=== PATIENT | female | born 1990 | race Caucasian/White ===

== ENCOUNTER 2016-05-02 13:24 | Emergency (ER) | payer OTHER ==
[2016-05-02] MEDS ORDERED: SODIUM CHLORIDE 0.9% 1,000 ML IV STA (14:58)
[2016-05-02] MEDS ORDERED: METOCLOPRAMIDE 5 MG/ML 2 ML VIAL IVP STA (14:58)
--- NOTE | 2016-05-02 14:59 | ED ---
Abdominal Pain HPI - General Chief Complaint: Abdominal Pain Stated Complaint: abd pain. preg 1week Time Seen by Provider: 05/02/16 14:51 Source: patient, RN notes reviewed Mode of arrival: ambulatory Limitations: no limitations - History of Present Illness Initial Comments: 26-year-old female presents emergency Department chief complaint of lower pelvic cramping and abdominal pain. Patient states she's also had some nausea with this. Patient states that she is insensate for the past few days. Patient denies any fever or chills with this. Patient denies any cough cold runny nose. Patient states that she did miss her last menstrual cycle so she is concerned that she may be . Patient states that she hasn't had any other symptoms at this time. 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 - Related Data Home Medications Medication Instructions Recorded Confirmed No Known Home Medications [No 05/02/16 05/02/16 Known Home Medications] Allergies Allergy/AdvReac Type Severity Reaction Status Date / Time adhesive Allergy Rash/Hives Verified 05/02/16 15:00 latex Allergy Rash/Hives Verified 05/02/16 15:00 codeine AdvReac Nausea & Verified 05/02/16 15:00 Vomiting metronidazole [From Flagyl] AdvReac Nausea & Verified 05/02/16 15:00 Vomiting Review of Systems ROS Statement: Those systems with pertinent positive or pertinent negative responses have been documented in the HPI. ROS Other: All systems not noted in ROS Statement are negative. Past Medical History Past Medical History: Hypertension Additional Past Medical History / Comment(s): Back pain History of Any Multi-Drug Resistant Organisms: None Reported Past Surgical History: Ear Surgery Additional Past Surgical History / Comment(s): laproscopy for ovarian cyst removal, D&C, RIGHT EAR X4 Past Anesthesia/Blood Transfusion Reactions: Motion Sickness, Postoperative Nausea & Vomiting (PONV) Past Psychological History: Depression Smoking Status: Former smoker Past Alcohol Use History: Rare Additional Past Alcohol Use History / Comment(s): QUIT SMOKING IN 2014 STARTED SMOKING AT AGE 18/ SMOKED 1/2 PPD OR LESS Past Drug Use History: None Reported - Past Family History FATHER Family Medical History: Cancer General Exam - General Exam Comments Initial Comments: General: The patient is awake and alert, in no distress, and does not appear acutely ill. Eye: Pupils are equal, round and reactive to light, extra-ocular movements are intact; there is normal conjunctiva bilaterally. No signs of icterus. Ears, nose, mouth and throat: There are moist mucous membranes and no oral lesions. Neck: The neck is supple, there is no tenderness. Cardiovascular: There is a regular rate and rhythm. No murmur, rub or gallop is appreciated. Respiratory: Lungs are clear to auscultation, respirations are non-labored, breath sounds are equal. No wheezes, stridor, rales, or rhonchi. Gastrointestinal: Soft, non-distended, or pelvic pain to palpation of the abdomen without masses or organomegaly noted. There is no rebound or guarding present. No CVA tenderness. Bowel sounds are unremarkable. Back: There is no tenderness to palpation in the midline. There is no obvious deformity. No rashes noted. Musculoskeletal: Normal ROM, no tenderness, There is no pedal edema. There is no calf tenderness or swelling. Sensation intact. Pulses equal bilaterally 2+. Neurological: CN II-XII intact, There are no obvious motor or sensory deficits. Coordination appears grossly intact. Speech is normal. Skin: Skin is warm and dry and no rashes or lesions are noted. Psychiatric: Cooperative, appropriate mood & affect, normal judgment. Limitations: no limitations External exam: Present: normal external exam Speculum exam: Present: normal speculum exam, vaginal discharge (white/ minimal brown) By manual exam: Present: normal by manual exam Course Vital Signs 05/02/16 05/02/16 14:12 17:56 Temperature 99 F 97.1 F L Pulse Rate 71 87 Respiratory 20 16 Rate Blood Pressure 120/75 106/55 O2 Sat by Pulse 100 100 Oximetry Medical Decision Making - Medical Decision Making 26-year-old female presents with pelvic cramping and vomiting. At this time patient's pelvic exam was performed as well as the ultrasound. We discussed that her level is very low. We did discuss that she is going to follow up for repeat hCG and she is follow-up with her [facility] [employer] [facility]. We discussed return parameters. We discussed the vaginal discharge is white with some brown this could be the start of blood. Her blood type is patent a positive looking back to the lab work. We did discuss follow-up we discussed all patient's questions. She stated that she understood. This time she'll be discharged home. - Lab Data Result diagrams: 05/02/16 15:10 05/02/16 15:10 Lab Results 05/02/16 05/02/16 05/02/16 Range/Units 14:45 15:10 15:10 WBC 6.9 (3.8-10.6) k/uL RBC 4.23 (3.80-5.40) m/uL Hgb 13.5 (11.4-16.0) gm/dL Hct 40.9 (34.0-46.0) % MCV 96.7 (80.0-100.0) fL MCH 32.0 (25.0-35.0) pg MCHC 33.1 (31.0-37.0) g/dL RDW 12.6 (11.5-15.5) % Plt Count 229 (150-450) k/uL Neutrophils % 62 % Lymphocytes % 30 % Monocytes % 4 % Eosinophils % 2 % Basophils % 0 % Neutrophils # 4.3 (1.3-7.7) k/uL Lymphocytes # 2.1 (1.0-4.8) k/uL Monocytes # 0.3 (0-1.0) k/uL Eosinophils # 0.1 (0-0.7) k/uL Basophils # 0.0 (0-0.2) k/uL Sodium 141 (137-145) mmol/L Potassium 5.9 H (3.5-5.1) mmol/L Chloride 110 H (98-107) mmol/L Carbon Dioxide 20 L (22-30) mmol/L Anion Gap 11 mmol/L BUN 9 (7-17) mg/dL Creatinine 0.70 (0.52-1.04) mg/dL Est GFR (MDRD) Af Amer >60 (>60 ml/min/1.73 sqM) Est GFR (MDRD) Non-Af >60 (>60 ml/min/1.73 sqM) Glucose 89 (74-99) mg/dL Calcium 8.8 (8.4-10.2) mg/dL Total Bilirubin 0.8 (0.2-1.3) mg/dL AST 36 (14-36) U/L ALT 21 (9-52) U/L Alkaline Phosphatase 62 (38-126) U/L Total Protein 7.4 (6.3-8.2) g/dL Albumin 4.4 (3.5-5.0) g/dL Amylase 40 (30-110) U/L HCG, Quant 44.3 mIU/mL Urine HCG, Qual Not Detected (Not Detectd) - Radiology Data Radiology results: report reviewed, image reviewed Disposition Clinical Impression: Pelvic pain, Threatened miscarriage in early Disposition: HOME SELF-CARE Condition: Stable Instructions: Threatened Miscarriage (ED) Additional Instructions: Please use medication as discussed. Please follow up with family doctor if symptoms have not improved over the next two days. Please return to the emergency room if your symptoms increase or worsen or for any other concerns. Referrals: Asael Cheema MD [Primary Care Provider] - 1-2 days Time of Disposition: 18:03
[2016-05-02 15:28] LABS: Basophils % (A) 0 %; CH 33.8; CHCM 35.1; Eosinophils # (A) 0.1 k/uL (0-0.7); Eosinophils % (A) 2 %; HCT 40.9 % (34.0-46.0); HDW 2.73; HGB 13.5 gm/dL (11.4-16.0); Luc # (Auto) 0.08; Luc % (Auto) 1; Lymphocytes # (A) 2.1 k/uL (1.0-4.8); Lymphocytes % (A) 30 %; MCHC 33.1 g/dL (31.0-37.0); MCV 96.7 fL (80.0-100.0); Mean Platelet Volume 7.5; Monocytes # (A) 0.3 k/uL (0-1.0); Monocytes % (A) 4 %; Neutrophils # (A) 4.3 k/uL (1.3-7.7); Neutrophils % (A) 62 %; RBC 4.23 m/uL (3.80-5.40); RDW 12.6 % (11.5-15.5); WBC 6.9 k/uL (3.8-10.6); WBC (Perox) 6.69
[2016-05-02 15:39] LABS: ALT 21 U/L (9-52); AST 36 U/L (14-36); Alkaline Phosphatase 62 U/L (38-126); Amylase 40 U/L (30-110); Anion Gap 11 mmol/L; Blood Urea Nitrogen 9 mg/dL (7-17); Calcium 8.8 mg/dL (8.4-10.2); Carbon Dioxide 20 mmol/L (22-30); Chloride 110 mmol/L (98-107); Glucose 89 mg/dL (74-99); Non-African American GFR(MDRD) >60 (>60 ml/min/1.73 sqM); Sodium 141 mmol/L (137-145); Total Bilirubin 0.8 mg/dL (0.2-1.3); Total Protein 7.4 g/dL (6.3-8.2)
[2016-05-02 15:40] LABS: Potassium 5.9 mmol/L (3.5-5.1)
[2016-05-02 15:54] LABS: HCG,Quantitative Serum 44.3 mIU/mL
[2016-05-02 17:56] VITALS: BP 106/55; PULSE 87; RESP 16; TEMP 97.1
--- NOTE | 2016-05-02 17:57 | US ---
EXAMINATION TYPE: US OB <= 14 wk fetus DATE OF EXAM: 05/02/2016 5:06 PM COMPARISON: Prior exam second of May 2015 CLINICAL HISTORY: Pelvic pain. EXAM PERFORMED: Transvaginal (TV) and Transabdominal (TA) endovaginal scanning performed for better evaluation of the uterus and endometrium. EXAM MEASUREMENTS: GESTATIONAL AGE / DATING Physician Established: not yet established Dates by LMP: (5 weeks/4 days) EDC: 12/29/16 Dates by First Scan: 1st scan today Dates by Current Scan unable to date by todays scan MATERNAL ANATOMY Uterus: 7.0 x 2.9 x 3.1cm Right Ovary: 3.6 x 2.2 x 1.9cm Left Ovary: 2.2 x 1.7 x 1.6cm Post CDS / Adnexa: wnl Presence of corpus luteal cyst: 2.4 x 1.7 x 1.7cm GESTATION / SURVEY Thickened endometrium Date of LMP: 03/24/2016 Beta HcG (if available): 44.3 TECHNOLOGIST IMPRESSION: Possible early , no IUP seen at this time. Endo thickened. Grayscale, color Doppler imaging performed of the right ovary, color flow noted to the right ovary IMPRESSION: No intrauterine is identified at this time, follow-up clinically, consider follow-up imagin g as indicated.
[2016-05-02 19:45] LABS: Appearance,Urine Clear (Clear); Bilirubin,Urine Negative (Negative); Glucose,Urine (UA) Negative (Negative); Ketones,Urine Negative (Negative); Leukocyte Esterase,Urine Negative (Negative); Nitrite,Urine Negative (Negative); PH, Urine 6.5 (5.0-8.0); Protein,Urine Negative (Negative); Specific Gravity,Urine 1.013 (1.001-1.035); UA Billing (MACRO vs. MICRO) CHEM; Urobilinogen,Urine <2.0 mg/dL (<2.0)
== END 2016-05-02 18:15 | disposition home or self-care (01) ==
LOC: EC 13:24
DX: O20.0 Threatened abortion (principal); O34.81 Maternal care for other abnormalities of pelvic organs, first trimester; O26.891 Other specified pregnancy related conditions, first trimester; N83.10 Corpus luteum cyst of ovary, unspecified side; O21.9 Vomiting of pregnancy, unspecified; Z3A.01 Less than 8 weeks gestation of pregnancy; N89.8 Other specified noninflammatory disorders of vagina; Z91.040 Latex allergy status; Z88.5 Allergy status to narcotic agent; Z91.048 Other nonmedicinal substance allergy status; Z88.1 Allergy status to other antibiotic agents; Z87.891 Personal history of nicotine dependence
CPT/HCPCS: 96374; 96361 ×3; 99284; 36415; 80053; 82150; 85025; 81003; 81025; 84702; 87086; 87077; 87186; 76801; 76817; J2765

== ENCOUNTER → 2016-05-04 | Outpatient (CLI) | payer OTHER | END | disposition home or self-care (01) | LOC: LABWHC1 16:19 | PROVIDERS: ATTEND Physician Assistant | DX: O20.0 Threatened abortion (principal); Z3A.00 Weeks of gestation of pregnancy not specified | CPT/HCPCS: 36415; 84702 ==

== ENCOUNTER 2016-05-10 11:55 | Emergency (ER) | payer OTHER ==
[2016-05-10 12:46] VITALS: RESP 16; TEMP 98.7
[2016-05-10 13:00] LABS: Appearance,Urine Clear (Clear); Bilirubin,Urine Negative (Negative); Glucose,Urine (UA) Negative (Negative); Ketones,Urine Negative (Negative); Leukocyte Esterase,Urine Negative (Negative); Nitrite,Urine Negative (Negative); Protein,Urine Negative (Negative); Specific Gravity,Urine 1.001 (1.001-1.035); UA Billing (MACRO vs. MICRO) CHEM; Urobilinogen,Urine <2.0 mg/dL (<2.0)
[2016-05-10] MEDS ORDERED: ONDANSETRON 4 MG/2 ML VIAL IVP STA (13:34)
[2016-05-10] MEDS ORDERED: SODIUM CHLORIDE 0.9% 1,000 ML IV STA ×2 (13:34)
--- NOTE | 2016-05-10 13:40 | ED ---
Nausea/Vomiting/Diarrhea HPI - General Chief complaint: Nausea/Vomiting/Diarrhea Stated complaint: 5 - 6 WEEKS , VOMITING Time Seen by Provider: 05/10/16 13:28 Source: patient Mode of arrival: ambulatory Limitations: no limitations - History of Present Illness Initial comments: This 26-year-old white female presents complaining of some nausea as well as vomiting which is been present for last 3-4 days. She has had occasional diarrhea as well. She has had some lower abdominal cramping during this period. She denies any evidence of vaginal bleeding or discharge. She denies any fever or chills. She states that she has been unable to tolerate food and fluids over this past 3-4 days. She denies any other complaints or modifying factors. She apparently is approximately 5-6 weeks . - Related Data Home Medications Medication Instructions Recorded Confirmed Cephalexin [Keflex] 500 mg PO Q6H 05/10/16 05/10/16 Pnv with Ca,No.72/Iron/FA 1 tab PO HS 05/10/16 05/10/16 [ Plus Tablet] Progesterone,Micronized 200 mg PO HS 05/10/16 05/10/16 [Progesterone] Previous Rx's Medication Instructions Recorded Metoclopramide [Reglan] 10 mg PO Q6H PRN #30 tab 05/10/16 Allergies Allergy/AdvReac Type Severity Reaction Status Date / Time adhesive Allergy Rash/Hives Verified 05/10/16 14:04 latex Allergy Rash/Hives Verified 05/10/16 14:04 codeine AdvReac Nausea & Verified 05/10/16 14:04 Vomiting metronidazole [From Flagyl] AdvReac Nausea & Verified 05/10/16 14:04 Vomiting Review of Systems ROS Statement: Those systems with pertinent positive or pertinent negative responses have been documented in the HPI. ROS Other: All systems not noted in ROS Statement are negative. Past Medical History Past Medical History: Hypertension Additional Past Medical History / Comment(s): Back pain History of Any Multi-Drug Resistant Organisms: None Reported Past Surgical History: Ear Surgery Additional Past Surgical History / Comment(s): laproscopy for ovarian cyst removal, D&C, RIGHT EAR X4 Past Anesthesia/Blood Transfusion Reactions: Motion Sickness, Postoperative Nausea & Vomiting (PONV) Past Psychological History: Depression Smoking Status: Former smoker Past Alcohol Use History: Rare Additional Past Alcohol Use History / Comment(s): QUIT SMOKING IN 2014 STARTED SMOKING AT AGE 18/ SMOKED 1/2 PPD OR LESS Past Drug Use History: None Reported - Past Family History FATHER Family Medical History: Cancer General Exam - General Exam Comments Initial Comments: GENERAL: The patient is well nourished and well hydrated. VITAL SIGNS: Heart rate, blood pressure, respiratory rate reviewed as recorded in nurse's notes. EYES: Pupils are round and reactive. Extraocular movements are intact. No conjunctival / lid redness or swelling. ENT: No external evidence of injury, swelling, or ecchymosis. Airway is patent. Throat is clear. NECK: Nontender. No swelling or evidence of injury. No subcutaneous emphysema. Trachea is midline. No thyroid mass. HEART: Regular rate and rhythm. Good peripheral pulses. LUNGS/CHEST: Breath sounds clear and equal bilaterally. No rales, rhonchi, or wheezes. No ecchymosis, subcutaneous emphysema, or tenderness. ABDOMEN: There is mild tenderness present to the bilateral lower abdomen. No palpable masses or organomegaly. No peritoneal signs. No abdominal wall swelling or ecchymosis. EXTREMITIES: No extremity tenderness. Normal muscle tone and function. No thoracolumbar tenderness. NEUROLOGIC: Sensation is grossly intact. Cranial nerve exam reveals face is symmetrical, tongue is midline, speech is clear. SKIN: No abrasions or ecchymosis is noted. No induration or masses noted. PSYCHIATRIC: Alert and oriented. Appropriate behavior and judgment. Limitations: no limitations Course Vital Signs 05/10/16 12:43 Temperature 98.7 F Pulse Rate 70 Respiratory 16 Rate Blood Pressure 138/78 O2 Sat by Pulse 100 Oximetry Medical Decision Making - Medical Decision Making The patient was seen and examined. An IV is started and she is thoroughly hydrated. She received some Reglan for her nausea with improvement. The laboratory showed a decreased CO2 at 21 she indicates possible mild dehydration. The beta hCG is elevated at 2419. The pelvic ultrasound shows evidence of a right ovarian cyst. A CT a possible gestational sac in the uterus but she appears very early on in her and they could not entirely exclude an ectopic . She is informed of these findings is instructed to return if there is any significant pain on one side or the other. She currently just has occasional mild cramping and symptoms that are not consistent with an ectopic . Her symptoms currently are consistent with hyperemesis gravidarum. Nevertheless, it does not his. As though she is severely dehydrated is felt as though she is stable for discharge. - Lab Data Result diagrams: 05/10/16 14:20 05/10/16 14:20 Lab Results 05/10/16 05/10/16 05/10/16 Range/Units 12:30 14:20 14:20 WBC 9.3 (3.8-10.6) k/uL RBC 4.17 (3.80-5.40) m/uL Hgb 13.8 (11.4-16.0) gm/dL Hct 39.6 (34.0-46.0) % MCV 94.9 (80.0-100.0) fL MCH 33.0 (25.0-35.0) pg MCHC 34.7 (31.0-37.0) g/dL RDW 12.6 (11.5-15.5) % Plt Count 288 (150-450) k/uL Neutrophils % 70 % Lymphocytes % 23 % Monocytes % 5 % Eosinophils % 1 % Basophils % 0 % Neutrophils # 6.5 (1.3-7.7) k/uL Lymphocytes # 2.2 (1.0-4.8) k/uL Monocytes # 0.5 (0-1.0) k/uL Eosinophils # 0.1 (0-0.7) k/uL Basophils # 0.0 (0-0.2) k/uL Sodium (137-145) mmol/L Potassium (3.5-5.1) mmol/L Chloride (98-107) mmol/L Carbon Dioxide (22-30) mmol/L Anion Gap mmol/L BUN (7-17) mg/dL Creatinine (0.52-1.04) mg/dL Est GFR (MDRD) Af Amer (>60 ml/min/1.73 sqM) Est GFR (MDRD) Non-Af (>60 ml/min/1.73 sqM) Glucose (74-99) mg/dL Calcium (8.4-10.2) mg/dL Amylase 32 (30-110) U/L Lipase 49 (23-300) U/L HCG, Quant 2419.4 mIU/mL Urine Color Colorless Urine Appearance Clear (Clear) Urine pH 7.0 (5.0-8.0) Ur Specific [place] 1.001 (1.001-1.035) Urine Protein Negative (Negative) Urine Glucose (UA) Negative (Negative) Urine Ketones Negative (Negative) Urine Blood Negative (Negative) Urine Nitrate Negative (Negative) Urine Bilirubin Negative (Negative) Urine Urobilinogen <2.0 (<2.0) mg/dL Ur Leukocyte Esterase Negative (Negative) 05/10/16 Range/Units 14:20 WBC (3.8-10.6) k/uL RBC (3.80-5.40) m/uL Hgb (11.4-16.0) gm/dL Hct (34.0-46.0) % MCV (80.0-100.0) fL MCH (25.0-35.0) pg MCHC (31.0-37.0) g/dL RDW (11.5-15.5) % Plt Count (150-450) k/uL Neutrophils % % Lymphocytes % % Monocytes % % Eosinophils % % Basophils % % Neutrophils # (1.3-7.7) k/uL Lymphocytes # (1.0-4.8) k/uL Monocytes # (0-1.0) k/uL Eosinophils # (0-0.7) k/uL Basophils # (0-0.2) k/uL Sodium 142 (137-145) mmol/L Potassium 3.8 (3.5-5.1) mmol/L Chloride 106 (98-107) mmol/L Carbon Dioxide 21 L (22-30) mmol/L Anion Gap 15 mmol/L BUN 6 L (7-17) mg/dL Creatinine 0.64 (0.52-1.04) mg/dL Est GFR (MDRD) Af Amer >60 (>60 ml/min/1.73 sqM) Est GFR (MDRD) Non-Af >60 (>60 ml/min/1.73 sqM) Glucose 90 (74-99) mg/dL Calcium 9.7 (8.4-10.2) mg/dL Amylase (30-110) U/L Lipase (23-300) U/L HCG, Quant mIU/mL Urine Color Urine Appearance (Clear) Urine pH (5.0-8.0) Ur Specific [place] (1.001-1.035) Urine Protein (Negative) Urine Glucose (UA) (Negative) Urine Ketones (Negative) Urine Blood (Negative) Urine Nitrate (Negative) Urine Bilirubin (Negative) Urine Urobilinogen (<2.0) mg/dL Ur Leukocyte Esterase (Negative) Disposition Clinical Impression: Dehydration, Hyperemesis gravidarum, Pelvic pain, Nausea and vomiting Disposition: HOME SELF-CARE Condition: Good Instructions: Hyperemesis Gravidarum (ED), Abdominal Pain in (ED) Prescriptions: Metoclopramide [Reglan] 10 mg PO Q6H PRN #30 tab PRN Reason: nausea or vomiting Referrals: Asael Cheema MD [Primary Care Provider] - 1-2 days Peggy Serna DO [Doctor of Osteopathic Medicine] - 05/15/16 Time of Disposition: 16:10
[2016-05-10] MEDS ORDERED: METOCLOPRAMIDE 5 MG/ML 2 ML VIAL IVP STA (14:26)
[2016-05-10 14:35] LABS: Basophils % (A) 0 %; CH 33.8; CHCM 35.8; Eosinophils # (A) 0.1 k/uL (0-0.7); Eosinophils % (A) 1 %; HCT 39.6 % (34.0-46.0); HDW 2.77; HGB 13.8 gm/dL (11.4-16.0); Luc # (Auto) 0.09; Luc % (Auto) 1; Lymphocytes # (A) 2.2 k/uL (1.0-4.8); Lymphocytes % (A) 23 %; MCHC 34.7 g/dL (31.0-37.0); MCV 94.9 fL (80.0-100.0); Mean Platelet Volume 7.5; Monocytes # (A) 0.5 k/uL (0-1.0); Monocytes % (A) 5 %; Neutrophils # (A) 6.5 k/uL (1.3-7.7); Neutrophils % (A) 70 %; RBC 4.17 m/uL (3.80-5.40); RDW 12.6 % (11.5-15.5); WBC 9.3 k/uL (3.8-10.6); WBC (Perox) 9.37
[2016-05-10 15:04] LABS: HCG,Quantitative Serum 2419.4 mIU/mL
--- NOTE | 2016-05-10 15:37 | US ---
EXAMINATION TYPE: US OB <=14 wks transvag DATE OF EXAM: 05/10/2016 3:02 PM COMPARISON: NONE CLINICAL HISTORY: vomiting cramping. EXAM PERFORMED: Transvaginal (TV) and Transabdominal (TA) EXAM MEASUREMENTS: GESTATIONAL AGE / DATING Physician Established: none Dates by LMP: (5 weeks/5 days) EDC: 01/05/2014 Dates by First Scan: none Dates by Current Scan TOO EARLY MATERNAL ANATOMY Uterus: 7.3 X4.2 X 3.9 cm Right Ovary: 3.1 xs 2.3 x 2.1 cm Left Ovary: 2.1 x 1.5 x 1.7 cm Post CDS / Adnexa: wnl Presence of free fluid: no TECHNOLOGIST IMPRESSION: small anechoic structure in uterus ( 0.3cm), corresponding to a 4 week 6 da y gestation No yolk sac or pole identified. Within right ovary is a 2.1 x 1.8 cm complex area, questionable for corpus luteum? Cannot exclude early IUP vs ectopic Correlation with beta-hCG and follow-up examinations are recommended. IMPRESSION: 1. There may be an early gestational sac or decidual reaction. Correlation with beta-hCG and follow-u p is recommended. pole is not identified at this early stage. 2. Cyst on the right ovary. Ectopic is not excluded. Follow-up is recommended.
[2016-05-10 15:45] LABS: Anion Gap 15 mmol/L; Blood Urea Nitrogen 6 mg/dL (7-17); Calcium 9.7 mg/dL (8.4-10.2); Carbon Dioxide 21 mmol/L (22-30); Chloride 106 mmol/L (98-107); Glucose 90 mg/dL (74-99); Non-African American GFR(MDRD) >60 (>60 ml/min/1.73 sqM); Potassium 3.8 mmol/L (3.5-5.1); Sodium 142 mmol/L (137-145)
[2016-05-10 16:34] VITALS: BP 123/71; PULSE 87
== END 2016-05-10 16:34 | disposition home or self-care (01) ==
LOC: EC 11:55
DX: O21.1 Hyperemesis gravidarum with metabolic disturbance (principal); N83.201 Unspecified ovarian cyst, right side; R10.2 Pelvic and perineal pain; Z3A.01 Less than 8 weeks gestation of pregnancy; Z87.891 Personal history of nicotine dependence; Z91.040 Latex allergy status; Z88.3 Allergy status to other anti-infective agents; Z88.5 Allergy status to narcotic agent
CPT/HCPCS: 99284; 36415; 80048; 82150; 83690; 85025; 81003; 84702; 76801; 76817; J2765

== ENCOUNTER 2016-05-26 16:49 | Emergency (ER) | payer OTHER ==
--- NOTE | 2016-05-26 19:33 | ED ---
Female Urogenital HPI - General Chief complaint: Vaginal Bleeding Stated complaint: Vaginal Bleeding - Unknown Length Time Seen by Provider: 05/26/16 19:02 Source: patient, RN notes reviewed Mode of arrival: ambulatory Limitations: no limitations - History of Present Illness Initial comments: 26 yo male presents to the ER with cc of vaginal bleeding in . Patient states her last menstrual cycle was March 31. Patient states she is a area and patient states that she has not had any fever or chills. Patient does admit to some lower abdominal cramping. Patient states she was concerned when she saw the bleeding today so she thought that she should be seen. Patient states that she is not currently having any other symptoms at this time. Patient denies any recent fever, chills, shortness of breath, chest pain, back pain, abdominal pain, nausea vomiting, numbness or tingling, dysuria or hematuria, constipation or diarrhea, headaches or visual changes, or any other current symptoms. Last Menstrual Period: 03/31/16 - Related Data Home Medications Medication Instructions Recorded Confirmed Pnv with Ca,No.72/Iron/FA 1 tab PO HS 05/10/16 05/26/16 [ Plus Tablet] Progesterone,Micronized 200 mg PO HS 05/10/16 05/26/16 [Progesterone] Miconazole 2% Vaginal Cream 1 applic VAGINAL HS 05/26/16 05/26/16 [Monistat 7] Previous Rx's Medication Instructions Recorded Metoclopramide [Reglan] 10 mg PO Q6H PRN #30 tab 05/10/16 Allergies Allergy/AdvReac Type Severity Reaction Status Date / Time adhesive Allergy Rash/Hives Verified 05/26/16 19:20 latex Allergy Rash/Hives Verified 05/26/16 19:20 codeine AdvReac Nausea & Verified 05/26/16 19:20 Vomiting metronidazole [From Flagyl] AdvReac Nausea & Verified 05/26/16 19:20 Vomiting Review of Systems ROS Statement: Those systems with pertinent positive or pertinent negative responses have been documented in the HPI. ROS Other: All systems not noted in ROS Statement are negative. Past Medical History Past Medical History: Hypertension Additional Past Medical History / Comment(s): Back pain History of Any Multi-Drug Resistant Organisms: None Reported Past Surgical History: Ear Surgery Additional Past Surgical History / Comment(s): laproscopy for ovarian cyst removal, D&C, RIGHT EAR X4 Past Anesthesia/Blood Transfusion Reactions: Motion Sickness, Postoperative Nausea & Vomiting (PONV) Past Psychological History: Depression Smoking Status: Former smoker Past Alcohol Use History: None Reported Additional Past Alcohol Use History / Comment(s): QUIT SMOKING IN 2014 STARTED SMOKING AT AGE 18/ SMOKED 1/2 PPD OR LESS Past Drug Use History: None Reported - Past Family History FATHER Family Medical History: Cancer General Exam - General Exam Comments Initial Comments: General: The patient is awake and alert, in no distress, and does not appear acutely ill. Eye: Pupils are equal, round. Ears, nose, mouth and throat: There are moist mucous membranes. Neck: The neck is supple, there is no tenderness. Cardiovascular: There is a regular rate and rhythm. No murmur, rub or gallop is appreciated. Respiratory: Lungs are clear to auscultation, respirations are non-labored, breath sounds are equal. No wheezes, stridor, rales, or rhonchi. Gastrointestinal: Soft, non-distended, non-tender abdomen without masses or organomegaly noted. There is no rebound or guarding present. No CVA tenderness. Bowel sounds are unremarkable. Back: There is no tenderness to palpation in the midline. There is no obvious deformity. No rashes noted. Musculoskeletal: Normal ROM, no tenderness, There is no pedal edema. There is no calf tenderness or swelling. Sensation intact. Pulses equal bilaterally 2+. Neurological: CN II-XII intact, There are no obvious motor or sensory deficits. Coordination appears grossly intact. Speech is normal. Skin: Skin is warm and dry and no rashes or lesions are noted. Psychiatric: Cooperative, appropriate mood & affect, normal judgment. Limitations: no limitations External exam: Present: normal external exam Speculum exam: Present: vaginal bleeding (Minimal) By manual exam: Present: normal by manual exam Course Vital Signs 05/26/16 05/26/16 17:28 19:38 Temperature 98.5 F 98.8 F Pulse Rate 90 65 Respiratory 18 16 Rate Blood Pressure 126/74 104/54 O2 Sat by Pulse 100 99 Oximetry - Reevaluation(s) Reevaluation #1: 05/26/16 20:48 WE will send urine for culture. Medical Decision Making - Medical Decision Making 26-year-old female presents to the emergency department with a chief complaint of vaginal bleeding in . This patient's ultrasound and laboratory is reviewed. At this time we discussed follow-up for repeat hCG and follow-up with her [employer] to Sunday. She was offered STD testing she states that the urine. Discussed return parameters QUESTIONS. She states she understood all questions have been answered. She will be discharged. - Lab Data Result diagrams: 05/26/16 19:30 05/26/16 19:30 Lab Results 05/26/16 05/26/16 05/26/16 Range/Units 19:30 19:30 19:30 WBC 9.7 (3.8-10.6) k/uL RBC 4.01 (3.80-5.40) m/uL Hgb 13.1 (11.4-16.0) gm/dL Hct 38.5 (34.0-46.0) % MCV 95.9 (80.0-100.0) fL MCH 32.7 (25.0-35.0) pg MCHC 34.0 (31.0-37.0) g/dL RDW 13.2 (11.5-15.5) % Plt Count 245 (150-450) k/uL Neutrophils % 64 % Lymphocytes % 28 % Monocytes % 5 % Eosinophils % 2 % Basophils % 0 % Neutrophils # 6.2 (1.3-7.7) k/uL Lymphocytes # 2.7 (1.0-4.8) k/uL Monocytes # 0.5 (0-1.0) k/uL Eosinophils # 0.2 (0-0.7) k/uL Basophils # 0.0 (0-0.2) k/uL Sodium 139 (137-145) mmol/L Potassium 3.7 (3.5-5.1) mmol/L Chloride 105 (98-107) mmol/L Carbon Dioxide 22 (22-30) mmol/L Anion Gap 12 mmol/L BUN 9 (7-17) mg/dL Creatinine 0.62 (0.52-1.04) mg/dL Est GFR (MDRD) Af Amer >60 (>60 ml/min/1.73 sqM) Est GFR (MDRD) Non-Af >60 (>60 ml/min/1.73 sqM) Glucose 76 (74-99) mg/dL Calcium 9.4 (8.4-10.2) mg/dL Total Bilirubin 0.8 (0.2-1.3) mg/dL AST 18 (14-36) U/L ALT 31 (9-52) U/L Alkaline Phosphatase 64 (38-126) U/L Total Protein 7.3 (6.3-8.2) g/dL Albumin 4.2 (3.5-5.0) g/dL HCG, Quant 18813.3 mIU/mL Urine Color Urine Appearance (Clear) Urine pH (5.0-8.0) Ur Specific [place] (1.001-1.035) Urine Protein (Negative) Urine Glucose (UA) (Negative) Urine Ketones (Negative) Urine Blood (Negative) Urine Nitrate (Negative) Urine Bilirubin (Negative) Urine Urobilinogen (<2.0) mg/dL Ur Leukocyte Esterase (Negative) Urine RBC (0-5) /hpf Urine WBC (0-5) /hpf Ur Squamous Epith Cells (0-4) /hpf Urine Bacteria (None) /hpf Urine Mucus (None) /hpf Urine HCG, Qual (Not Detectd) Blood Type A Positive Blood Type Recheck No 05/26/16 05/26/16 Range/Units 19:30 19:30 WBC (3.8-10.6) k/uL RBC (3.80-5.40) m/uL Hgb (11.4-16.0) gm/dL Hct (34.0-46.0) % MCV (80.0-100.0) fL MCH (25.0-35.0) pg MCHC (31.0-37.0) g/dL RDW (11.5-15.5) % Plt Count (150-450) k/uL Neutrophils % % Lymphocytes % % Monocytes % % Eosinophils % % Basophils % % Neutrophils # (1.3-7.7) k/uL Lymphocytes # (1.0-4.8) k/uL Monocytes # (0-1.0) k/uL Eosinophils # (0-0.7) k/uL Basophils # (0-0.2) k/uL Sodium (137-145) mmol/L Potassium (3.5-5.1) mmol/L Chloride (98-107) mmol/L Carbon Dioxide (22-30) mmol/L Anion Gap mmol/L BUN (7-17) mg/dL Creatinine (0.52-1.04) mg/dL Est GFR (MDRD) Af Amer (>60 ml/min/1.73 sqM) Est GFR (MDRD) Non-Af (>60 ml/min/1.73 sqM) Glucose (74-99) mg/dL Calcium (8.4-10.2) mg/dL Total Bilirubin (0.2-1.3) mg/dL AST (14-36) U/L ALT (9-52) U/L Alkaline Phosphatase (38-126) U/L Total Protein (6.3-8.2) g/dL Albumin (3.5-5.0) g/dL HCG, Quant mIU/mL Urine Color Yellow Urine Appearance Cloudy H (Clear) Urine pH 7.0 (5.0-8.0) Ur Specific [place] 1.014 (1.001-1.035) Urine Protein Negative (Negative) Urine Glucose (UA) Negative (Negative) Urine Ketones Negative (Negative) Urine Blood Moderate H (Negative) Urine Nitrate Negative (Negative) Urine Bilirubin Negative (Negative) Urine Urobilinogen 2.0 (<2.0) mg/dL Ur Leukocyte Esterase Negative (Negative) Urine RBC 1 (0-5) /hpf Urine WBC 2 (0-5) /hpf Ur Squamous Epith Cells 5 H (0-4) /hpf Urine Bacteria Occasional H (None) /hpf Urine Mucus Rare H (None) /hpf Urine HCG, Qual Detected (Not Detectd) Blood Type Blood Type Recheck Disposition Clinical Impression: Threatened miscarriage Disposition: HOME SELF-CARE Condition: Stable Instructions: Threatened Miscarriage (ED) Additional Instructions: Please use medication as discussed. Please follow up with family doctor if symptoms have not improved over the next two days. Please return to the emergency room if your symptoms increase or worsen or for any other concerns. Referrals: Asael Cheema MD [Primary Care Provider] - 1-2 days
[2016-05-26 19:48] LABS: Basophils % (A) 0 %; CH 33.8; CHCM 35.4; Eosinophils # (A) 0.2 k/uL (0-0.7); Eosinophils % (A) 2 %; HCT 38.5 % (34.0-46.0); HDW 2.74; HGB 13.1 gm/dL (11.4-16.0); Luc # (Auto) 0.11; Luc % (Auto) 1; Lymphocytes # (A) 2.7 k/uL (1.0-4.8); Lymphocytes % (A) 28 %; MCH 32.7 pg (25.0-35.0); MCV 95.9 fL (80.0-100.0); Mean Platelet Volume 7.5; Monocytes # (A) 0.5 k/uL (0-1.0); Monocytes % (A) 5 %; Neutrophils # (A) 6.2 k/uL (1.3-7.7); Neutrophils % (A) 64 %; RBC 4.01 m/uL (3.80-5.40); RDW 13.2 % (11.5-15.5); WBC 9.7 k/uL (3.8-10.6); WBC (Perox) 10.08
[2016-05-26 19:51] LABS: Appearance,Urine Cloudy (Clear); Bacteria,Urine Occasional /hpf; Bilirubin,Urine Negative (Negative); Glucose,Urine (UA) Negative (Negative); Ketones,Urine Negative (Negative); Leukocyte Esterase,Urine Negative (Negative); Mucus,Urine Rare /hpf; Nitrite,Urine Negative (Negative); Particle Count 15828; Protein,Urine Negative (Negative); RBC,Urine 1 /hpf (0-5); Specific Gravity,Urine 1.014 (1.001-1.035); Squamous Epithelial Cell,Urine 5 /hpf (0-4); UA Billing (MACRO vs. MICRO) MICRO; WBC,Urine 2 /hpf (0-5)
[2016-05-26 20:00] LABS: ALT 31 U/L (9-52); AST 18 U/L (14-36); Alkaline Phosphatase 64 U/L (38-126); Anion Gap 12 mmol/L; Blood Urea Nitrogen 9 mg/dL (7-17); Calcium 9.4 mg/dL (8.4-10.2); Carbon Dioxide 22 mmol/L (22-30); Chloride 105 mmol/L (98-107); Glucose 76 mg/dL (74-99); Non-African American GFR(MDRD) >60 (>60 ml/min/1.73 sqM); Potassium 3.7 mmol/L (3.5-5.1); Sodium 139 mmol/L (137-145); Total Bilirubin 0.8 mg/dL (0.2-1.3); Total Protein 7.3 g/dL (6.3-8.2)
[2016-05-26 20:47] LABS: HCG,Quantitative Serum 24448.3 mIU/mL
--- NOTE | 2016-05-26 20:56 | US ---
EXAMINATION TYPE: US OB <= 14 wk fetus DATE OF EXAM: 05/26/2016 8:15 PM COMPARISON: Previous in PACS CLINICAL HISTORY: Pain. Light vaginal bleeding today EXAM PERFORMED: Transabdominal (TA) EXAM MEASUREMENTS: GESTATIONAL AGE / DATING Physician Established: Not yet established Dates by LMP: (8 weeks/0 days) EDC: 01/05/2017 Dates by First Scan: No IUP Seen Dates by Current Scan for: (6 weeks/3 days) EDC: 01/16/2017 MATERNAL ANATOMY Uterus: 11.0 x 5.3 x 2.6 cm Right Ovary: 2.6 x 2.1 x 2.1 cm Left Ovary: 2.2 x 1.3 x 1.9 cm Post CDS / Adnexa: wnl Presence of free fluid: No Presence of corpus luteal cyst: Right Ovary= 1.7 x 1.7 x 1.8 cm Presence of subchorionic bleed: No GESTATION / SURVEY CRL: 0.6 cm (6 weeks/3 days) MSD: wnl Yolk Sac (normal less than 6mm): 4mm Heart Rate: 143 bpm Rhythm: Normal IUP: Viable IUP Date of LMP: 03/31/2016 TECHNOLOGIST IMPRESSION: Single, viable IUP/ Pt has known uterine unicornis, this is visualized with uterus "curving" to right side IMPRESSION: The ultrasound gestational age is 6 weeks 3 days. The DERIAN is 01/15/2017. I see no complicating process .
[2016-05-26 21:45] VITALS: BP 115/64; PULSE 64; RESP 18; TEMP 98.3
== END 2016-05-26 21:47 | disposition home or self-care (01) ==
LOC: EC 16:49
DX: O20.0 Threatened abortion (principal); Z3A.01 Less than 8 weeks gestation of pregnancy; Z87.891 Personal history of nicotine dependence; Z79.899 Other long term (current) drug therapy; Z88.5 Allergy status to narcotic agent; Z88.1 Allergy status to other antibiotic agents; Z91.040 Latex allergy status; Z91.048 Other nonmedicinal substance allergy status
CPT/HCPCS: 36415; 76801; 80053; 81001; 81025; 84702; 85025; 86900; 86901; 87086; 99284

== ENCOUNTER → 2016-05-29 | Outpatient (CLI) | payer OTHER | END | disposition home or self-care (01) | LOC: LABWHC1 07:28 | PROVIDERS: ATTEND Physician Assistant | DX: O20.0 Threatened abortion (principal) | CPT/HCPCS: 36415; 84702 ==

== ENCOUNTER → 2016-05-29 | Outpatient (CLI) | payer OTHER ==
--- NOTE | 2016-05-29 08:02 | US ---
EXAMINATION TYPE: US OB <= 14 wk fetus DATE OF EXAM: 05/29/2016 7:19 AM COMPARISON: NONE CLINICAL HISTORY: 26-year-old female First trimester spotting O46.91. patient was in ER yuliya night and had an exam done showing a viable IUP. TECHNIQUE: Transabdominal scanning FINDINGS: EXAM MEASUREMENTS: GESTATIONAL AGE / DATING Physician Established: not established Dates by LMP: (8 weeks/3 days) EDC: 01/15/2017 Dates by First Scan: (6 weeks/6 days) EDC: 01/16/2017 Dates by Current Scan for: (7 weeks/0 days) EDC: 01/15/2017 MATERNAL ANATOMY Uterus: 10.7 x 4.1 x 5.2 cm. The previous exam commented on a known unicornuate uterus. The sonograph er does not provide that history on the present exam. There may be a tiny 6 mm perigestational bleed along the superior margin of the gestational sac. Right Ovary: 2.9 x 1.8 x 1.6 cm Left Ovary: 1.9 x 1.6 x 2.4 cm Post CDS / Adnexa: wnl Presence of free fluid: no free fluid GESTATION / SURVEY CRL: 1.0cm (7 weeks/0 days) Yolk Sac (normal less than 6mm): 3 mm Heart Rate: 143 bpm Rhythm: Normal IUP: viable IMPRESSION: 1. Single live intrauterine with gestational age of 6 weeks 6 days based on the dating scan of 05/26/2016. Current ultrasound biometry is 17 weeks 0 days (+/- 4 days). 2. There may be a tiny 6 mm superior perigestational bleed. Follow-up as clinically indicated. 3. We note a history of unicornuate uterus on the prior exam. That history is not provided on the cur amnat study. 4. Complete survey recommended at 18-20 weeks.
== END | disposition home or self-care (01) ==
LOC: RADUSWWP 06:58
PROVIDERS: ATTEND Obstetrics & Gynecology
DX: O46.91 Antepartum hemorrhage, unspecified, first trimester (principal); Z36 Encounter for antenatal screening of mother; Z3A.01 Less than 8 weeks gestation of pregnancy
CPT/HCPCS: 76801

== ENCOUNTER → 2016-05-31 | Outpatient (CLI) | payer OTHER ==
[2016-05-31 17:47] LABS: CH 33.6; CHCM 34.9; HCT 38.7 % (34.0-46.0); HDW 2.71; HGB 13.1 gm/dL (11.4-16.0); MCH 32.8 pg (25.0-35.0); MCHC 33.9 g/dL (31.0-37.0); MCV 96.8 fL (80.0-100.0); RDW 12.8 % (11.5-15.5); WBC 10.8 k/uL (3.8-10.6)
[2016-05-31 17:56] LABS: Glucose 83 mg/dL (74-99); Non-African American GFR(MDRD) >60 (>60 ml/min/1.73 sqM)
[2016-05-31 18:27] LABS: Hepatitis B Surface Ag Index 0.08
[2016-06-02 04:40] LABS: Toxoplasma Antibody (IgG) <3.0 IU/mL (<7.2)
[2016-06-02 07:35] LABS: HIV-1/HIV-2 Ab Screen NONREAC (NON REAC)
== END | disposition home or self-care (01) ==
LOC: LABWHC1 17:20
PROVIDERS: ATTEND Obstetrics & Gynecology
DX: O26.811 Pregnancy related exhaustion and fatigue, first trimester (principal); Z3A.00 Weeks of gestation of pregnancy not specified
CPT/HCPCS: 36415; 82565; 82947; 85027; 86762; 86777; 86778; 86780; 86850; 86900; 86901; 87340; 87389

== ENCOUNTER 2016-06-01 20:06 | Emergency (ER) | payer OTHER ==
[2016-06-01 20:33] VITALS: TEMP 98.9
[2016-06-01] MEDS ORDERED: SODIUM CHLORIDE 0.9% 500 ML IV ONE (20:57)
--- NOTE | 2016-06-01 23:07 | ED ---
Female Urogenital HPI - General Chief complaint: Vaginal Bleeding Stated complaint: bleeding, 8 weeks preg Time Seen by Provider: 06/01/16 20:37 Source: patient Mode of arrival: ambulatory Limitations: no limitations - History of Present Illness Initial comments: This patient is 26-year-old woman who has had approximately 2-3 hours of painless vaginal bleeding. She believes she is about 8 weeks by ultrasound. She states that she was at work tonight and noticed she had a gush of blood. States it was really. But has slowed. Patient denies any abdominal pain, passing tissue, fever, symptoms of anemia including no chest pain, dyspnea , hemoptysis, palpitations. No leg swelling or pain MD Complaint: vaginal bleeding -: hour(s) Severity: moderate Quality: other (No pain) Consistency: other (Slowly) Improves with: none Worsens with: none Last Menstrual Period: 03/31/16 Patient : Yes Associated Symptoms: denies other symptoms - Related Data Home Medications Medication Instructions Recorded Confirmed Pnv with Ca,No.72/Iron/FA 1 tab PO HS 05/10/16 06/01/16 [ Plus Tablet] Progesterone,Micronized 200 mg PO HS 05/10/16 06/01/16 [Progesterone] Allergies Allergy/AdvReac Type Severity Reaction Status Date / Time adhesive Allergy Rash/Hives Verified 06/01/16 21:04 latex Allergy Rash/Hives Verified 06/01/16 21:04 codeine AdvReac Nausea & Verified 06/01/16 21:04 Vomiting metronidazole [From Flagyl] AdvReac Nausea & Verified 06/01/16 21:04 Vomiting Review of Systems ROS Statement: Those systems with pertinent positive or pertinent negative responses have been documented in the HPI. ROS Other: All systems not noted in ROS Statement are negative. Constitutional: Denies: fever, chills Respiratory: Denies: cough, dyspnea, wheezes Cardiovascular: Denies: chest pain, palpitations, edema, syncope Gastrointestinal: Denies: abdominal pain, nausea, vomiting, diarrhea, constipation Genitourinary: Reports: abnormal menses. Denies: dysuria, hematuria, dyspareunia Musculoskeletal: Denies: back pain Skin: Denies: rash Neurological: Denies: headache, weakness, numbness Hematological/Lymphatic: Denies: easy bleeding Past Medical History Past Medical History: Hypertension Additional Past Medical History / Comment(s): Back pain History of Any Multi-Drug Resistant Organisms: None Reported Past Surgical History: Ear Surgery Additional Past Surgical History / Comment(s): laproscopy for ovarian cyst removal, D&C, RIGHT EAR X4 Past Anesthesia/Blood Transfusion Reactions: Motion Sickness, Postoperative Nausea & Vomiting (PONV) Past Psychological History: Depression Smoking Status: Former smoker Past Alcohol Use History: None Reported Additional Past Alcohol Use History / Comment(s): QUIT SMOKING IN 2014 STARTED SMOKING AT AGE 18/ SMOKED 1/2 PPD OR LESS Past Drug Use History: None Reported - Past Family History FATHER Family Medical History: Cancer General Exam Limitations: no limitations General appearance: alert, in no apparent distress Head exam: Present: atraumatic, normocephalic, normal inspection Eye exam: Present: normal appearance. Absent: scleral icterus, conjunctival injection Respiratory exam: Present: normal lung sounds bilaterally. Absent: respiratory distress, wheezes, rales, rhonchi, stridor Cardiovascular Exam: Present: regular rate, normal rhythm, normal heart sounds. Absent: systolic murmur, diastolic murmur, rubs, gallop GI/Abdominal exam: Present: soft. Absent: distended, tenderness, guarding, rebound, rigid External exam: Present: normal external exam. Absent: erythema, swelling, lesions, lacerations, ecchymosis Speculum exam: Present: normal speculum exam, vaginal bleeding. Absent: erythema, cervical discharge, foreign body, tissue, laceration By manual exam: Present: normal by manual exam. Absent: cervical motion tenderness, adnexal tenderness, adnexal mass, uterine tenderness Extremities exam: Present: normal inspection, normal capillary refill. Absent: pedal edema, calf tenderness Back exam: Absent: CVA tenderness (R), CVA tenderness (L) Neurological exam: Present: alert Skin exam: Present: warm, dry, intact, normal color. Absent: rash Course Vital Signs 06/01/16 06/01/16 20:31 23:29 Temperature 98.9 F Pulse Rate 86 80 Respiratory 18 12 Rate Blood Pressure 124/73 120/80 O2 Sat by Pulse 100 100 Oximetry Medical Decision Making - Lab Data Lab Results 06/01/16 Range/Units 21:00 HCG, Quant 85240.3 mIU/mL Disposition Clinical Impression: Threatened miscarriage in early , Subchorionic hematoma in first trimester Disposition: HOME SELF-CARE Condition: Good Instructions: Subchorionic Hemorrhage (ED) Referrals: Asael Cheema MD [Primary Care Provider] - 1-2 days Peggy Serna DO [Doctor of Osteopathic Medicine] - 1-2 days
[2016-06-01 23:30] VITALS: BP 120/80; PULSE 80; RESP 12
--- NOTE | 2016-06-01 23:39 | US ---
EXAMINATION TYPE: US OB <= 14 wk fetus DATE OF EXAM: 06/01/2016 10:16 PM COMPARISON: 05/29/2016 CLINICAL HISTORY: Bleeding. EXAM PERFORMED: Transabdominal (TA) EXAM MEASUREMENTS: GESTATIONAL AGE / DATING Physician Established: ( 8 weeks/ 6 days) EDC: 01/05/2017 Dates by LMP: ( 8 weeks/ 6 days) EDC: 01/05/2017 Dates by First Scan: (7 weeks/ 2 days) EDC: 01/16/2017 Dates by Current Scan for: ( 8 weeks/0 days) EDC: 01/11/2017 MATERNAL ANATOMY Uterus: 8.1 x 4.0 x 4.2 cm Right Ovary: 2.4 x 1.6 x 1.7 cm Left Ovary: 2.6 x 1.1 x 1.1 cm Post CDS / Adnexa: wnl Presence of free fluid: No Presence of corpus luteal cyst: No Presence of subchorionic bleed: Yes, measuring 0.8 x 0.5 x 0.5 cm GESTATION / SURVEY CRL: 1.56 cm (8 weeks/0 days) Yolk Sac (normal less than 6mm): 3 mm Heart Rate: 167 bpm Rhythm: Normal IUP: Viable IUP Date of LMP: 03/31/2016 Beta HcG (if available): [phone] on 05/29/2016 IMPRESSION: 1. Single live intrauterine of 8 weeks and 0 days by current ultrasound with heart ra te of 1 67 bpm with DERIAN by current ultrasound of 01/11/2017. 2. Again noted is small subchorionic bleed surrounding the intrauterine gestational sac measuring 0.8 x 0.5 x 0.5 cm without significant change. Previous measurement was approximately 6 mm on date 2016. The small difference in the measurement could be technical. A phone report is given to Dr. Choudhury at the time of the dictation.
== END 2016-06-01 23:29 | disposition home or self-care (01) ==
LOC: EC 20:06
DX: O20.0 Threatened abortion (principal); O20.9 Hemorrhage in early pregnancy, unspecified; Z3A.08 8 weeks gestation of pregnancy; Z87.891 Personal history of nicotine dependence; Z91.040 Latex allergy status; Z91.048 Other nonmedicinal substance allergy status; Z88.5 Allergy status to narcotic agent; Z79.899 Other long term (current) drug therapy
CPT/HCPCS: 36415; 76801; 84702; 96360; 96361; 99284

== ENCOUNTER 2016-06-05 21:02 | Emergency (ER) | payer OTHER ==
[2016-06-05 22:20] LABS: Basophils % (A) 0 %; CH 33.9; CHCM 35.6; Eosinophils # (A) 0.1 k/uL (0-0.7); Eosinophils % (A) 1 %; HCT 38.2 % (34.0-46.0); HDW 2.75; HGB 13.1 gm/dL (11.4-16.0); Luc # (Auto) 0.14; Luc % (Auto) 1; Lymphocytes # (A) 2.4 k/uL (1.0-4.8); Lymphocytes % (A) 21 %; MCH 32.8 pg (25.0-35.0); MCHC 34.3 g/dL (31.0-37.0); MCV 95.6 fL (80.0-100.0); Mean Platelet Volume 6.9; Monocytes # (A) 0.4 k/uL (0-1.0); Monocytes % (A) 4 %; Neutrophils # (A) 8.5 k/uL (1.3-7.7); Neutrophils % (A) 74 %; WBC 11.5 k/uL (3.8-10.6); WBC (Perox) 11.56
[2016-06-05 22:32] LABS: AST 21 U/L (14-36); Alkaline Phosphatase 73 U/L (38-126); Anion Gap 12 mmol/L; Blood Urea Nitrogen 11 mg/dL (7-17); Carbon Dioxide 23 mmol/L (22-30); Chloride 103 mmol/L (98-107); Glucose 90 mg/dL (74-99); Non-African American GFR(MDRD) >60 (>60 ml/min/1.73 sqM); Potassium 3.6 mmol/L (3.5-5.1); Sodium 138 mmol/L (137-145); Total Bilirubin 0.7 mg/dL (0.2-1.3); Total Protein 7.7 g/dL (6.3-8.2)
[2016-06-05 22:33] LABS: Partial Thromboplastin Time 23.5 sec (22.0-30.0); Prothrombin Time 10.5 sec (9.0-12.0)
[2016-06-05 22:38] LABS: ALT 36 U/L (9-52)
--- NOTE | 2016-06-05 22:47 | ED ---
Female Urogenital HPI - General Chief complaint: Vaginal Bleeding Stated complaint: vaginal bleeding/9 weeks Time Seen by Provider: 06/05/16 21:39 Source: patient, RN notes reviewed Mode of arrival: wheelchair Limitations: no limitations - History of Present Illness Initial comments: Patient is a 26-year-old female that is approximately 9 weeks with 1 hour of increased vaginal bleeding and cramping. She states that for the past week and was diagnosed with subchorionic bleed and she's had increased vaginal bleeding. Patient reports that this bleeding is similar to the bleeding that she had at that time. 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 Patient states Dr. Serna is her [employer]. She denies any other associated symptoms. - Related Data Home Medications Medication Instructions Recorded Confirmed Pnv with Ca,No.72/Iron/FA 1 tab PO HS 05/10/16 06/05/16 [ Plus Tablet] Progesterone,Micronized 200 mg PO HS 05/10/16 06/05/16 [Progesterone] Metoclopramide [Reglan] 10 mg PO Q6H PRN 06/05/16 06/05/16 Allergies Allergy/AdvReac Type Severity Reaction Status Date / Time adhesive Allergy Rash/Hives Verified 06/05/16 21:59 latex Allergy Rash/Hives Verified 06/05/16 21:59 codeine AdvReac Nausea & Verified 06/05/16 21:59 Vomiting metronidazole [From Flagyl] AdvReac Nausea & Verified 06/05/16 21:59 Vomiting Review of Systems ROS Statement: Those systems with pertinent positive or pertinent negative responses have been documented in the HPI. ROS Other: All systems not noted in ROS Statement are negative. Past Medical History Past Medical History: Hypertension Additional Past Medical History / Comment(s): Back pain History of Any Multi-Drug Resistant Organisms: None Reported Past Surgical History: Ear Surgery Additional Past Surgical History / Comment(s): laproscopy for ovarian cyst removal, D&C, RIGHT EAR X4 Past Anesthesia/Blood Transfusion Reactions: Motion Sickness, Postoperative Nausea & Vomiting (PONV) Past Psychological History: Depression Smoking Status: Former smoker Past Alcohol Use History: None Reported Additional Past Alcohol Use History / Comment(s): QUIT SMOKING IN 2014 STARTED SMOKING AT AGE 18/ SMOKED 1/2 PPD OR LESS Past Drug Use History: None Reported - Past Family History FATHER Family Medical History: Cancer General Exam - General Exam Comments Initial Comments: Patient is a 26 year old female No acute distress. Limitations: no limitations General appearance: alert, in no apparent distress Head exam: Present: atraumatic, normocephalic, normal inspection Eye exam: Present: normal appearance, PERRL, EOMI. Absent: scleral icterus, conjunctival injection, periorbital swelling ENT exam: Present: normal exam, normal oropharynx, mucous membranes moist, TM's normal bilaterally Neck exam: Present: normal inspection. Absent: tenderness, meningismus, lymphadenopathy Respiratory exam: Present: normal lung sounds bilaterally. Absent: respiratory distress, wheezes, rales, rhonchi, stridor Cardiovascular Exam: Present: regular rate, normal rhythm, normal heart sounds. Absent: systolic murmur, diastolic murmur, rubs, gallop, clicks GI/Abdominal exam: Present: soft, normal bowel sounds. Absent: distended, tenderness, guarding, rebound, rigid External exam: Present: normal external exam. Absent: swelling Speculum exam: Present: vaginal bleeding (cervical os is linear. Heavy clots, no signs of particles of conception.). Absent: normal speculum exam By manual exam: Present: normal by manual exam. Absent: cervical motion tenderness, adnexal tenderness, adnexal mass, uterine enlargement Extremities exam: Present: normal inspection, full ROM, normal capillary refill. Absent: tenderness, pedal edema, joint swelling, calf tenderness Back exam: Present: normal inspection Neurological exam: Present: alert, oriented X3, CN II-XII intact Psychiatric exam: Present: normal affect, normal mood Course Vital Signs 06/05/16 06/05/16 21:27 22:28 Temperature 98.8 F 98.1 F Pulse Rate 100 74 Respiratory 20 16 Rate Blood Pressure 125/76 118/69 O2 Sat by Pulse 100 97 Oximetry Medical Decision Making - Medical Decision Making Patient a 26 year old 9 week female with vaginal bleeding for 1 hour. She was diagnosed with subchorionic bleed early this week. She states that she did repeat her hcg 2 days ago. I am unable to see those labs at this time. [place]cg 4 [place] [address] [address]. Patient speculum exam had multiple dark clots and some bright red blood. She has mild pelvic cramping. Patient is a postive. She will be given a script for repeat hcg, and follow up with obgyn. She has an appointment on Sunday. She will be given note for work and placed on restrictions for lifting. REturn parameters discussed. - Lab Data Result diagrams: 06/05/16 22:04 06/05/16 22:04 Lab Results 06/05/16 06/05/16 06/05/16 Range/Units 22:04 22:04 22:04 WBC 11.5 H (3.8-10.6) k/uL RBC 4.00 (3.80-5.40) m/uL Hgb 13.1 (11.4-16.0) gm/dL Hct 38.2 (34.0-46.0) % MCV 95.6 (80.0-100.0) fL MCH 32.8 (25.0-35.0) pg MCHC 34.3 (31.0-37.0) g/dL RDW 13.0 (11.5-15.5) % Plt Count 258 (150-450) k/uL Neutrophils % 74 % Lymphocytes % 21 % Monocytes % 4 % Eosinophils % 1 % Basophils % 0 % Neutrophils # 8.5 H (1.3-7.7) k/uL Lymphocytes # 2.4 (1.0-4.8) k/uL Monocytes # 0.4 (0-1.0) k/uL Eosinophils # 0.1 (0-0.7) k/uL Basophils # 0.0 (0-0.2) k/uL PT (9.0-12.0) sec INR (<1.1) APTT (22.0-30.0) sec Sodium 138 (137-145) mmol/L Potassium 3.6 (3.5-5.1) mmol/L Chloride 103 (98-107) mmol/L Carbon Dioxide 23 (22-30) mmol/L Anion Gap 12 mmol/L BUN 11 (7-17) mg/dL Creatinine 0.79 (0.52-1.04) mg/dL Est GFR (MDRD) Af Amer >60 (>60 ml/min/1.73 sqM) Est GFR (MDRD) Non-Af >60 (>60 ml/min/1.73 sqM) Glucose 90 (74-99) mg/dL Calcium 9.0 (8.4-10.2) mg/dL Total Bilirubin 0.7 (0.2-1.3) mg/dL AST 21 (14-36) U/L ALT 36 (9-52) U/L Alkaline Phosphatase 73 (38-126) U/L Total Protein 7.7 (6.3-8.2) g/dL Albumin 4.5 (3.5-5.0) g/dL HCG, Quant mIU/mL Blood Type A Positive Blood Type Recheck No 06/05/16 06/05/16 Range/Units 22:04 22:04 WBC (3.8-10.6) k/uL RBC (3.80-5.40) m/uL Hgb (11.4-16.0) gm/dL Hct (34.0-46.0) % MCV (80.0-100.0) fL MCH (25.0-35.0) pg MCHC (31.0-37.0) g/dL RDW (11.5-15.5) % Plt Count (150-450) k/uL Neutrophils % % Lymphocytes % % Monocytes % % Eosinophils % % Basophils % % Neutrophils # (1.3-7.7) k/uL Lymphocytes # (1.0-4.8) k/uL Monocytes # (0-1.0) k/uL Eosinophils # (0-0.7) k/uL Basophils # (0-0.2) k/uL PT 10.5 (9.0-12.0) sec INR 1.0 (<1.1) APTT 23.5 (22.0-30.0) sec Sodium (137-145) mmol/L Potassium (3.5-5.1) mmol/L Chloride (98-107) mmol/L Carbon Dioxide (22-30) mmol/L Anion Gap mmol/L BUN (7-17) mg/dL Creatinine (0.52-1.04) mg/dL Est GFR (MDRD) Af Amer (>60 ml/min/1.73 sqM) Est GFR (MDRD) Non-Af (>60 ml/min/1.73 sqM) Glucose (74-99) mg/dL Calcium (8.4-10.2) mg/dL Total Bilirubin (0.2-1.3) mg/dL AST (14-36) U/L ALT (9-52) U/L Alkaline Phosphatase (38-126) U/L Total Protein (6.3-8.2) g/dL Albumin (3.5-5.0) g/dL HCG, Quant 35502.8 mIU/mL Blood Type Blood Type Recheck Disposition Clinical Impression: Threatened miscarriage Disposition: HOME SELF-CARE Condition: Good Instructions: Threatened Miscarriage (ED) Additional Instructions: Patient instructed to repeat lab work. Return to the [facility] if any alarming signs or symptoms occur. Referrals: Asael Cheema MD [Primary Care Provider] - 1-2 days Peggy Serna DO [Doctor of Osteopathic Medicine] - 1-2 days Time of Disposition: 23:44
[2016-06-05 22:59] VITALS: BP 118/69; PULSE 74; RESP 16; TEMP 98.1
== END 2016-06-06 | disposition home or self-care (01) ==
LOC: EC 21:02
DX: O20.0 Threatened abortion (principal); O16.1 Unspecified maternal hypertension, first trimester; Z3A.09 9 weeks gestation of pregnancy; Z87.891 Personal history of nicotine dependence; Z79.899 Other long term (current) drug therapy; Z88.1 Allergy status to other antibiotic agents; Z91.040 Latex allergy status; Z91.048 Other nonmedicinal substance allergy status; Z88.5 Allergy status to narcotic agent
CPT/HCPCS: 36415; 76801; 80053; 84702; 85025; 85610; 85730; 86900; 86901; 99284

== ENCOUNTER → 2016-06-06 | Outpatient (CLI) | payer OTHER ==
--- NOTE | 2016-06-06 15:26 | US ---
EXAMINATION TYPE: US OB <= 14 wk fetus DATE OF EXAM: 06/06/2016 2:24 PM COMPARISON: Prior pelvic ultrasound from 5 days earlier CLINICAL HISTORY: O46.91 BLEEDING. Positive beta-hCG test, history of uterine anomaly EXAM PERFORMED: Transabdominal (TA) pelvic ultrasound. EXAM MEASUREMENTS: GESTATIONAL AGE / DATING Physician Established: not yet established Dates by LMP: (9 weeks/4 days) EDC: 01/05/17 Dates by First Scan:8 weeks 1 day EDC: 01/15/17 Dates by Current Scan for: (8 weeks/3 days) EDC: 01/13/17 MATERNAL ANATOMY Uterus: 11.1 x 5.7 x 5.8 cm Right Ovary: 2.3 x 1.6 x 1.6cm Left Ovary: 2.9 x 2.1 x 1.8cm Post CDS / Adnexa: wnl Presence of free fluid: no GESTATION / SURVEY CRL: 1.8cm (8 weeks/3 days) Yolk Sac (normal less than 6mm): 3mm Heart Rate: 167 bpm Rhythm: Normal IUP: Viable IUP Date of LMP: 03/31/17 Beta HcG (if available): TECHNOLOGIST IMPRESSION: Viable IUP Single live intrauterine gestation is redemonstrated as gestational sac, yolk sac, and pole are again identified. heart tones are regular measure 167 bpm. Previously visualized small subchor ionic hemorrhage is not clearly identified on current study. No free fluid is seen in pelvic cul-de-s ac. Both ovaries are present. No suspicious extraovarian adnexal masses are seen. IMPRESSION: No ultrasound evidence for complication as above.
== END | disposition home or self-care (01) ==
LOC: RADUSWWP 13:47
PROVIDERS: ATTEND Obstetrics & Gynecology
DX: O46.91 Antepartum hemorrhage, unspecified, first trimester (principal); Z3A.09 9 weeks gestation of pregnancy
CPT/HCPCS: 76801

== ENCOUNTER 2016-06-21 12:03 | Emergency (ER) | payer OTHER ==
[2016-06-21] MEDS ORDERED: FAMOTIDINE 20 MG/2 ML VIAL IV STA (14:54)
[2016-06-21] MEDS ORDERED: METOCLOPRAMIDE 5 MG/ML 2 ML VIAL IVP STA (14:54)
[2016-06-21] MEDS ORDERED: SODIUM CHLORIDE 0.9% 1,000 ML IV STA (14:54)
--- NOTE | 2016-06-21 14:58 | ED ---
GI Bleed HPI - General Chief complaint: GI Bleed Stated complaint: 11 WEEKS , VOMITING BLOOD Time Seen by Provider: 06/21/16 14:45 Source: patient, RN notes reviewed Mode of arrival: ambulatory Limitations: no limitations - History of Present Illness Initial comments: 26-year-old female presents to the emergency department with a chief complaint of nausea vomiting. Patient states had nausea and vomiting since last night. Patient states he now is having some blood coming out of the vomit. Patient states it only looks like phlegm in his stomach acid but she is noticing the leg. Patient states that she has had some lightheadedness with this. Patient does admit to some abdominal cramping. Patient denies any lower abdominal pain any vaginal bleeding or discharge. Patient states she is currently 11 weeks . Patient states that she contacted her FORM TAMPER and she was sent here for additional care. Patient denies any fever chills with this. Patient denies any diarrhea. Patient states that no one else at home has similar symptoms. Patient denies any recent fever, chills, shortness of breath, chest pain, back pain, numbness or tingling, dysuria or hematuria, constipation or diarrhea, headaches or visual changes, or any other current symptoms. - Related Data Home Medications Medication Instructions Recorded Confirmed Pnv with Ca,No.72/Iron/FA 1 tab PO HS 05/10/16 06/21/16 [ Plus Tablet] Progesterone,Micronized 200 mg PO HS 05/10/16 06/21/16 [Progesterone] Doxylamine Succinate [Unisom] 25 mg PO HS 06/21/16 06/21/16 Allergies Allergy/AdvReac Type Severity Reaction Status Date / Time adhesive Allergy Rash/Hives Verified 06/21/16 14:52 latex Allergy Rash/Hives Verified 06/21/16 14:52 codeine AdvReac Nausea & Verified 06/21/16 14:52 Vomiting metronidazole [From Flagyl] AdvReac Nausea & Verified 06/21/16 14:52 Vomiting Review of Systems ROS Statement: Those systems with pertinent positive or pertinent negative responses have been documented in the HPI. ROS Other: All systems not noted in ROS Statement are negative. Past Medical History Past Medical History: Hypertension Additional Past Medical History / Comment(s): Back pain History of Any Multi-Drug Resistant Organisms: None Reported Past Surgical History: Ear Surgery Additional Past Surgical History / Comment(s): laproscopy for ovarian cyst removal, D&C, RIGHT EAR X4 Past Anesthesia/Blood Transfusion Reactions: Motion Sickness, Postoperative Nausea & Vomiting (PONV) Past Psychological History: Depression Smoking Status: Former smoker Past Alcohol Use History: None Reported Additional Past Alcohol Use History / Comment(s): QUIT SMOKING IN 2014 STARTED SMOKING AT AGE 18/ SMOKED 1/2 PPD OR LESS Past Drug Use History: None Reported - Past Family History FATHER Family Medical History: Cancer General Exam - General Exam Comments Initial Comments: General: The patient is awake and alert, in no distress, and does not appear acutely ill. Eye: Pupils are equal, round. Ears, nose, mouth and throat: There are moist mucous membranes and no oral lesions. Neck: The neck is supple, there is no tenderness. Cardiovascular: There is a regular rate and rhythm. No murmur, rub or gallop is appreciated. Respiratory: Lungs are clear to auscultation, respirations are non-labored, breath sounds are equal. No wheezes, stridor, rales, or rhonchi. Gastrointestinal: Soft, non-distended, non-tender abdomen without masses or organomegaly noted. There is no rebound or guarding present. No CVA tenderness. Bowel sounds are unremarkable. Back: There is no tenderness to palpation in the midline. There is no obvious deformity. No rashes noted. Musculoskeletal: Normal ROM, no tenderness, There is no pedal edema. There is no calf tenderness or swelling. Sensation intact. Pulses equal bilaterally 2+. Neurological: CN II-XII intact, There are no obvious motor or sensory deficits. Coordination appears grossly intact. Speech is normal. Skin: Skin is warm and dry and no rashes or lesions are noted. Psychiatric: Cooperative, appropriate mood & affect, normal judgment. Limitations: no limitations Course Vital Signs 06/21/16 12:25 Temperature 98 F Pulse Rate 84 Respiratory 20 Rate Blood Pressure 123/82 O2 Sat by Pulse 100 Oximetry Medical Decision Making - Medical Decision Making 26-year-old female presents emergency Department chief complaint of nausea and vomiting with abdominal cramping and . At this patient was assessed she states that she is feeling better. Blood work does show some dehydration she did receive a liter of fluids and the patient states her symptoms have improved. At this time we did discuss that hemoglobin is stable we have not seen any bloody vomit here but did appear to be streaks of blood when discussing it with the patient. At this time we will discharge home. We discussed follow-up and return parameters. We discussed all the patient's questions. She stated that she understood she has been given the plan. She will be discharged. - Lab Data Result diagrams: 06/21/16 15:33 06/21/16 15:33 Lab Results 06/21/16 06/21/16 06/21/16 Range/Units 15:33 15:33 15:45 WBC 8.1 (3.8-10.6) k/uL RBC 3.99 (3.80-5.40) m/uL Hgb 13.5 (11.4-16.0) gm/dL Hct 38.7 (34.0-46.0) % MCV 97.0 (80.0-100.0) fL MCH 33.8 (25.0-35.0) pg MCHC 34.8 (31.0-37.0) g/dL RDW 13.4 (11.5-15.5) % Plt Count 299 (150-450) k/uL Neutrophils % 69 % Lymphocytes % 24 % Monocytes % 4 % Eosinophils % 1 % Basophils % 0 % Neutrophils # 5.5 (1.3-7.7) k/uL Lymphocytes # 2.0 (1.0-4.8) k/uL Monocytes # 0.3 (0-1.0) k/uL Eosinophils # 0.1 (0-0.7) k/uL Basophils # 0.0 (0-0.2) k/uL Sodium 140 (137-145) mmol/L Potassium 4.0 (3.5-5.1) mmol/L Chloride 106 (98-107) mmol/L Carbon Dioxide 19 L (22-30) mmol/L Anion Gap 15 mmol/L BUN 8 (7-17) mg/dL Creatinine 0.58 (0.52-1.04) mg/dL Est GFR (MDRD) Af Amer >60 (>60 ml/min/1.73 sqM) Est GFR (MDRD) Non-Af >60 (>60 ml/min/1.73 sqM) Glucose 81 (74-99) mg/dL Calcium 9.4 (8.4-10.2) mg/dL Total Bilirubin 0.8 (0.2-1.3) mg/dL AST 23 (14-36) U/L ALT 29 (9-52) U/L Alkaline Phosphatase 77 (38-126) U/L Total Protein 7.8 (6.3-8.2) g/dL Albumin 4.4 (3.5-5.0) g/dL Amylase 44 (30-110) U/L Lipase 33 (23-300) U/L Urine Color Yellow Urine Appearance Cloudy H (Clear) Urine pH 5.5 (5.0-8.0) Ur Specific [place] 1.022 (1.001-1.035) Urine Protein Trace H (Negative) Urine Glucose (UA) Negative (Negative) Urine Ketones 3+ H (Negative) Urine Blood Negative (Negative) Urine Nitrate Negative (Negative) Urine Bilirubin Negative (Negative) Urine Urobilinogen <2.0 (<2.0) mg/dL Ur Leukocyte Esterase Negative (Negative) Urine RBC 4 (0-5) /hpf Urine WBC 2 (0-5) /hpf Ur Squamous Epith Cells 22 H (0-4) /hpf Urine Bacteria Rare H (None) /hpf Hyaline Casts 1 (0-2) /lpf Urine Mucus Few H (None) /hpf - Radiology Data Interpreted by me: Previous ultrasounds here in the emergency department to show a confirmed IUP Disposition Clinical Impression: Nausea and vomiting in Disposition: HOME SELF-CARE Condition: Stable Instructions: Nausea and Vomiting in (ED) Additional Instructions: Please use medication as discussed. Please follow up with family doctor if symptoms have not improved over the next two days. Please return to the emergency room if your symptoms increase or worsen or for any other concerns. Referrals: Asael Cheema MD [Primary Care Provider] - 1-2 days Time of Disposition: 16:37
[2016-06-21 16:05] LABS: Appearance,Urine Cloudy (Clear); Bacteria,Urine Rare /hpf; Bilirubin,Urine Negative (Negative); Glucose,Urine (UA) Negative (Negative); Ketones,Urine 3+ (Negative); Leukocyte Esterase,Urine Negative (Negative); Mucus,Urine Few /hpf; Nitrite,Urine Negative (Negative); PH, Urine 5.5 (5.0-8.0); Particle Count 8139; Protein,Urine Trace (Negative); RBC,Urine 4 /hpf (0-5); Specific Gravity,Urine 1.022 (1.001-1.035); Squamous Epithelial Cell,Urine 22 /hpf (0-4); UA Billing (MACRO vs. MICRO) MICRO; Urobilinogen,Urine <2.0 mg/dL (<2.0); WBC,Urine 2 /hpf (0-5)
[2016-06-21 16:12] LABS: Basophils % (A) 0 %; CH 34.1; CHCM 35.3; Eosinophils # (A) 0.1 k/uL (0-0.7); Eosinophils % (A) 1 %; HCT 38.7 % (34.0-46.0); HDW 2.75; HGB 13.5 gm/dL (11.4-16.0); Luc # (Auto) 0.11; Luc % (Auto) 1; Lymphocytes % (A) 24 %; MCH 33.8 pg (25.0-35.0); MCHC 34.8 g/dL (31.0-37.0); Mean Platelet Volume 7.8; Monocytes # (A) 0.3 k/uL (0-1.0); Monocytes % (A) 4 %; Neutrophils # (A) 5.5 k/uL (1.3-7.7); Neutrophils % (A) 69 %; RBC 3.99 m/uL (3.80-5.40); RDW 13.4 % (11.5-15.5); WBC 8.1 k/uL (3.8-10.6); WBC (Perox) 7.91
[2016-06-21 16:20] LABS: ALT 29 U/L (9-52); AST 23 U/L (14-36); Alkaline Phosphatase 77 U/L (38-126); Amylase 44 U/L (30-110); Anion Gap 15 mmol/L; Blood Urea Nitrogen 8 mg/dL (7-17); Calcium 9.4 mg/dL (8.4-10.2); Carbon Dioxide 19 mmol/L (22-30); Chloride 106 mmol/L (98-107); Glucose 81 mg/dL (74-99); Non-African American GFR(MDRD) >60 (>60 ml/min/1.73 sqM); Sodium 140 mmol/L (137-145); Total Bilirubin 0.8 mg/dL (0.2-1.3); Total Protein 7.8 g/dL (6.3-8.2)
[2016-06-21 16:49] VITALS: BP 137/67; PULSE 82; RESP 16; TEMP 97.9
== END 2016-06-21 16:49 | disposition home or self-care (01) ==
LOC: EC 12:03
DX: O21.0 Mild hyperemesis gravidarum (principal); Z3A.11 11 weeks gestation of pregnancy; E86.0 Dehydration; Z91.040 Latex allergy status; Z88.8 Allergy status to other drugs, medicaments and biological substances; Z91.048 Other nonmedicinal substance allergy status; Z87.891 Personal history of nicotine dependence
CPT/HCPCS: 36415; 80053; 82150; 83690; 85025; 81001; 87040; 87086; 96374; 96375; 96361; 99284; J2765

== ENCOUNTER → 2016-06-26 | Outpatient (CLI) | payer OTHER ==
--- NOTE | 2016-06-26 13:50 | US ---
EXAMINATION TYPE: US OB <= 14 wk fetus DATE OF EXAM: 06/26/2016 12:45 PM COMPARISON: US on PACS CLINICAL HISTORY: Absent Heart tones O76.. EXAM PERFORMED: Transabdominal (TA) EXAM MEASUREMENTS: GESTATIONAL AGE / DATING Physician Established: (11 weeks/0 days) EDC: 01/15/2017 Dates by LMP: (12 weeks/3 days) EDC: 01/05/2017 Dates by First Scan: (11 weeks/0 days) EDC: 01/15/2017 Dates by Current Scan for: (9 weeks/3 days) EDC: 01/26/2017 MATERNAL ANATOMY Uterus: 12.1 x 5.1 x 4.6 cm Right Ovary: 2.3 x 2.1 x 1.5 cm Left Ovary: 2.5 x 2.2 x 1.4 cm Post CDS / Adnexa: wnl Presence of free fluid: no Presence of corpus luteal cyst: no Presence of subchorionic bleed: no GESTATION / SURVEY CRL: 2.6 cm (9 weeks/3 days) Yolk Sac (normal less than 6mm): not seen Heart Rate: 0 bpm Rhythm: none IUP: No heart tones identified. Date of LMP: 03/31/2016 Beta HcG (if available): IMPRESSION: 1. Findings suggest a 9 week 3 day gestation. However, no heart tones are identified.
== END ==
LOC: RADUSWWP 11:55
PROVIDERS: ATTEND Obstetrics & Gynecology
DX: O76 Abnormality in fetal heart rate and rhythm complicating labor and delivery (principal); Z3A.09 9 weeks gestation of pregnancy
CPT/HCPCS: 76801

== ENCOUNTER 2016-06-28 11:22 | Day surgery (SDC) | payer OTHER ==
[2016-06-27 08:52] VITALS: BMI 37.5
--- NOTE | 2016-06-28 08:47 | P.HPOB ---
History of Present Illness H&P Date: 06/28/16 Chief Complaint: missed 26 year old presents for suction D&C for missed . She had an US on 06-26 that showed a 9 week fetus with no heart tones. Review of Systems All systems: negative Constitutional: Denies chills, Denies fever Eyes: denies blurred vision, denies pain Ears, nose, mouth and throat: Denies headache, Denies sore throat Cardiovascular: Denies chest pain, Denies shortness of breath Respiratory: Denies cough Gastrointestinal: Denies abdominal pain, Denies diarrhea, Denies nausea, Denies vomiting Genitourinary: Denies dysuria, Denies hematuria Musculoskeletal: Denies myalgias Integumentary: Denies pruritus, Denies rash Neurological: Denies numbness, Denies weakness Psychiatric: Denies anxiety, Denies depression Endocrine: Denies fatigue, Denies weight change Past Medical History Past Medical History: Hypertension Additional Past Medical History / Comment(s): Back pain,miscarriage x3 History of Any Multi-Drug Resistant Organisms: None Reported Past Surgical History: Ear Surgery Additional Past Surgical History / Comment(s): laparoscopy for ovarian cyst removal, D&C x2, RIGHT EAR X4 Past Anesthesia/Blood Transfusion Reactions: Motion Sickness, Postoperative Nausea & Vomiting (PONV) Additional Past Anesthesia/Blood Transfusion Reaction / Comment(s): no hx blood transfusion Past Psychological History: Depression Smoking Status: Former smoker Past Alcohol Use History: None Reported Additional Past Alcohol Use History / Comment(s): QUIT SMOKING IN 2014 STARTED SMOKING AT AGE 18/ SMOKED 1/2 PPD OR LESS Past Drug Use History: None Reported - Past Family History Mother Family Medical History: No Reported History FATHER Family Medical History: Cancer Medications and Allergies Home Medications Medication Instructions Recorded Confirmed Type Pnv with Ca,No.72/Iron/FA 1 tab PO HS 05/10/16 06/27/16 History [ Plus Tablet] Allergies Allergy/AdvReac Type Severity Reaction Status Date / Time adhesive Allergy Rash/Hives Verified 06/27/16 08:46 latex Allergy Rash/Hives Verified 06/27/16 08:46 codeine AdvReac Nausea & Verified 06/27/16 08:46 Vomiting metronidazole [From Flagyl] AdvReac Nausea & Verified 06/27/16 08:46 Vomiting Exam Osteopathic Statement: *. No significant issues noted on an osteopathic structural exam other than those noted in the History and Physical/Consult. Heart: RRR Lungs: CTAB Abdomen: soft, nontender Extremeties: neg maximo's Assessment and Plan (1) Missed Status: Acute Plan: 1. suction D&C
[~2016-06-28 11:22] MED LIST: Pre Op ABX Message 1 EACH MISC MISCELLANE ONE
[2016-06-28] MEDS ORDERED: SCOPOLAMINE 1.5MG/72HR PATCH TRANSDERM ONE (11:51)
[2016-06-28] MEDS ORDERED: LIDOCAINE 1% 20 ML VIAL (10MG/ML) FOR IV START INTRADERMA ONE (11:51)
[2016-06-28] MEDS ORDERED: LACTATED RINGERS 1,000 ML IV ONE (11:53)
[2016-06-28] MEDS ORDERED: DEXAMETHASONE SOD PHOS (MDV) 100 MG/10 ML VIAL IV ONE (11:54)
[2016-06-28] MEDS ORDERED: ONDANSETRON 4 MG/2 ML VIAL IVP ONE (11:54)
[2016-06-28] MEDS ORDERED: MIDAZOLAM 2 MG/2 ML VIAL ONE (12:38)
[2016-06-28] MEDS ORDERED: LIDOCAINE 1% INJ 10MG/ML (20 ML MDV) ONE (12:38)
[2016-06-28] MEDS ORDERED: SUCCINYLCHOLINE CHLORIDE 100 MG/5 ML SYR IV ONE (12:38)
[2016-06-28] MEDS ORDERED: fentaNYL (PF) 50 MCG/ML 2 ML AMP ONE (12:38)
[2016-06-28] MEDS ORDERED: PROPOFOL 10 MG/ML 20 ML VIAL IV ONE (12:38)
--- NOTE | 2016-06-28 13:00 | P.OP ---
Date of Procedure: 06/28/16 Preoperative Diagnosis: missed Postoperative Diagnosis: missed Procedure(s) Performed: Suction D&C Anesthesia: ANAYELI Surgeon: Peggy Serna Estimated Blood Loss (ml): 50 IV fluids (ml): 500 Urine output (ml): 3 Pathology: other (Uterine contents) Condition: stable Disposition: PACU Description of Procedure: Patient is taken the operating room where general anesthesia was obtained without difficulty. She is prepped and draped in normal sterile fashion dorsal lithotomy position, legs placed in candycane stirrups. Bladder was drained of all urine. Weighted speculum place in vagina the anterior lip the cervix was grasped with a single-tooth tenaculum. The cervix was dilated to #8 Hegar dilator. A #8 curved suction curet was introduced into the uterus and hydrodissection. Several passes were made and tissue and blood was removed. Sharp curet was gently used to ensure all tissue and blood had been removed. A few more passes of the suction curet confirmed this. Allis was removed from the vagina. Patient tolerated the procedure well, sponge and instrument counts were correct 2. She was taken to recovery room in stable condition.
[2016-06-28 13:35] VITALS: TEMP 97
[2016-06-28 14:19] VITALS: RESP 16
[2016-06-28] MEDS ORDERED: HYDROcodone/APAP 5-325MG 1 EACH TAB PO ONE (14:27)
[2016-06-28 14:45] VITALS: PULSE 58
[2016-06-28 15:00] VITALS: BP 110/68
[2016-07-26 12:03] LABS: Mis test requested (Non-blood) Chromosome Analysis
== END 2016-06-28 15:10 | disposition home or self-care (01) ==
LOC: OR 11:22
PROVIDERS: ATTEND Obstetrics & Gynecology
DX: O02.1 Missed abortion (principal); Z79.899 Other long term (current) drug therapy; Z91.040 Latex allergy status; Z91.048 Other nonmedicinal substance allergy status; Z87.891 Personal history of nicotine dependence
CPT/HCPCS: 88305; 59820; J2250; J2405; J2001; J3010; J1100; J0330; J2704; 88233; 88262

== ENCOUNTER → 2016-07-26 | Outpatient (CLI) | payer OTHER | LOC: RADECHMAIN 12:05 | PROVIDERS: ATTEND Internal Medicine | DX: R00.1 Bradycardia, unspecified (principal); R00.0 Tachycardia, unspecified | CPT/HCPCS: 93225; 93226 ==

== ENCOUNTER → 2017-02-16 | Outpatient (CLI) | payer OTHER ==
--- NOTE | 2017-02-16 11:23 | US ---
EXAMINATION TYPE: US kidneys/renal and bladder DATE OF EXAM: 02/16/2017 COMPARISON: CT 2012 CLINICAL HISTORY: Q51.4 UNICORNUATE UTERUS. EXAM MEASUREMENTS: Right Kidney: 9.9 x 4.6 x 4.5 cm Left Kidney: 10.2 x 4.2 x 3.9 cm Right Kidney: No hydronephrosis or masses seen Left Kidney: No hydronephrosis or masses seen Bladder: wnl Bilateral Jets seen: Yes There is no evidence for hydronephrosis at this point in time. No nephrolithiasis is seen. No yin s are identified. The urinary bladder is anechoic but limited by incomplete distention.. Bilateral ureteral jets are seen. IMPRESSION: No hydronephrosis or nephrolithiasis.
== END | disposition home or self-care (01) ==
LOC: RADUSWWP 10:20
PROVIDERS: ATTEND Pediatrics Neonatal-Perinatal Medicine
DX: Q51.4 Unicornate uterus (principal)
CPT/HCPCS: 76770

== ENCOUNTER → 2017-03-28 | Outpatient (CLI) | payer OTHER ==
--- NOTE | 2017-03-29 08:07 | USB ---
Reason for exam: clinical finding. History: Family history of breast cancer in grandmother. Indicated problem(s): palpable abnormality in the left breast. Physical Findings: Nurse Summary: 1cm movable nodule at 8:30, 1cm movable nodule at 2 o'clock (nurse dw). US Breast RT Right breast ultrasound includes all four quadrants, the retroareolar region and axilla. Finding demonstrates a 1.9 x 1.0 x 1.0cm hyperechoic lesion at 2 o'clock and a 0.7 x 0.2 x 0.4cm cystic lesion at 8 o'clock. These results were verbally communicated with the patient and result sheet given to the patient on 03/28/17. ASSESSMENT: Benign, BI-RAD 2 RECOMMENDATION: Routine screening mammogram of both breasts at age 42. Manage patient on a clinical basis.
== END | disposition home or self-care (01) ==
LOC: RADUSWWP 15:33
PROVIDERS: ATTEND Obstetrics & Gynecology
DX: N63.0 Unspecified lump in unspecified breast (principal)

== ENCOUNTER → 2017-06-11 | Outpatient (CLI) | payer OTHER | END | disposition home or self-care (01) | LOC: LABWHC1 10:51 | PROVIDERS: ATTEND Obstetrics & Gynecology | DX: Z34.80 Encounter for supervision of other normal pregnancy, unspecified trimester (principal); Z3A.00 Weeks of gestation of pregnancy not specified | CPT/HCPCS: 36415; 84702 ==

== ENCOUNTER → 2017-06-13 | Outpatient (CLI) | payer OTHER | END | disposition home or self-care (01) | LOC: LABWHC1 10:39 | PROVIDERS: ATTEND Obstetrics & Gynecology | DX: Z34.80 Encounter for supervision of other normal pregnancy, unspecified trimester (principal); Z3A.00 Weeks of gestation of pregnancy not specified | CPT/HCPCS: 36415; 84702 ==

== ENCOUNTER → 2017-06-15 | Outpatient (CLI) | payer OTHER | END | disposition home or self-care (01) | LOC: LABWHC1 12:43 | PROVIDERS: ATTEND Obstetrics & Gynecology | DX: Z34.80 Encounter for supervision of other normal pregnancy, unspecified trimester (principal); Z3A.00 Weeks of gestation of pregnancy not specified | CPT/HCPCS: 36415; 84702 ==

== ENCOUNTER 2017-07-03 15:30 | Emergency (ER) | payer OTHER ==
[2017-07-03 15:40] VITALS: TEMP 98.1
[2017-07-03 17:38] LABS: Appearance,Urine Cloudy (Clear); Bacteria,Urine Few /hpf; Bilirubin,Urine Negative (Negative); Blood,Urine Large (Negative); Budding Yeast,Urine Occasional /hpf; Color,Urine Light Yellow; Glucose,Urine (UA) Negative (Negative); Ketones,Urine Negative (Negative); Leukocyte Esterase,Urine Negative (Negative); Mucus,Urine Rare /hpf; PH, Urine 6.5 (5.0-8.0); Protein,Urine Negative (Negative); RBC,Urine 10 /hpf (0-5); Specific Gravity,Urine 1.002 (1.001-1.035); Squamous Epithelial Cell,Urine 1 /hpf (0-4); Urobilinogen,Urine <2.0 mg/dL (<2.0); WBC,Urine 3 /hpf (0-5)
[2017-07-03 17:48] LABS: Basophils % (A) 0 %; Eosinophils # (A) 0.1 k/uL (0-0.7); Eosinophils % (A) 1 %; HGB 13.3 gm/dL (11.4-16.0); Lymphocytes # (A) 2.3 k/uL (1.0-4.8); Lymphocytes % (A) 23 %; MCH 33.3 pg (25.0-35.0); MCHC 36.1 g/dL (31.0-37.0); MCV 92.2 fL (80.0-100.0); Monocytes # (A) 0.4 k/uL (0-1.0); Monocytes % (A) 4 %; Neutrophils # (A) 7.1 k/uL (1.3-7.7); Neutrophils % (A) 71 %; Platelet Count 273 k/uL (150-450); RBC 4.01 m/uL (3.80-5.40); RDW 12.5 % (11.5-15.5)
[2017-07-03 17:59] LABS: ALT 37 U/L (9-52); AST 18 U/L (14-36); Albumin 4.3 g/dL (3.5-5.0); Alkaline Phosphatase 64 U/L (38-126); Anion Gap 12 mmol/L; Blood Urea Nitrogen 6 mg/dL (7-17); Calcium 9.7 mg/dL (8.4-10.2); Carbon Dioxide 22 mmol/L (22-30); Chloride 109 mmol/L (98-107); Glucose 83 mg/dL (74-99); Potassium 3.6 mmol/L (3.5-5.1); Sodium 143 mmol/L (137-145); Total Bilirubin 0.7 mg/dL (0.2-1.3); Total Protein 7.1 g/dL (6.3-8.2)
--- NOTE | 2017-07-03 18:00 | ED ---
General Adult HPI - General Chief complaint: Vaginal Bleeding Stated complaint: vaginal bleeding/6wks preg Time Seen by Provider: 07/03/17 16:45 Source: patient Mode of arrival: ambulatory Limitations: no limitations - History of Present Illness Initial comments: 27-year-old female presents for vaginal bleeding since this morning. Patient describes the bleeding as spotting and denies having soaked through a pad. She states she is 6 weeks and has taken a test at home. Patient admits to abdominal cramping but denies any abdominal pain. 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 The furthest her has progressed is 11 weeks. She is a patient of Dr. Serna. Patient denies any pain with urination, but is on a cream for a yeast infection. Patient is in the room with her mother and another family member. At this time, patient does not want a pelvic exam. Patient denies any shortness of breath, chest pain, dizziness or lightheadedness. - Related Data Home Medications Medication Instructions Recorded Confirmed Pnv,Calcium 72/Iron/Folic Acid 1 tab PO HS 05/10/16 07/03/17 [ Plus Tablet] Doxylamine Succinate [Unisom] 25 mg PO HS 07/03/17 07/03/17 Progesterone, Micronized 200 mg PO 07/03/17 [Progesterone] Allergies Allergy/AdvReac Type Severity Reaction Status Date / Time adhesive Allergy Rash/Hives Verified 07/03/17 17:39 latex Allergy Rash/Hives Verified 07/03/17 17:39 codeine AdvReac Nausea & Verified 07/03/17 17:39 Vomiting metronidazole [From Flagyl] AdvReac Nausea & Verified 07/03/17 17:39 Vomiting Review of Systems ROS Statement: Those systems with pertinent positive or pertinent negative responses have been documented in the HPI. ROS Other: All systems not noted in ROS Statement are negative. Past Medical History Past Medical History: Hypertension Additional Past Medical History / Comment(s): Back pain,miscarriage x3 History of Any Multi-Drug Resistant Organisms: None Reported Past Surgical History: Ear Surgery Additional Past Surgical History / Comment(s): laparoscopy for ovarian cyst removal, D&C x2, RIGHT EAR X4 Past Anesthesia/Blood Transfusion Reactions: Motion Sickness, Postoperative Nausea & Vomiting (PONV) Additional Past Anesthesia/Blood Transfusion Reaction / Comment(s): no hx blood transfusion Past Psychological History: Depression Smoking Status: Former smoker Past Alcohol Use History: None Reported Past Drug Use History: None Reported - Past Family History Mother Family Medical History: No Reported History FATHER Family Medical History: Cancer General Exam Limitations: no limitations General appearance: alert, in no apparent distress Head exam: Present: atraumatic, normocephalic, normal inspection Eye exam: Present: PERRL, EOMI Respiratory exam: Present: normal lung sounds bilaterally. Absent: respiratory distress, wheezes, rales, rhonchi, stridor Cardiovascular Exam: Present: regular rate, normal rhythm, normal heart sounds. Absent: systolic murmur, diastolic murmur, rubs, gallop, clicks GI/Abdominal exam: Present: soft, normal bowel sounds. Absent: distended, tenderness, guarding, rebound, rigid Speculum exam: Present: other (Patient denied a speculum exam.) Course Vital Signs 07/03/17 15:37 Temperature 98.1 F Pulse Rate 70 Respiratory 20 Rate Blood Pressure 142/60 O2 Sat by Pulse 100 Oximetry Medical Decision Making - Medical Decision Making 27 year old female presents to the emergency department for vaginal bleeding. Patient is 6 weeks . Patient has had a history of 3 miscarriages in the past and has never made it past 11 weeks. Patient states she is spotting, not soaking a pad. Patient wishes not to have a pelvic exam done at this time because she does not want anything else introduced. I did explain to her doing a pelvic would help to see if her cervix was open and that it is not contraindicated. Her transvaginal ultrasound did show a uterine however it is too early to see her heart rate. Therefore she will follow-up with a repeat beta hCG in 2 days. Patient will also contact Dr. Serna and see if she needs an earlier appointment. Other labs are within normal limits, including a CBC, CMP, and urine. Spoke with patient about the possibility of a miscarriage and to watch for increased bleeding. Given precautions to return if she is soaking through a pad for multiple hours in a row, feels dizzy or lightheaded, or has severe pain. She was advised not to have sex, lift heavy objects, or take ibuprofen. Patient will follow up with Dr. Serna as soon as possible. She will also repeat her beta hCG. - Lab Data Result diagrams: 07/03/17 17:34 07/03/17 17:34 Lab Results 07/03/17 07/03/17 07/03/17 Range/Units 17:23 17:34 17:34 WBC (3.8-10.6) k/uL RBC (3.80-5.40) m/uL Hgb (11.4-16.0) gm/dL Hct (34.0-46.0) % MCV (80.0-100.0) fL MCH (25.0-35.0) pg MCHC (31.0-37.0) g/dL RDW (11.5-15.5) % Plt Count (150-450) k/uL Neutrophils % % Lymphocytes % % Monocytes % % Eosinophils % % Basophils % % Neutrophils # (1.3-7.7) k/uL Lymphocytes # (1.0-4.8) k/uL Monocytes # (0-1.0) k/uL Eosinophils # (0-0.7) k/uL Basophils # (0-0.2) k/uL Sodium 143 (137-145) mmol/L Potassium 3.6 (3.5-5.1) mmol/L Chloride 109 H (98-107) mmol/L Carbon Dioxide 22 (22-30) mmol/L Anion Gap 12 mmol/L BUN 6 L (7-17) mg/dL Creatinine 0.60 (0.52-1.04) mg/dL Est GFR (CKD-EPI)AfAm >90 (>60 ml/min/1.73 sqM) Est GFR (CKD-EPI)NonAf >90 (>60 ml/min/1.73 sqM) Glucose 83 (74-99) mg/dL Calcium 9.7 (8.4-10.2) mg/dL Total Bilirubin 0.7 (0.2-1.3) mg/dL AST 18 (14-36) U/L ALT 37 (9-52) U/L Alkaline Phosphatase 64 (38-126) U/L Total Protein 7.1 (6.3-8.2) g/dL Albumin 4.3 (3.5-5.0) g/dL HCG, Quant 536.1 mIU/mL Urine Color Light Yellow Urine Appearance Cloudy H (Clear) Urine pH 6.5 (5.0-8.0) Ur Specific [place] 1.002 (1.001-1.035) Urine Protein Negative (Negative) Urine Glucose (UA) Negative (Negative) Urine Ketones Negative (Negative) Urine Blood Large H (Negative) Urine Nitrite Negative (Negative) Urine Bilirubin Negative (Negative) Urine Urobilinogen <2.0 (<2.0) mg/dL Ur Leukocyte Esterase Negative (Negative) Urine RBC 10 H (0-5) /hpf Urine WBC 3 (0-5) /hpf Ur Squamous Epith Cells 1 (0-4) /hpf Urine Bacteria Few H (None) /hpf Urine Mucus Rare H (None) /hpf Urine Yeast (Budding) Occasional H (None) /hpf Blood Type A Positive Blood Type Recheck No 07/03/17 Range/Units 17:34 WBC 10.0 (3.8-10.6) k/uL RBC 4.01 (3.80-5.40) m/uL Hgb 13.3 (11.4-16.0) gm/dL Hct 37.0 (34.0-46.0) % MCV 92.2 (80.0-100.0) fL MCH 33.3 (25.0-35.0) pg MCHC 36.1 (31.0-37.0) g/dL RDW 12.5 (11.5-15.5) % Plt Count 273 (150-450) k/uL Neutrophils % 71 % Lymphocytes % 23 % Monocytes % 4 % Eosinophils % 1 % Basophils % 0 % Neutrophils # 7.1 (1.3-7.7) k/uL Lymphocytes # 2.3 (1.0-4.8) k/uL Monocytes # 0.4 (0-1.0) k/uL Eosinophils # 0.1 (0-0.7) k/uL Basophils # 0.0 (0-0.2) k/uL Sodium (137-145) mmol/L Potassium (3.5-5.1) mmol/L Chloride (98-107) mmol/L Carbon Dioxide (22-30) mmol/L Anion Gap mmol/L BUN (7-17) mg/dL Creatinine (0.52-1.04) mg/dL Est GFR (CKD-EPI)AfAm (>60 ml/min/1.73 sqM) Est GFR (CKD-EPI)NonAf (>60 ml/min/1.73 sqM) Glucose (74-99) mg/dL Calcium (8.4-10.2) mg/dL Total Bilirubin (0.2-1.3) mg/dL AST (14-36) U/L ALT (9-52) U/L Alkaline Phosphatase (38-126) U/L Total Protein (6.3-8.2) g/dL Albumin (3.5-5.0) g/dL HCG, Quant mIU/mL Urine Color Urine Appearance (Clear) Urine pH (5.0-8.0) Ur Specific [place] (1.001-1.035) Urine Protein (Negative) Urine Glucose (UA) (Negative) Urine Ketones (Negative) Urine Blood (Negative) Urine Nitrite (Negative) Urine Bilirubin (Negative) Urine Urobilinogen (<2.0) mg/dL Ur Leukocyte Esterase (Negative) Urine RBC (0-5) /hpf Urine WBC (0-5) /hpf Ur Squamous Epith Cells (0-4) /hpf Urine Bacteria (None) /hpf Urine Mucus (None) /hpf Urine Yeast (Budding) (None) /hpf Blood Type Blood Type Recheck Disposition Clinical Impression: Vaginal bleeding, Threatened miscarriage Disposition: HOME SELF-CARE Condition: Good Additional Instructions: Please return to the emergency department if you are bleeding through several pads, feel lightheaded or dizzy, or have shortness of breath. Please repeat beta hCG in 2 days. Please follow-up with Dr. Serna as necessary. Referrals: Asael Cheema MD [Primary Care Provider] - 1-2 days Decision Time: 18:46
--- NOTE | 2017-07-03 18:05 | US ---
EXAMINATION TYPE: US OB <= 14 wk fetus DATE OF EXAM: 07/03/2017 COMPARISON: NONE CLINICAL HISTORY: pain; vaginal bleeding today; patient stated had TVUS yesterday at clinic : ; HTN EXAM PERFORMED: Transvaginal (TV) and Transabdominal (TA) EXAM MEASUREMENTS: GESTATIONAL AGE / DATING Physician Established: Not yet established Dates by LMP: (6 weeks/6 days) EDC: 02/20/2018 Dates by First Scan: No previous US here. This is first scan Dates by Current Scan for: (6 weeks/1 day) EDC: 02/25/2018 MATERNAL ANATOMY Uterus: 7.4 x 3.5 x 3.7cm; Right Ovary: 2.9 x 1.6x 2.1cm Left Ovary: 2.4 x 1.4 x 1.6cm Post CDS / Adnexa: wnl Presence of free fluid: no Presence of corpus luteal cyst: in right ovary =1.6 x 1.3 x 1.6cm Presence of subchorionic bleed: yes, superior to gestational sac = 0.5 x 0.7 x 0.6cm GESTATION / SURVEY CRL: 0.5cm (6 weeks/1 day) Yolk Sac (normal less than 6mm): 3.4mm Heart Rate: 79 bpm for early and may be motion artifact for very early assessment; no color flow seen in pole with color flow Rhythm: irregular IUP: single IUP seen in upper uterus at start of exam, then gestational sac contents appeared move t o mid uterus at exam's end. Date of LMP: 05/16/2017 Beta HcG (if available): NA IMPRESSION: 1. SINGLE IUP IN UTERINE CORPUS AT EXAM'S END MEASURING (6 WEEKS/1 DAY), EDC: 02/25/2018; HR NOT WELL DETECTED FOR NORMAL RHYTHM AND MAY BE VERY EARLY MEASURE. 2. SMALL SUBCHORIONIC HEMORRHAGE NOTED.
[2017-07-03 18:16] LABS: HCG,Quantitative Serum 536.1 mIU/mL
[2017-07-03 19:15] VITALS: BP 119/63; PULSE 66; RESP 18
== END 2017-07-03 19:15 | disposition home or self-care (01) ==
LOC: EC 15:30
DX: O20.0 Threatened abortion (principal); Z87.891 Personal history of nicotine dependence; Z3A.01 Less than 8 weeks gestation of pregnancy; Z79.899 Other long term (current) drug therapy; Z79.890 Hormone replacement therapy; Z91.048 Other nonmedicinal substance allergy status; Z91.040 Latex allergy status; Z88.5 Allergy status to narcotic agent; Z88.1 Allergy status to other antibiotic agents
CPT/HCPCS: 36415; 76801; 76817; 80053; 81001; 84702; 85025; 86900; 86901; 99284

== ENCOUNTER → 2017-07-05 | Outpatient (CLI) | payer OTHER | END | disposition home or self-care (01) | LOC: LABWHC1 10:47 | PROVIDERS: ATTEND Obstetrics & Gynecology | DX: O20.0 Threatened abortion (principal) | CPT/HCPCS: 36415; 84702 ==

== ENCOUNTER → 2017-07-24 | Outpatient (CLI) | payer OTHER | END | disposition home or self-care (01) | LOC: LABWHC1 13:43 | PROVIDERS: ATTEND Obstetrics & Gynecology | DX: O03.9 Complete or unspecified spontaneous abortion without complication (principal) | CPT/HCPCS: 36415; 84702 ==

== ENCOUNTER 2017-09-21 10:55 | Day surgery (SDC) | payer OTHER ==
[2017-09-20 09:11] VITALS: BMI 37.8
[~2017-09-21 10:55] MED LIST changes: +LACTATED RINGERS 1,000 ML IV SCH; -Pre Op ABX Message 1 EACH MISC MISCELLANE ONE
[2017-09-21 11:17] VITALS: RESP 16; TEMP 97.4
[2017-09-21] MEDS ORDERED: LIDOCAINE 1% 20 ML VIAL (10MG/ML) FOR IV START INTRADERMA ONE (11:22)
[2017-09-21] MEDS ORDERED: fentaNYL (PF) 50 MCG/ML 2 ML AMP ONE (11:59)
[2017-09-21] MEDS ORDERED: PROPOFOL 10 MG/ML 20 ML VIAL IV ONE (11:59)
--- NOTE | 2017-09-21 12:15 | P.PCN ---
Date of Procedure: 09/21/17 Procedure(s) Performed: BRIEF HISTORY: Patient is a 27-year-old pleasant white female, scheduled for an elective colonoscopy as a part of evaluation of history of colon polyps and intermittent rectal bleeding for the last 6 months duration. She has bowel movements once or twice a week and occasional diarrhea. PROCEDURE PERFORMED: Colonoscopy with snare polypectomy. PREOPERATIVE DIAGNOSIS:Rectal bleeding and diarrhea of 6 months duration]. IV sedation per Anesthesia. PROCEDURE: After informed consent was obtained, the patient, was brought into the endoscopy unit. IV sedation was administered by Anesthesia under continuous monitoring. Digital rectal examination was normal. Initially the Olympus CF- 160 flexible video colonoscope was then inserted in the rectum, gradually advanced into the cecum without any difficulty. Careful examination was performed as the scope was gradually being withdrawn. Ileocecal valve and the appendiceal orifice were visualized and appeared normal. Prep was excellent. Mucosa of the cecum, ascending colon, transverse colon, descending colon, sigmoid colon, and rectum appeared normal. The proximal rectum there was a 7 mm polyp that was removed by snare polypectomy. Retroflexion was performed in the rectum an small internal hemorrhoids were seen. The patient tolerated the procedure well. IMPRESSION: 7 mm proximal rectal polyp status post polypectomy Small internal hemorrhoids No evidence of colitis RECOMMENDATIONS: Findings of this examination were discussed with the patient as well as her family. She will follow with the biopsy results. She was advised to be a high-fiber diet and take fiber supplements on a regular basis..
[2017-09-21 12:55] VITALS: BP 100/62; PULSE 70
== END 2017-09-21 12:55 | disposition home or self-care (01) ==
LOC: ORWHC2ENDO 10:55
PROVIDERS: ATTEND Internal Medicine Gastroenterology
DX: K62.1 Rectal polyp (principal); K62.5 Hemorrhage of anus and rectum; I10 Essential (primary) hypertension; K64.8 Other hemorrhoids; Z91.040 Latex allergy status; Z88.5 Allergy status to narcotic agent; Z88.1 Allergy status to other antibiotic agents; Z91.048 Other nonmedicinal substance allergy status; F17.200 Nicotine dependence, unspecified, uncomplicated; Z79.3 Long term (current) use of hormonal contraceptives; Z79.899 Other long term (current) drug therapy
CPT/HCPCS: 81025; 88305; 45385; J3010; J2704

== ENCOUNTER 2018-03-31 12:16 | Emergency (ER) | payer OTHER ==
[2018-03-31 12:29] VITALS: TEMP 99.1
[2018-03-31 13:26] LABS: Amorphous Sediment,Urine Rare /hpf; Appearance,Urine Clear (Clear); Bacteria,Urine Rare /hpf; Bilirubin,Urine Negative (Negative); Blood,Urine Trace (Negative); Color,Urine Yellow; Glucose,Urine (UA) Negative (Negative); Ketones,Urine Negative (Negative); Leukocyte Esterase,Urine Negative (Negative); Mucus,Urine Occasional /hpf; Nitrite,Urine Negative (Negative); Protein,Urine Trace (Negative); RBC,Urine 6 /hpf (0-5); Specific Gravity,Urine 1.024 (1.001-1.035); Squamous Epithelial Cell,Urine 7 /hpf (0-4); WBC,Urine 2 /hpf (0-5)
[2018-03-31 13:28] LABS: Basophils % (A) 0 %; Eosinophils # (A) 0.1 k/uL (0-0.7); Eosinophils % (A) 1 %; HGB 13.2 gm/dL (11.4-16.0); Lymphocytes # (A) 1.6 k/uL (1.0-4.8); Lymphocytes % (A) 16 %; MCH 33.2 pg (25.0-35.0); MCHC 33.8 g/dL (31.0-37.0); MCV 98.1 fL (80.0-100.0); Mean Platelet Volume 6.4; Monocytes # (A) 0.4 k/uL (0-1.0); Monocytes % (A) 4 %; Neutrophils # (A) 7.8 k/uL (1.3-7.7); Neutrophils % (A) 78 %; Platelet Count 269 k/uL (150-450); RBC 3.97 m/uL (3.80-5.40); RDW 13.1 % (11.5-15.5)
[2018-03-31 13:29] LABS: Partial Thromboplastin Time 23.6 sec (22.0-30.0); Prothrombin Time 10.2 sec (9.0-12.0)
[2018-03-31 13:30] LABS: ALT 20 U/L (9-52); AST 17 U/L (14-36); Albumin 3.9 g/dL (3.5-5.0); Alkaline Phosphatase 78 U/L (38-126); Anion Gap 8 mmol/L; Blood Urea Nitrogen 10 mg/dL (7-17); Calcium 9.1 mg/dL (8.4-10.2); Carbon Dioxide 23 mmol/L (22-30); Chloride 109 mmol/L (98-107); Glucose 87 mg/dL (74-99); Lipase 36 U/L (23-300); Potassium 4.2 mmol/L (3.5-5.1); Sodium 140 mmol/L (137-145); Total Bilirubin 0.9 mg/dL (0.2-1.3); Total Protein 6.7 g/dL (6.3-8.2)
--- NOTE | 2018-03-31 13:43 | ED ---
Abdominal Pain HPI - General Chief Complaint: Abdominal Pain Stated Complaint: Abd pain blood in stool Time Seen by Provider: 03/31/18 12:31 Source: patient Mode of arrival: ambulatory Limitations: no limitations - History of Present Illness Initial Comments: 28yo female With past medical history of chronic diarrhea, hemorrhoids, hypertension presenting today for cc of blood in stool. Patient states that for the past 2 days when she's had a bowel movement she has had bright red blood on the toilet paper well as the in the toilet, pt states she has chronic diarrhea-no changes in stool consistency. Pt states that she has had cramping abdominal pain in the lower abdomen, denies cramping in the pelvic region/ vaginal bleeding or discharge. Pt denies pt has difficulty describing the lower abdominal pain/cramping. Denies upper abdominal pain, nausea, vomiting, hematemesis, melena. 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 Pt denies fever, chills, vaginal bleeding, nausea, chest pain , shortness of breath. Remainder of ROS (-), patient denies any recent shortness of breath, back pain, abdominal pain, nausea or vomiting, numbness or tingling, dysuria or hematuria, constipation, headaches or visual changes, or any other complaints. Upon arrival pt VS stable, afebrile, BP within normal limits. Pt appears well, nontoxic. - Related Data Home Medications Medication Instructions Recorded Confirmed Etonogestrel [Nexplanon] 1 implant SQ [id number] 09/20/17 09/21/17 Phentermine HCl [Adipex-P] 37.5 mg PO QAM 09/20/17 09/21/17 Sertraline [Zoloft] 100 mg PO DAILY 09/20/17 09/21/17 Triamterene-Hctz 37.5-25Mg 1 tab PO DAILY 09/20/17 09/21/17 [Maxzide 37.5-25] busPIRone HCL [Buspar] 7.5 mg PO BID 09/20/17 09/21/17 traZODone HCL [Desyrel] 100 mg PO HS 09/20/17 09/21/17 Previous Rx's Medication Instructions Recorded Amoxic-Pot Clav 875-125Mg 1 tab PO Q12HR 10 Days #20 tablet 03/31/18 [Augmentin 875-125] Allergies Allergy/AdvReac Type Severity Reaction Status Date / Time adhesive Allergy Rash/Hives Verified 03/31/18 12:29 latex Allergy Rash/Hives Verified 03/31/18 12:29 codeine AdvReac Nausea & Verified 03/31/18 12:29 Vomiting metronidazole [From Flagyl] AdvReac Nausea & Verified 03/31/18 12:29 Vomiting Review of Systems ROS Statement: Those systems with pertinent positive or pertinent negative responses have been documented in the HPI. ROS Other: All systems not noted in ROS Statement are negative. Constitutional: Denies: fever, chills ENT: Denies: ear pain, throat pain Respiratory: Denies: cough, dyspnea, wheezes, hemoptysis, stridor Cardiovascular: Denies: chest pain, palpitations Gastrointestinal: Reports: abdominal pain, diarrhea, hematochezia. Denies: nausea, vomiting, constipation, hematemesis, melena Genitourinary: Denies: urgency, dysuria, frequency, hematuria Skin: Denies: rash, lesions Neurological: Denies: headache, weakness, numbness, paresthesias, confusion Past Medical History Past Medical History: Blood Disorder, Hypertension Additional Past Medical History / Comment(s): FREQUENT DIARRHEA AND BLOOD IN STOOL, MTHFR, HX Back pain, miscarriage x3 History of Any Multi-Drug Resistant Organisms: None Reported Past Surgical History: Breast Surgery, Ear Surgery Additional Past Surgical History / Comment(s): laparoscopy for ovarian cyst removal, D&C x3, RIGHT EAR X4 FOR REMOVAL OF BENIGN TUMOR, RT BREAST BENIGN CYST Past Anesthesia/Blood Transfusion Reactions: Motion Sickness, Postoperative Nausea & Vomiting (PONV) Additional Past Anesthesia/Blood Transfusion Reaction / Comment(s): no hx blood transfusion Past Psychological History: Anxiety, Depression Smoking Status: Current every day smoker Past Alcohol Use History: None Reported Past Drug Use History: Marijuana - Past Family History Mother Family Medical History: No Reported History FATHER Family Medical History: Cancer General Exam - General Exam Comments Initial Comments: General: The patient is awake and alert, in no distress, and does not appear acutely ill. Eye: Pupils are equal, round and reactive to light, extra-ocular movements are intact. No nystagmus. There is normal conjunctiva bilaterally. No signs of icterus. Ears, nose, mouth and throat: There are moist mucous membranes and no oral lesions. Neck: The neck is supple, there is no tenderness or JVD. Cardiovascular: There is a regular rate and rhythm. No murmur, rub or gallop is appreciated. Respiratory: Lungs are clear to auscultation, respirations are non-labored, breath sounds are equal. No wheezes, stridor, rales, or rhonchi. Gastrointestinal: No noted diaphoresis, jaundice, pallor, protecting postures or squirming. Symmetrical pigmentation of abdomen without signs of inflammation, scars. Striae present on abdomen. Umbilicus mildline, inverted without swelling. No dilated veins. Abdomen contour obese, no noted abdominal distention. No visible masses. No peristalsis, aortic pulsations, or ventral hernia. Bowel sounds audible in all 4 quadrants, unremarkable. No friction rubs or venous hums. No epigastic, hepatic or abdominal bruits. Tenderness to palpation of the lower abdomen, LLQ > RLQ. Liver edge, not palpable. Spleen edge, right and left kidney not palpable. Superior bladder margin non-tender. Special Testing: Negative [place], [place], [place], [place], cutaneous hyperesthesia. Iliopsoas and obturator tests negative bilaterally. Negative Heel Jar test/ micha sign. No CVA tenderness. Digital rectal exam, skin tag noted, one small external hemorrhoid palpated, non-thrombosed. No gross blood. Negative parnell turners or cullens sign Musculoskeletal: Normal ROM, no tenderness. Strength 5/5. Sensation intact. Radial pulses equal bilaterally 2+. Neurological: A&O x 3. CN II-XII intact, There are no obvious motor or sensory deficits. Coordination appears grossly intact. Speech is normal. Skin: Skin is warm and dry and no rashes or lesions are noted. Psychiatric: Cooperative, appropriate mood & affect, normal judgment. Limitations: no limitations Course Vital Signs 03/31/18 03/31/18 12:26 14:35 Temperature 99.1 F Pulse Rate 68 64 Respiratory 20 18 Rate Blood Pressure 127/78 120/84 O2 Sat by Pulse 98 97 Oximetry Medical Decision Making - Medical Decision Making Patient's vital signs stable, afebrile. Normotensive. Laboratory findings unremarkable, hemoglobin and hematocrit stable. No elevated white blood cell count. Abdominal exam revealed tenderness of the lower abdomen with left-sided greater than right, concerning for diverticular disease with complaints of bright red blood with BM. No protective postures or findings concerning for peritoneal irritation. Rectal exam performed no gross blood,: Negative. Small palpable external hemorrhoid. Skin tag noted. CT revealed diverticulosis, With area of diverticulitis. This is not complex. Patient appears well, nontoxic. No significant comorbidities. Pt will be started on augmentin given metronizazole ALLERGY. Findings discussed the patient, who verbalizes or standing. I discussed admission versus outpatient therapy, patient with psych outpatient therapy at this time I'm agreeable with this given patient hemodynamic stability, laboratory findings and lack of PMH. Case discussed with who agreed with impression and plan. Pt is stable for discharge with GI f/u as discussed. Pt is agreeable plan, return parameters discussed at length patient who verbalizes understanding. Patient discharged in stable condition with f/u with PCP and GI as discussed. - Lab Data Result diagrams: 03/31/18 13:05 03/31/18 13:05 Lab Results 03/31/18 03/31/18 03/31/18 Range/Units 12:40 12:52 12:52 WBC (3.8-10.6) k/uL RBC (3.80-5.40) m/uL Hgb (11.4-16.0) gm/dL Hct (34.0-46.0) % MCV (80.0-100.0) fL MCH (25.0-35.0) pg MCHC (31.0-37.0) g/dL RDW (11.5-15.5) % Plt Count (150-450) k/uL Neutrophils % % Lymphocytes % % Monocytes % % Eosinophils % % Basophils % % Neutrophils # (1.3-7.7) k/uL Lymphocytes # (1.0-4.8) k/uL Monocytes # (0-1.0) k/uL Eosinophils # (0-0.7) k/uL Basophils # (0-0.2) k/uL PT (9.0-12.0) sec INR (<1.2) APTT (22.0-30.0) sec Sodium (137-145) mmol/L Potassium (3.5-5.1) mmol/L Chloride (98-107) mmol/L Carbon Dioxide (22-30) mmol/L Anion Gap mmol/L BUN (7-17) mg/dL Creatinine (0.52-1.04) mg/dL Est GFR (CKD-EPI)AfAm (>60 ml/min/1.73 sqM) Est GFR (CKD-EPI)NonAf (>60 ml/min/1.73 sqM) Glucose (74-99) mg/dL Calcium (8.4-10.2) mg/dL Total Bilirubin (0.2-1.3) mg/dL AST (14-36) U/L ALT (9-52) U/L Alkaline Phosphatase (38-126) U/L Total Protein (6.3-8.2) g/dL Albumin (3.5-5.0) g/dL Lipase (23-300) U/L Urine Color Yellow Urine Appearance Clear (Clear) Urine pH 7.0 (5.0-8.0) Ur Specific [place] 1.024 (1.001-1.035) Urine Protein Trace H (Negative) Urine Glucose (UA) Negative (Negative) Urine Ketones Negative (Negative) Urine Blood Trace H (Negative) Urine Nitrite Negative (Negative) Urine Bilirubin Negative (Negative) Urine Urobilinogen 2.0 (<2.0) mg/dL Ur Leukocyte Esterase Negative (Negative) Urine RBC 6 H (0-5) /hpf Urine WBC 2 (0-5) /hpf Ur Squamous Epith Cells 7 H (0-4) /hpf Amorphous Sediment Rare H (None) /hpf Urine Bacteria Rare H (None) /hpf Urine Mucus Occasional H (None) /hpf Urine HCG, Qual Not Detected (Not Detectd) Stool Occult Blood Negative (Negative) 03/31/18 03/31/18 03/31/18 Range/Units 13:05 13:05 13:05 WBC 10.0 (3.8-10.6) k/uL RBC 3.97 (3.80-5.40) m/uL Hgb 13.2 (11.4-16.0) gm/dL Hct 39.0 (34.0-46.0) % MCV 98.1 (80.0-100.0) fL MCH 33.2 (25.0-35.0) pg MCHC 33.8 (31.0-37.0) g/dL RDW 13.1 (11.5-15.5) % Plt Count 269 (150-450) k/uL Neutrophils % 78 % Lymphocytes % 16 % Monocytes % 4 % Eosinophils % 1 % Basophils % 0 % Neutrophils # 7.8 H (1.3-7.7) k/uL Lymphocytes # 1.6 (1.0-4.8) k/uL Monocytes # 0.4 (0-1.0) k/uL Eosinophils # 0.1 (0-0.7) k/uL Basophils # 0.0 (0-0.2) k/uL PT 10.2 (9.0-12.0) sec INR 1.0 (<1.2) APTT 23.6 (22.0-30.0) sec Sodium 140 (137-145) mmol/L Potassium 4.2 (3.5-5.1) mmol/L Chloride 109 H (98-107) mmol/L Carbon Dioxide 23 (22-30) mmol/L Anion Gap 8 mmol/L BUN 10 (7-17) mg/dL Creatinine 0.69 (0.52-1.04) mg/dL Est GFR (CKD-EPI)AfAm >90 (>60 ml/min/1.73 sqM) Est GFR (CKD-EPI)NonAf >90 (>60 ml/min/1.73 sqM) Glucose 87 (74-99) mg/dL Calcium 9.1 (8.4-10.2) mg/dL Total Bilirubin 0.9 (0.2-1.3) mg/dL AST 17 (14-36) U/L ALT 20 (9-52) U/L Alkaline Phosphatase 78 (38-126) U/L Total Protein 6.7 (6.3-8.2) g/dL Albumin 3.9 (3.5-5.0) g/dL Lipase 36 (23-300) U/L Urine Color Urine Appearance (Clear) Urine pH (5.0-8.0) Ur Specific [place] (1.001-1.035) Urine Protein (Negative) Urine Glucose (UA) (Negative) Urine Ketones (Negative) Urine Blood (Negative) Urine Nitrite (Negative) Urine Bilirubin (Negative) Urine Urobilinogen (<2.0) mg/dL Ur Leukocyte Esterase (Negative) Urine RBC (0-5) /hpf Urine WBC (0-5) /hpf Ur Squamous Epith Cells (0-4) /hpf Amorphous Sediment (None) /hpf Urine Bacteria (None) /hpf Urine Mucus (None) /hpf Urine HCG, Qual (Not Detectd) Stool Occult Blood (Negative) Disposition Clinical Impression: Diverticulitis, Diverticulosis Disposition: HOME SELF-CARE Condition: Good Instructions: Diverticulitis (ED), Diverticulosis (ED) Additional Instructions: Please use medication as discussed. Please follow-up with family doctor in the next 2 days, please follow-up with Dr. Carmichael in next 2-3 days. Please return to emergency room if the symptoms increase or worsen or for any other concerns. Prescriptions: Amoxic-Pot Clav 875-125Mg [Augmentin 875-125] 1 tab PO Q12HR 10 Days #20 tablet Is patient prescribed a controlled substance at d/c from ED?: No Referrals: Asael Cheema MD [Primary Care Provider] - 1-2 days Madelin Carmichael MD [STAFF PHYSICIAN] - 1-2 days Time of Disposition: 15:04
--- NOTE | 2018-03-31 14:33 | CT ---
EXAMINATION TYPE: CT abdomen pelvis w con DATE OF EXAM: 03/31/2018 COMPARISON: None HISTORY: Cramping, bloody stool CT DLP: 1202 mGycm Automated exposure control for dose reduction was used. TECHNIQUE: Helical acquisition of images was performed from the lung bases through the pelvis. CONTRAST: Performed without Oral Contrast and with IV Contrast, patient injected with 100 mL of Isovue 300. FINDINGS: There is coarse groundglass interstitial infiltrate at the lung bases. There is no pleural effusion. There is no pericardial effusion. Liver pancreas gallbladder appear normal. Bile ducts are not dilated. There is no adrenal mass. Kidne ys show satisfactory contrast opacification. There is no hydronephrosis. There is 2 mm calcified gran uloma in the spleen. There is no retroperitoneal adenopathy. Ureters are not dilated. Bladder distends smoothly. There are a numerous sigmoid diverticula. There are multiple diverticula also in the transverse colon and some fat stranding around the distal transverse colon consistent with diverticulitis. There is no evidenc e of diverticulitis. The uterus is anteverted. There is no inguinal hernia. There is no free fluid in the pelvis. There is no mesenteric edema or ad enopathy. Appendix appears normal. There are a few pericecal lymph nodes. There is umbilical hernia t hat contains fat. The bony structures are intact. Bony pelvis appears normal. Lumbar disc spaces are normal. There is probably a 2 cm cyst on the right ovary. IMPRESSION: THERE IS MODERATE SIGMOID DIVERTICULOSIS IN THIS RELATIVELY YOUNG PATIENT. There is also diverticulos is in the transverse colon and evidence of focal diverticulitis in the distal transverse colon.
[2018-03-31 14:37] VITALS: BP 120/84; PULSE 64; RESP 18
== END 2018-03-31 15:15 | disposition home or self-care (01) ==
LOC: EC 12:16
DX: K57.92 Diverticulitis of intestine, part unspecified, without perforation or abscess without bleeding (principal); K57.90 Diverticulosis of intestine, part unspecified, without perforation or abscess without bleeding; K64.4 Residual hemorrhoidal skin tags; I10 Essential (primary) hypertension; F32.9 Major depressive disorder, single episode, unspecified; F41.9 Anxiety disorder, unspecified; F17.200 Nicotine dependence, unspecified, uncomplicated; Z88.1 Allergy status to other antibiotic agents; Z88.5 Allergy status to narcotic agent; Z91.040 Latex allergy status; Z91.048 Other nonmedicinal substance allergy status; Z97.5 Presence of (intrauterine) contraceptive device; Z79.899 Other long term (current) drug therapy
CPT/HCPCS: 36415; 80053; 83690; 85025; 85610; 85730; 82272; 81001; 81025; 74177; 99284; Q9967

== ENCOUNTER → 2018-04-11 | Outpatient (CLI) | payer OTHER ==
[2018-04-11 10:48] LABS: HCT 38.2 % (34.0-46.0); MCH 33.2 pg (25.0-35.0); MCHC 33.9 g/dL (31.0-37.0); MCV 97.9 fL (80.0-100.0); Mean Platelet Volume 7.1; Platelet Count 275 k/uL (150-450); RDW 12.7 % (11.5-15.5); WBC 5.1 k/uL (3.8-10.6)
[2018-04-11 13:51] LABS: Erythrocyte Sedimentation Rate 15 mm/hr (0-20)
[2018-04-11 16:02] LABS: Albumin 4.2 g/dL (3.80-4.90); Albumin/Globulin Ratio 2.1 (1.20-2.10); Anion Gap 6.2 mmol/L (4.00-12.00); C Reactive Protein 2.8 mg/dL (0.0-0.8); Calcium 8.6 mg/dL (8.7-10.3); Carbon Dioxide 25.8 mmol/L (21.6-31.8); Total Bilirubin 0.7 mg/dL (0.3-1.2); Total Protein 6.2 g/dL (6.2-8.2)
== END | disposition home or self-care (01) ==
LOC: LABWHC1 09:03
PROVIDERS: ATTEND Physician Assistant
DX: K57.92 Diverticulitis of intestine, part unspecified, without perforation or abscess without bleeding (principal)
CPT/HCPCS: 36415; 80053; 85027; 85652; 86140

== ENCOUNTER 2018-06-22 16:15 | Inpatient (IN) | payer OTHER ==
--- NOTE | 2018-06-22 16:46 | ED ---
General Adult HPI <Molina Infante - Last Filed: 06/22/18 18:56> - General Source: patient, RN notes reviewed Mode of arrival: ambulatory Limitations: no limitations <Antwon Martinez - Last Filed: 06/22/18 19:29> - General Chief complaint: Recheck/Abnormal Lab/Rx Stated complaint: Kidney infection Time Seen by Provider: 06/22/18 16:21 - History of Present Illness Initial comments: 28-year-old female presents to the emergency department for a chief complaint of kidney infection. Patient states that about one week ago she started to have urinary symptoms. She states she was diagnosed with UTI 5 days ago and was started on cipro at that time. She states that since that time she has had worsening suprapubic pain and it is now in her back. Patient believes she has a kidney infection. Patient states she has had subjective fevers at home. Patient states she is in significant pain at this time. She states she has also been very nauseous and has vomited multiple times. She is not able to keep down liquids at home. Patient has no other complaints at this time including shortness of breath, chest pain, headache, or visual changes. ( Antwon Martinez) - Related Data Home Medications Medication Instructions Recorded Confirmed Etonogestrel [Nexplanon] 1 implant SQ [id number] 09/20/17 09/21/17 Phentermine HCl [Adipex-P] 37.5 mg PO QAM 09/20/17 09/21/17 Sertraline [Zoloft] 100 mg PO DAILY 09/20/17 09/21/17 Triamterene-Hctz 37.5-25Mg 1 tab PO DAILY 09/20/17 09/21/17 [Maxzide 37.5-25] busPIRone HCL [Buspar] 7.5 mg PO BID 09/20/17 09/21/17 traZODone HCL [Desyrel] 100 mg PO HS 09/20/17 09/21/17 Previous Rx's Medication Instructions Recorded Amoxic-Pot Clav 875-125Mg 1 tab PO Q12HR 10 Days #20 tablet 03/31/18 [Augmentin 875-125] Allergies Allergy/AdvReac Type Severity Reaction Status Date / Time adhesive Allergy Rash/Hives Verified 02/23/19 16:20 latex Allergy Rash/Hives Verified 06/22/18 16:20 codeine AdvReac Nausea & Verified 06/22/18 16:20 Vomiting metronidazole [From Flagyl] AdvReac Nausea & Verified 06/22/18 16:20 Vomiting Review of Systems ROS Other: All systems not noted in ROS Statement are negative. <Molina Infante - Last Filed: 06/22/18 18:56> ROS Other: All systems not noted in ROS Statement are negative. <Antwon Martinez - Last Filed: 06/22/18 19:29> ROS Statement: Those systems with pertinent positive or pertinent negative responses have been documented in the HPI. Past Medical History Past Medical History: Blood Disorder, Hypertension Additional Past Medical History / Comment(s): FREQUENT DIARRHEA AND BLOOD IN STOOL, MTHFR, HX Back pain, miscarriage x3, diverticulitis History of Any Multi-Drug Resistant Organisms: None Reported Past Surgical History: Breast Surgery, Ear Surgery Additional Past Surgical History / Comment(s): laparoscopy for ovarian cyst removal, D&C x3, RIGHT EAR X4 FOR REMOVAL OF BENIGN TUMOR, RT BREAST BENIGN CYST Past Anesthesia/Blood Transfusion Reactions: Motion Sickness, Postoperative Nausea & Vomiting (PONV) Additional Past Anesthesia/Blood Transfusion Reaction / Comment(s): no hx blood transfusion Past Psychological History: Anxiety, Depression Smoking Status: Current every day smoker Past Alcohol Use History: None Reported Past Drug Use History: Marijuana - Past Family History Mother Family Medical History: No Reported History FATHER Family Medical History: Cancer <Antwon Martinez - Last Filed: 06/22/18 19:29> General Exam Limitations: no limitations General appearance: anxious Head exam: Present: atraumatic, normocephalic, normal inspection Eye exam: Present: normal appearance, PERRL, EOMI. Absent: scleral icterus, conjunctival injection, periorbital swelling ENT exam: Present: normal exam, mucous membranes moist Neck exam: Present: normal inspection, full ROM. Absent: tenderness, meningismus, lymphadenopathy Respiratory exam: Present: normal lung sounds bilaterally. Absent: respiratory distress, wheezes, rales, rhonchi, stridor Cardiovascular Exam: Present: regular rate, normal rhythm, normal heart sounds. Absent: systolic murmur, diastolic murmur, rubs, gallop, clicks GI/Abdominal exam: Present: soft, normal bowel sounds. Absent: distended, tenderness, guarding, rebound, rigid Back exam: Present: CVA tenderness (R), CVA tenderness (L) Neurological exam: Present: alert, oriented X3, CN II-XII intact Psychiatric exam: Present: normal affect, normal mood Skin exam: Present: warm, dry, intact, normal color. Absent: rash <Antwon Martinez - Last Filed: 06/22/18 19:29> Course <Molina Infante - Last Filed: 06/22/18 18:56> <Antwon Martinez P - Last Filed: 06/22/18 19:29> Vital Signs 06/22/18 06/22/18 16:18 18:06 Temperature 99.1 F 98.8 F Pulse Rate 102 H 75 Respiratory 18 18 Rate Blood Pressure 115/67 111/60 O2 Sat by Pulse 99 99 Oximetry - Reevaluation(s) Reevaluation #1: 06/22/18 18:56 The supervision: I did personally evaluate this case patient does demonstrate evidence of pyelonephritis patient will be admitted. The case was discussed with Dr. Steward's group. (Molina Infante) Medical Decision Making - Lab Data Result diagrams: 06/22/18 17:20 06/22/18 17:20 <Molina Infante - Last Filed: 06/22/18 18:56> - Lab Data Result diagrams: 06/22/18 17:20 06/22/18 17:20 <Antwon Martinez - Last Filed: 06/22/18 19:29> - Medical Decision Making 28-year-old female presents to the emergency department for a chief complaint of possible pyelonephritis. Patient states she has had urinary tract infection for about a week and then on Cipro for 5 days. She states she has significant suprapubic and bilateral flank pain. On exam patient does have bilateral CVA tenderness. No significant abdominal tenderness on exam. Patient does have a white count of 12.2. CMP unremarkable. Urine does show greater than 182 white cells. Culture was sent. Blood cultures pending. Lactic acid 1.8. Patient given 2 L of fluids and 2 g of Rocephin. At this time patient has failed outpatient treatment. She is having intractable nausea and vomiting at home and is unable to tolerate oral hydration. Patient will be admitted to the hospital for pyelonephritis, failed outpatient treatment. Dr. Tucker accepts this admission. (Antwon Martinez) - Lab Data Lab Results 06/22/18 06/22/18 06/22/18 Range/Units 17:20 17:20 17:20 WBC 12.2 H (3.8-10.6) k/uL RBC 3.53 L (3.80-5.40) m/uL Hgb 12.1 (11.4-16.0) gm/dL Hct 34.8 (34.0-46.0) % MCV 98.4 (80.0-100.0) fL MCH 34.2 (25.0-35.0) pg MCHC 34.7 (31.0-37.0) g/dL RDW 13.6 (11.5-15.5) % Plt Count 238 (150-450) k/uL Neutrophils % 89 % Lymphocytes % 6 % Monocytes % 4 % Eosinophils % 1 % Basophils % 0 % Neutrophils # 10.8 H (1.3-7.7) k/uL Lymphocytes # 0.8 L (1.0-4.8) k/uL Monocytes # 0.5 (0-1.0) k/uL Eosinophils # 0.1 (0-0.7) k/uL Basophils # 0.0 (0-0.2) k/uL Sodium 141 (137-145) mmol/L Potassium 4.5 (3.5-5.1) mmol/L Chloride 109 H (98-107) mmol/L Carbon Dioxide 26 (22-30) mmol/L Anion Gap 6 mmol/L BUN 9 (7-17) mg/dL Creatinine 0.79 (0.52-1.04) mg/dL Est GFR (CKD-EPI)AfAm >90 (>60 ml/min/1.73 sqM) Est GFR (CKD-EPI)NonAf >90 (>60 ml/min/1.73 sqM) Glucose 110 H (74-99) mg/dL Plasma Lactic Acid Del 1.8 (0.7-2.0) mmol/L Calcium 9.3 (8.4-10.2) mg/dL Total Bilirubin 0.5 (0.2-1.3) mg/dL AST 17 (14-36) U/L ALT 37 (9-52) U/L Alkaline Phosphatase 88 (38-126) U/L Total Protein 6.6 (6.3-8.2) g/dL Albumin 3.6 (3.5-5.0) g/dL Urine Color Urine Appearance (Clear) Urine pH (5.0-8.0) Ur Specific [place] (1.001-1.035) Urine Protein (Negative) Urine Glucose (UA) (Negative) Urine Ketones (Negative) Urine Blood (Negative) Urine Nitrite (Negative) Urine Bilirubin (Negative) Urine Urobilinogen (<2.0) mg/dL Ur Leukocyte Esterase (Negative) Urine RBC (0-5) /hpf Urine WBC (0-5) /hpf Urine WBC Clumps (None) /hpf Urine Mucus (None) /hpf Urine HCG, Qual (Not Detectd) 06/22/18 06/22/18 Range/Units 17:20 17:20 WBC (3.8-10.6) k/uL RBC (3.80-5.40) m/uL Hgb (11.4-16.0) gm/dL Hct (34.0-46.0) % MCV (80.0-100.0) fL MCH (25.0-35.0) pg MCHC (31.0-37.0) g/dL RDW (11.5-15.5) % Plt Count (150-450) k/uL Neutrophils % % Lymphocytes % % Monocytes % % Eosinophils % % Basophils % % Neutrophils # (1.3-7.7) k/uL Lymphocytes # (1.0-4.8) k/uL Monocytes # (0-1.0) k/uL Eosinophils # (0-0.7) k/uL Basophils # (0-0.2) k/uL Sodium (137-145) mmol/L Potassium (3.5-5.1) mmol/L Chloride (98-107) mmol/L Carbon Dioxide (22-30) mmol/L Anion Gap mmol/L BUN (7-17) mg/dL Creatinine (0.52-1.04) mg/dL Est GFR (CKD-EPI)AfAm (>60 ml/min/1.73 sqM) Est GFR (CKD-EPI)NonAf (>60 ml/min/1.73 sqM) Glucose (74-99) mg/dL Plasma Lactic Acid Del (0.7-2.0) mmol/L Calcium (8.4-10.2) mg/dL Total Bilirubin (0.2-1.3) mg/dL AST (14-36) U/L ALT (9-52) U/L Alkaline Phosphatase (38-126) U/L Total Protein (6.3-8.2) g/dL Albumin (3.5-5.0) g/dL Urine Color Light Yellow Urine Appearance Cloudy H (Clear) Urine pH 6.0 (5.0-8.0) Ur Specific [place] 1.011 (1.001-1.035) Urine Protein 1+ H (Negative) Urine Glucose (UA) Negative (Negative) Urine Ketones Negative (Negative) Urine Blood Moderate H (Negative) Urine Nitrite Positive H (Negative) Urine Bilirubin Negative (Negative) Urine Urobilinogen <2.0 (<2.0) mg/dL Ur Leukocyte Esterase Large H (Negative) Urine RBC 35 H (0-5) /hpf Urine WBC >182 H (0-5) /hpf Urine WBC Clumps Many H (None) /hpf Urine Mucus Rare H (None) /hpf Urine HCG, Qual Not Detected (Not Detectd) Disposition <Molina Infante - Last Filed: 06/22/18 18:56> Is patient prescribed a controlled substance at d/c from ED?: No Time of Disposition: 19:29 <Antwon Martinez - Last Filed: 06/22/18 19:29> Clinical Impression: Pyelonephritis, Failure of outpatient treatment, Vomiting Disposition: ADMITTED IP TO THIS HOSP Condition: Good Referrals: Asael Cheema MD [Primary Care Provider] - 1-2 days
[2018-06-22] MEDS ORDERED: ACETAMINOPHEN TAB 500 MG TAB PO STA (16:51)
[2018-06-22] MEDS ORDERED: KETOROLAC 30 MG/ML 1 ML VIAL IVP STA (16:51)
[2018-06-22] MEDS: SODIUM CHLORIDE 0.9% 500 ML 500 ML IV SCH ×2 (17:27→19:31)
[2018-06-22 17:44] LABS: Basophils % (A) 0 %; Eosinophils # (A) 0.1 k/uL (0-0.7); Eosinophils % (A) 1 %; HCT 34.8 % (34.0-46.0); HGB 12.1 gm/dL (11.4-16.0); Lymphocytes # (A) 0.8 k/uL (1.0-4.8); Lymphocytes % (A) 6 %; MCH 34.2 pg (25.0-35.0); MCHC 34.7 g/dL (31.0-37.0); MCV 98.4 fL (80.0-100.0); Mean Platelet Volume 7.2; Monocytes # (A) 0.5 k/uL (0-1.0); Monocytes % (A) 4 %; Neutrophils # (A) 10.8 k/uL (1.3-7.7); Neutrophils % (A) 89 %; Platelet Count 238 k/uL (150-450); RBC 3.53 m/uL (3.80-5.40); RDW 13.6 % (11.5-15.5); WBC 12.2 k/uL (3.8-10.6)
[2018-06-22 17:50] LABS: Appearance,Urine Cloudy (Clear); Bilirubin,Urine Negative (Negative); Blood,Urine Moderate (Negative); Color,Urine Light Yellow; Glucose,Urine (UA) Negative (Negative); Ketones,Urine Negative (Negative); Leukocyte Esterase,Urine Large (Negative); Mucus,Urine Rare /hpf; Nitrite,Urine Positive (Negative); Protein,Urine 1+ (Negative); RBC,Urine 35 /hpf (0-5); Specific Gravity,Urine 1.011 (1.001-1.035); Urobilinogen,Urine <2.0 mg/dL (<2.0); WBC,Urine >182 /hpf (0-5)
[2018-06-22 17:54] LABS: ALT 37 U/L (9-52); AST 17 U/L (14-36); Albumin 3.6 g/dL (3.5-5.0); Alkaline Phosphatase 88 U/L (38-126); Anion Gap 6 mmol/L; Blood Urea Nitrogen 9 mg/dL (7-17); Calcium 9.3 mg/dL (8.4-10.2); Carbon Dioxide 26 mmol/L (22-30); Chloride 109 mmol/L (98-107); Glucose 110 mg/dL (74-99); Potassium 4.5 mmol/L (3.5-5.1); Sodium 141 mmol/L (137-145); Total Bilirubin 0.5 mg/dL (0.2-1.3); Total Protein 6.6 g/dL (6.3-8.2)
[2018-06-22] MEDS ORDERED: ONDANSETRON 4 MG/2 ML VIAL IVP STA (17:56)
[2018-06-22] MEDS ORDERED: MORPHINE SULFATE 4 MG/ML SYRINGE IVP STA (17:56)
[2018-06-22] MEDS ORDERED: NALOXONE 0.4 MG/ML 1 ML VIAL IV PRN (19:44)
[2018-06-22] MEDS: SODIUM CHLORIDE 0.9% 1,000 ML IV SCH (20:41)
[2018-06-22] MEDS: HYDROmorphone 0.5 MG/0.5 ML SYRINGE IVP PRN (21:42)
[2018-06-22] MEDS: KETOROLAC 30 MG/ML 1 ML VIAL IVP PRN (23:06)
[2018-06-23] MEDS: SERTRALINE 100 MG TAB PO SCH ×2 (00:30→08:37)
[2018-06-23] MEDS: traZODone HCL 100 MG TAB PO SCH ×2 (00:31→21:34)
[2018-06-23] MEDS: HYDROmorphone 0.5 MG/0.5 ML SYRINGE IVP PRN ×5 (01:17→17:45)
[2018-06-23] MEDS: ONDANSETRON 4 MG/2 ML VIAL IVP PRN ×3 (01:19→21:40)
[2018-06-23] MEDS: SODIUM CHLORIDE 0.9% 1,000 ML IV SCH ×3 (06:51→23:55)
[2018-06-23] MEDS: KETOROLAC 30 MG/ML 1 ML VIAL IVP PRN ×3 (08:36→21:34)
--- NOTE | 2018-06-24 00:08 | P.HPIM ---
History of Present Illness H&P Date: 06/23/18 Chief Complaint: Right flank pain Patient is a 28 old female with a known history of hypertension, history of diverticulitis, MTHFR, anxiety/depression and nicotine addiction came to ER with complaints of worsening right-sided back pain and suprapubic pain. Pain has been worsening and was not relieved by antibiotics at home. Patient was recently diagnosed with urinary tract infection about 5 days ago and was started on ciprofloxacin. Patient did not get any improvement and with worsening symptoms came to ER for evaluation. Patient denied any chest pain or shortness of breath. Patient does have subjective fevers and chills. Patient has been nauseous and multiple episodes of vomiting. Unable to keep down fluids. Otherwise no complaints of headache or dizziness or lightheadedness or visual symptoms. No diarrhea. Denied any sick contacts or recent travel. No history of renal stones in the past. Urinalysis showed large leukocyte esterase, nitrate positive, elevated RBC and WBC. Review of Systems Constitutional: Patient denies any fever or chills . No generalized weakness or weight loss. Abdomen: Patient does have nausea vomiting and right flank pain and. Suprapubic pain. Cardiovascular: Patient denies any chest pain or short of breath no palpitations. Respiratory: patient denied any cough is from production. No shortness of breath Neurologic: Patient denied any numbness or tingling headache. Musculoskeletal: Patient denies any complaints of joint swelling or deformity. Skin: Negative Psychiatric: Negative Endocrine: No heat or cold intolerance. No recent weight gain. Genitourinary: No dysuria or hematuria. All other 14 point ROS negative except the above Past Medical History Past Medical History: Blood Disorder, Hypertension Additional Past Medical History / Comment(s): FREQUENT DIARRHEA AND BLOOD IN STOOL- diverticulitis, MTHFR, HX Back pain, miscarriage x4. 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, RT BREAST BENIGN CYST Past Anesthesia/Blood Transfusion Reactions: Motion Sickness, Postoperative Nausea & Vomiting (PONV) Additional Past Anesthesia/Blood Transfusion Reaction / Comment(s): no hx blood transfusion Past Psychological History: Anxiety, Depression Smoking Status: Current every day smoker Past Alcohol Use History: None Reported Additional Past Alcohol Use History / Comment(s): SMOKES APPROX 2 CIGARETTES A DAY, STARTED AGE 18( Past Drug Use History: Marijuana - Past Family History Mother Family Medical History: Cancer Additional Family Medical History / Comment(s): skin cancer FATHER Family Medical History: Cancer, Deep Vein Thrombosis (DVT) Additional Family Medical History / Comment(s): skin cancer Medications and Allergies Home Medications Medication Instructions Recorded Confirmed Type Phentermine HCl [Adipex-P] 37.5 mg PO QAM 09/20/17 06/22/18 History Sertraline [Zoloft] 100 mg PO DAILY 09/20/17 06/22/18 History traZODone HCL [Desyrel] 100 mg PO HS 09/20/17 06/22/18 History Dicyclomine HCl 20 mg PO TID 06/22/18 06/22/18 History Ondansetron Odt [Zofran Odt] 4 mg PO Q12HR PRN 06/22/18 06/22/18 History Allergies Allergy/AdvReac Type Severity Reaction Status Date / Time adhesive Allergy Rash/Hives Verified 06/22/18 22:06 latex Allergy Rash/Hives Verified 06/22/18 22:06 codeine AdvReac Nausea & Verified 06/22/18 22:06 Vomiting metronidazole [From Flagyl] AdvReac Nausea & Verified 06/22/18 22:06 Vomiting Physical Exam Vitals: Vital Signs Temp Pulse Pulse Resp BP BP Pulse Ox 06/23/18 07:49 97.9 F 72 16 111/69 97 06/23/18 06:46 98.1 F 80 16 93/60 95 06/23/18 01:33 90 18 130/89 99 06/23/18 01:08 100 20 146/95 99 06/23/18 00:00 90 16 06/22/18 23:00 98.6 F 94 16 100/65 96 06/22/18 20:40 98.2 F 90 18 102/69 96 06/22/18 20:14 99.0 F 64 16 118/74 98 06/22/18 18:06 98.8 F 75 18 111/60 99 06/22/18 16:18 99.1 F 102 H 18 115/67 99 Intake and Output 06/22/18 06/23/18 06/23/18 22:59 06:59 14:59 Output Total 250 Balance -250 Output: Emesis 250 Other: Voiding Method Toilet Toilet Toilet # Voids 1 1 1 Weight 88.451 kg PHYSICAL EXAMINATION: Patient is lying in the bed comfortably, no acute distress, awake alert and oriented.. HEENT: Normocephalic. Neck is supple. Pupils reactive. Nostrils clear. Oral cavity is moist. Ears reveal no drainage. Neck reveals no JVD, carotid bruits, or thyromegaly. CHEST EXAMINATION: Trachea is central. Symmetrical expansion. Lung womack clear to auscultation and percussion. CARDIAC: Normal S1, S2 with no gallops. No murmurs ABDOMEN: Soft. Bowel sounds normal. No organomegaly. No abdominal bruits. Right flank tenderness Extremities: reveal no edema. No clubbing or cyanosis Neurologically awake, alert, oriented x3 with well-coordinated movements. No focal deficits noted Skin: No rash or skin lesions. Psychiatric: Coperative. Nonsuicidal. Anxious Musculoskeletal: No joint swelling or deformity. Normal range of motion. Results CBC & Chem 7: 06/22/18 17:20 06/22/18 17:20 Labs: Abnormal Lab Results - Last 24 Hours (Table) 06/22/18 06/22/18 06/22/18 Range/Units 17:20 17:20 17:20 WBC 12.2 H (3.8-10.6) k/uL RBC 3.53 L (3.80-5.40) m/uL Neutrophils # 10.8 H (1.3-7.7) k/uL Lymphocytes # 0.8 L (1.0-4.8) k/uL Chloride 109 H (98-107) mmol/L Glucose 110 H (74-99) mg/dL Urine Appearance Cloudy H (Clear) Urine Protein 1+ H (Negative) Urine Blood Moderate H (Negative) Urine Nitrite Positive H (Negative) Ur Leukocyte Esterase Large H (Negative) Urine RBC 35 H (0-5) /hpf Urine WBC >182 H (0-5) /hpf Urine WBC Clumps Many H (None) /hpf Urine Mucus Rare H (None) /hpf Microbiology - Last 24 Hours (Table) 06/22/18 17:20 Blood Culture Gram Stain - Preliminary Blood Blood Culture - Preliminary Gram Neg Bacilli 06/22/18 17:20 Blood Culture - Final Blood 06/22/18 17:20 Urine Culture - Preliminary Urine,Voided Thrombosis Risk Factor Assmnt - DVT/VTE Prophylaxis DVT/VTE Prophylaxis: Pharmacologic Prophylaxis ordered - Choose All That Apply Each Factor Represents 1 point: History of:, Medical pt on bed rest, Obesity ( BMI >25), Swollen legs (current) Other Risk Factors: No Thrombosis Risk Factor Assessment Total Risk Factor Score: 4 Thrombosis Risk Factor Assessment Level: Moderate Risk Assessment and Plan Assessment: Acute pyelonephritis Sepsis secondary to acute pyelonephritis. Recent urinary tract infection failed outpatient therapy Right flank pain secondary to above Hypertension Anxiety/depression MTHFR gene mutation. Factor II deficiency History of diverticulitis Nicotine addiction, currently every day smoker Marijuana use DVT prophylaxis Morbid obesity with BMI 35.7 Plan: Patient will be continued on antibiotics in the form of ceftriaxone. Continue with IV fluids. Follow-up urine culture report. Continue the pain management and symptomatic management for nausea and vomiting. Encourage oral intake. Continue the home medications and follow up closely. Further recommendations based on the clinical course. Time with Patient: Greater than 30
[2018-06-24] MEDS: HEPARIN SODIUM,PORCINE 5,000 UNIT/ML 1 ML VIAL SQ SCH ×4 (00:13→23:22)
[2018-06-24] MEDS: HYDROmorphone 0.5 MG/0.5 ML SYRINGE IVP PRN ×5 (00:50→22:08)
[2018-06-24] MEDS: KETOROLAC 30 MG/ML 1 ML VIAL IVP PRN ×3 (03:43→23:21)
[2018-06-24] MEDS: ACETAMINOPHEN TAB 325 MG TAB PO PRN ×2 (03:44→18:50)
[2018-06-24] MEDS: SODIUM CHLORIDE 0.9% 1,000 ML IV SCH ×3 (07:46→22:10)
[2018-06-24] MEDS: SERTRALINE 100 MG TAB PO SCH (07:54)
[2018-06-24] MEDS: DICYCLOMINE 20 MG TAB PO SCH ×3 (07:54→22:08)
[2018-06-24] MEDS: NON-FORMULARY DRUG (Phentermine Hcl [Adipex-P] 37.5 MG) PO SCH (08:51)
[2018-06-24] MEDS: ONDANSETRON 4 MG/2 ML VIAL IVP PRN ×2 (09:35→18:44)
--- NOTE | 2018-06-24 14:38 | US ---
EXAMINATION TYPE: US kidneys/renal and bladder DATE OF EXAM: 06/24/2018 COMPARISON: CT 2018 CLINICAL HISTORY: renal abscess. Pyelonephritis, hematuria EXAM MEASUREMENTS: Right Kidney: 10.4 x 4.8 x 5.4 cm Left Kidney: 10.4 x 4.7 x 6.0 cm Right Kidney: no hydronephrosis or masses seen Left Kidney: no hydronephrosis or masses seen Bladder: not fully distended, appears wnl as seen Bilateral Jets seen: no Spleen: 13.1cm, mildly enlarged There is no evidence for hydronephrosis at this point in time. No nephrolithiasis is seen. No yin s are identified. The urinary bladder is poorly distended. Bilateral ureteral jets are not seen. IMPRESSION: No hydronephrosis is evident bilaterally. No suspicious perirenal fluid collections are identified.
[2018-06-24] MEDS: traZODone HCL 100 MG TAB PO SCH (22:08)
--- NOTE | 2018-06-25 02:02 | P.PN ---
Subjective Progress Note Date: 06/24/18 Principal diagnosis: Acute pyelonephritis 28 old female with a known history of hypertension, history of diverticulitis, MTHFR, anxiety/depression and nicotine addiction came to ER with complaints of worsening right-sided back pain and suprapubic pain. Pain has been worsening and was not relieved by antibiotics at home. Patient was recently diagnosed with urinary tract infection about 5 days ago and was started on ciprofloxacin. Patient did not get any improvement and with worsening symptoms came to ER for evaluation. Patient denied any chest pain or shortness of breath. Patient does have subjective fevers and chills. Patient has been nauseous and multiple episodes of vomiting. Unable to keep down fluids. Otherwise no complaints of headache or dizziness or lightheadedness or visual symptoms. No diarrhea. Denied any sick contacts or recent travel. No history of renal stones in the past. Urinalysis showed large leukocyte esterase, nitrate positive, elevated RBC and WBC. Urine and blood cultures are positive for E Coli sensitive to Rocephin; will continue current antibiotics and consult ID for further recs Objective - Vital Signs Vital signs: Vital Signs Temp 98.2 F 06/24/18 12:13 Pulse 50 L 06/24/18 12:13 Resp 16 06/24/18 12:13 BP 125/84 06/24/18 12:13 Pulse Ox 94 L 06/24/18 12:13 Intake & Output 06/23/18 06/24/18 06/24/18 18:59 06:59 18:59 Intake Total 1200 Output Total 250 Balance -250 1200 Intake: Oral 1200 Output: Emesis 250 Other: Voiding Method Toilet # Voids 2 4 # Emeses 1 - Exam Patient is lying in the bed comfortably, no acute distress, awake alert and oriented.. HEENT: Normocephalic. Neck is supple. Pupils reactive. Nostrils clear. Oral cavity is moist. Ears reveal no drainage. Neck reveals no JVD, carotid bruits, or thyromegaly. CHEST EXAMINATION: Trachea is central. Symmetrical expansion. Lung womack clear to auscultation and percussion. CARDIAC: Normal S1, S2 with no gallops. No murmurs ABDOMEN: Soft. Bowel sounds normal. No organomegaly. No abdominal bruits. Right flank tenderness Extremities: reveal no edema. No clubbing or cyanosis Neurologically awake, alert, oriented x3 with well-coordinated movements. No focal deficits noted Skin: No rash or skin lesions. Psychiatric: Coperative. Nonsuicidal. Anxious Musculoskeletal: No joint swelling or deformity. Normal range of motion. - Labs CBC & Chem 7: 06/22/18 17:20 06/22/18 17:20 Labs: Microbiology - Last 24 Hours (Table) 06/22/18 17:20 Blood Culture Gram Stain - Final Blood Blood Culture - Final Escherichia coli 06/22/18 17:20 Urine Culture - Preliminary Urine,Voided Gram Neg Bacilli Assessment and Plan Assessment: Acute pyelonephritis Sepsis secondary to acute pyelonephritis. Recent urinary tract infection failed outpatient therapy Right flank pain secondary to above Hypertension Anxiety/depression MTHFR gene mutation. Factor II deficiency History of diverticulitis Nicotine addiction, currently every day smoker Marijuana use DVT prophylaxis Morbid obesity with BMI 35.7 Plan: Patient will be continued on antibiotics in the form of ceftriaxone. Continue with IV fluids. Follow-up urine culture report. Continue the pain management and symptomatic management for nausea and vomiting. Encourage oral intake. Continue the home medications and follow up closely. Further recommendations based on the clinical course. Time with Patient: Greater than 30
[2018-06-25] MEDS: ONDANSETRON 4 MG/2 ML VIAL IVP PRN ×4 (03:15→21:16)
--- NOTE | 2018-06-25 06:32 | CONS ---
CONSULTATION DATE OF SERVICE: 06/24/2018. REASON FOR CONSULTATION: E coli bacteremia and urinary tract infection. HISTORY OF PRESENT ILLNESS: The patient is a 28 -year-old female with past medical history of problem with urinary symptoms mostly with burning and small amount of urine with some urgency that has been going on for a couple of weeks, was evaluated in the outpatient setting by the OB. Apparently the patient told that she did not provide enough urine sample and to increase the fluid intake. No antibiotic was prescribe. The patient said she went to [place] for and a week ago she started having more symptoms. Started having a pain in the right flank area. Pain described to be throbbing almost a 7 to 8 out of 10 with no radiation. The patient has felt nauseated and episodes of vomiting with persistent symptoms. She was seen in Urgent Care in [place] where the patient was prescribed Cipro 500 mg twice a day. The patient took the Cipro for 5 days. However, the patient apparently did not have any improvement in her symptomatology. With worsening urinary symptoms, flank pain, and feeling bad, the patient did presented to the [facility] where the patient was evaluated by the ER physician. On arrival to the ER, the patient did have a low-grade fever of 99, however, subsequently did have fever of 102.5 this morning. The patient did have a UA that was positive with large leukocyte esterase with more than 1-2 WBC, elevated white count of 12.2. Blood and urine culture with positive with an E coli infection. Infectious disease was consulted for further recommendation regarding antibiotic therapy. REVIEW OF SYSTEMS: CONSTITUTIONAL: Positive for weakness along with the fever. Eyes: No complaint. ENT no complaint. Respiratory: No complaint. Cardiovascular: No complaint. Genitourinary as per HPI. GASTROINTESTINAL: As per HPI. Musculoskeletal: No complaint. INTEGUMENTARY: No complaint. PSYCHOLOGICAL: No complaint. ENDOCRINE: No complaint. Neurologic no complaint. PAST MEDICAL HISTORY: Hypertension, chronic back pain, factor 2 deficiency. PAST SURGICAL HISTORY: Laparoscopy for ovarian cyst removal, D and C x3, right ear surgery for benign tumor and right breast benign cyst removed. PAST PSYCHOLOGICAL HISTORY: Anxiety/depression. SOCIAL HISTORY: Patient current everyday smoker. Smokes approximately 2 cigarettes per day. Started age of 18, did admit to marijuana use. No drinking. FAMILY HISTORY: Mother with history of skin cancer. Father history of DVT and skin cancer. ALLERGIES: CODEINE, METRONIDAZOLE, LATEX. MEDICATIONS: Include the patient is currently on Tylenol, Rocephin 2 g daily. She is on Bentyl, heparin, Dilaudid, Toradol, Narcan, Zofran, Zoloft and Desyrel. PHYSICAL EXAMINATION: Blood pressure is 158/89 with a pulse of 71, temperature 97.8, T-max is 100.5. She is 97% on room air. General description is a young female lying in bed in no distress. No tachypnea or accessory muscles of respiration use. HEENT: Shows no pallor or scleral icterus. Oral mucosa membranes are dry. No pharyngeal erythema or thrush. Neck trachea central. No thyromegaly. Lungs unlabored breathing. Clear to auscultation anteriorly. No wheeze or crackles. Heart S1, S2. Regular rate and rhythm. ABDOMEN: Soft. The patient did have right CVA tenderness. No guarding. No rigidity. No organomegaly. EXTREMITIES: No edema of the feet. Skin examination: No rashes or mass palpable. Neurological: Patient is awake, alert, oriented x3. Mood and affect normal. LABS: Hemoglobin is 12.1 with white count of 12.2, BUN of 9, creatinine 0.7, white count normal. Liver enzymes are normal. UA positive with large leukocyte esterase with more than 1-2 WBC. Blood and urine with an E coli that is sensitive pathogen, sensitive to all the antibiotics. DIAGNOSTIC IMPRESSION AND PLAN: Patient admitted to the hospital with sepsis in this patient who did have a fever of 100.5. The patient did have elevated white count with evidence of a E coli bacteremia, source likely urinary with concern for possible pyelonephritis. This patient who has failed to respond to the ciprofloxacin raise possibility for possible either a structure abnormality or an abscess. PLAN: 1. We will obtain ultrasound of the kidney, bladder to make sure no evidence of any infection or abnormality. 2. Rocephin 2 gm to continue. 3. If the ultrasound negative for any abscess and the patient continues to improve with no fever over 24 hours she will be transitioned to oral antibiotic on discharge. Thank you for this consultation. Family present at bedside. Their questions and concerns were answered. MMODL / IJN: [id number] /
[2018-06-25] MEDS: KETOROLAC 30 MG/ML 1 ML VIAL IVP PRN (06:56)
[2018-06-25] MEDS: SODIUM CHLORIDE 0.9% 1,000 ML IV SCH ×2 (06:59→15:01)
[2018-06-25] MEDS: NON-FORMULARY DRUG (Phentermine Hcl [Adipex-P] 37.5 MG) PO SCH (07:06)
[2018-06-25] MEDS: DICYCLOMINE 20 MG TAB PO SCH ×2 (08:00→16:33)
[2018-06-25] MEDS ORDERED: PANTOPRAZOLE 40 MG/10 ML VIAL IVP SCH (09:00)
[2018-06-25] MEDS: SERTRALINE 100 MG TAB PO SCH (09:00)
[2018-06-25 09:42] LABS: Basophils % (A) 0 %; Eosinophils # (A) 0.1 k/uL (0-0.7); Eosinophils % (A) 1 %; HGB 10.8 gm/dL (11.4-16.0); Lymphocytes # (A) 0.9 k/uL (1.0-4.8); Lymphocytes % (A) 12 %; MCH 32.8 pg (25.0-35.0); MCHC 32.7 g/dL (31.0-37.0); MCV 100.4 fL (80.0-100.0); Macrocytosis Slight; Mean Platelet Volume 6.7; Monocytes # (A) 0.2 k/uL (0-1.0); Monocytes % (A) 3 %; Neutrophils # (A) 5.8 k/uL (1.3-7.7); Neutrophils % (A) 83 %; Platelet Count 264 k/uL (150-450); RBC 3.29 m/uL (3.80-5.40); RDW 13.7 % (11.5-15.5)
[2018-06-25 09:53] LABS: Anion Gap 7 mmol/L; Blood Urea Nitrogen 11 mg/dL (7-17); Carbon Dioxide 21 mmol/L (22-30); Chloride 114 mmol/L (98-107); Glucose 127 mg/dL (74-99); Potassium 4.4 mmol/L (3.5-5.1); Sodium 142 mmol/L (137-145)
[2018-06-25] MEDS: HEPARIN SODIUM,PORCINE 5,000 UNIT/ML 1 ML VIAL SQ SCH ×2 (10:13→16:36)
--- NOTE | 2018-06-25 14:50 | XR ---
2 view abdomen HISTORY: Persistent vomiting 2 views of the abdomen on 3 images correlated to prior abdomen 04/27/2015, CT 03/31/2018 Lung bases are clear. There is no evident bowel obstruction or pneumoperitoneum. No pathologic calcif ication. Spina bifida occulta suspected at L5, sacral levels. IMPRESSION: Nonobstructive bowel gas pattern
[2018-06-25] MEDS: TRIMETHOBENZAMIDE 100 MG/ML 2 ML VIAL IM PRN (16:37)
--- NOTE | 2018-06-25 19:40 | P.PN ---
Subjective This is a pleasant 28 years old FEMALE who presents because of E. coli urinary tract infection and pyelonephritis on the right side, patient is improving with IV antibiotics with less pain in the right flank area and right CVA area. No more fever in the last 24 hours. However patient continued to have recurrent nausea vomiting. No bowel movement for the last 4-5 days. However patient denies abdominal pain or tenderness. Abdominal x-ray: Nonobstructive pattern. Patient was treated with Zofran and Tigan. Continue with IV fluids Objective - Vital Signs Vital signs: Vital Signs Temp 97.8 F 06/25/18 12:15 Pulse 62 06/25/18 12:15 Resp 14 06/25/18 12:15 BP 145/82 06/25/18 12:15 Pulse Ox 94 L 06/25/18 12:15 Intake & Output 06/25/18 06/25/18 06/26/18 06:59 18:59 06:59 Intake Total 600 Output Total 300 202 Balance 300 -202 Intake: Oral 600 Output: Urine 300 200 Stool 1 Emesis 1 Other: Voiding Method Toilet Toilet # Voids 2 - Exam GENERAL: The patient is alert and oriented x3, not in any acute distress. Well developed, well nourished. HEENT: Pupils are round and equally reacting to light. EOMI. No scleral icterus. No conjunctival pallor. Normocephalic, atraumatic. No pharyngeal erythema. No thyromegaly. CARDIOVASCULAR: S1 and S2 present. No murmurs, rubs, or gallops. PULMONARY: Chest is clear to auscultation, no wheezing or crackles. -ABDOMEN: Soft, right flank tenderness, no rebound tenderness, nondistended, normoactive bowel sounds. No palpable organomegaly. MUSCULOSKELETAL: No joint swelling or deformity. EXTREMITIES: No cyanosis, clubbing, or pedal edema. NEUROLOGICAL: Gross neurological examination did not reveal any focal deficits. SKIN: No rashes. - Labs CBC & Chem 7: 06/25/18 09:25 06/25/18 09:25 Labs: Abnormal Lab Results - Last 24 Hours (Table) 06/25/18 06/25/18 Range/Units 09:25 09:25 RBC 3.29 L (3.80-5.40) m/uL Hgb 10.8 L (11.4-16.0) gm/dL Hct 33.0 L (34.0-46.0) % MCV 100.4 H (80.0-100.0) fL Lymphocytes # 0.9 L (1.0-4.8) k/uL Chloride 114 H (98-107) mmol/L Carbon Dioxide 21 L (22-30) mmol/L Glucose 127 H (74-99) mg/dL Calcium 8.0 L (8.4-10.2) mg/dL Microbiology - Last 24 Hours (Table) 06/22/18 17:20 Urine Culture - Final Urine,Voided Escherichia coli Assessment and Plan Assessment: E. coli urinary tract infection Right pyelonephritis Recurrent nausea vomiting Constipation History of marijuana abuse. Plan: This is a pleasant 28 years old female presents with UTI and pyelonephritis, recurrent nausea vomiting. Continue with nothing by mouth and then advance diet gradually., Unlikely of distal obstruction. Patient with constipation. Which was started on Colace. And with antibiotics as per infectious disease team recommendation. IV hydration. My plan
[2018-06-25] MEDS ORDERED: PANTOPRAZOLE 40 MG TABLET PO SCH (21:00)
[2018-06-25] MEDS: PANTOPRAZOLE 40 MG/10 ML VIAL IV SCH (21:16)
[2018-06-25] MEDS: traZODone HCL 100 MG TAB PO SCH (21:17)
[2018-06-26] MEDS: DICYCLOMINE 20 MG TAB PO SCH ×4 (00:27→22:03)
[2018-06-26] MEDS: DOCUSATE 100 MG CAP PO SCH ×3 (00:27→18:10)
[2018-06-26] MEDS: HEPARIN SODIUM,PORCINE 5,000 UNIT/ML 1 ML VIAL SQ SCH ×3 (00:35→16:21)
[2018-06-26] MEDS: TRIMETHOBENZAMIDE 100 MG/ML 2 ML VIAL IM PRN ×3 (01:03→14:41)
[2018-06-26] MEDS: SODIUM CHLORIDE 0.9% 1,000 ML IV SCH ×3 (01:12→16:32)
[2018-06-26] MEDS ORDERED: IPRATROPIUM-ALBUTEROL 3 ML NEB INHALATION PRN (02:55)
[2018-06-26] MEDS: ONDANSETRON 4 MG/2 ML VIAL IVP PRN ×4 (03:58→22:16)
--- NOTE | 2018-06-26 05:35 | PN ---
PROGRESS NOTE DATE OF SERVICE: 06/25/2018. REASON FOR FOLLOWUP: E Coil bacteremia secondary to right-sided pyelonephritis. INTERVAL HISTORY: The patient is currently afebrile. The patient is breathing comfortably. However, the patient complains of feeling nauseated and unable to keep anything down. No abdominal pain. No diarrhea. Pain to the right leg area slightly decreased. PHYSICAL EXAMINATION: On examination, blood pressure 145/82 with a pulse of 62 temperature 97.8. She is 94% on room air. General description is a middle aged female, lying in bed in no distress. RESPIRATORY SYSTEM: Unlabored breathing clear to auscultation anteriorly. HEART: S1, S2. Regular rate and rhythm. ABDOMEN: Soft, no tenderness. LABS: Hemoglobin is 10.8, white count 7.0 with BUN of 11, creatinine 0.68. DIAGNOSTIC IMPRESSION AND PLAN: Patient with Escherichia coli bacteremia secondary to the right-sided pyelonephritis, currently covered with Rocephin, to continue for now. Will finish therapy with oral Ceftin. Prescription already sent to pharmacy. Close outpatient followup. Continue with supportive care. MMODL / IJN: [id number] /
[2018-06-26] MEDS: ACETAMINOPHEN TAB 325 MG TAB PO PRN (06:23)
[2018-06-26 07:07] LABS: Anion Gap 10 mmol/L; Blood Urea Nitrogen 10 mg/dL (7-17); Calcium 8.1 mg/dL (8.4-10.2); Carbon Dioxide 22 mmol/L (22-30); Chloride 112 mmol/L (98-107); Glucose 131 mg/dL (74-99); Sodium 144 mmol/L (137-145)
--- NOTE | 2018-06-26 08:22 | XR ---
EXAMINATION TYPE: XR chest 2V DATE OF EXAM: 06/26/2018 COMPARISON: 08/20/2008 INDICATION: Short of breath wheezing cough TECHNIQUE: Frontal and lateral views of the chest are obtained. FINDINGS: The heart size is normal. The pulmonary vasculature is indistinct. There is patchy infiltrates bilaterally more focal into the left upper lobe. Correlate for infectious etiologies. Consider atypical forms of pneumonia.. IMPRESSION: 1. Patchy bilateral infiltrates greater into the left upper lobe. Correlate for pneumonia. Follow-up is recommended.
[2018-06-26] MEDS: PANTOPRAZOLE 40 MG/10 ML VIAL IV SCH ×2 (08:25→22:03)
[2018-06-26] MEDS: IPRATROPIUM-ALBUTEROL 3 ML NEB INHALATION SCH ×4 (08:47→20:35)
[2018-06-26] MEDS: SERTRALINE 100 MG TAB PO SCH (10:16)
[2018-06-26] MEDS: NON-FORMULARY DRUG (Phentermine Hcl [Adipex-P] 37.5 MG) PO SCH (10:16)
[2018-06-26] MEDS ORDERED: MAG HYDROX/AL HYDROX/SIMETH 30 ML, HYOSCYAMINE ELIXIR 10 ML, CIMETIDINE HCL 300 MG PO ONE ×3 (14:00)
[2018-06-26] MEDS: PIPERACILLIN-TAZOBACTAM 3.375 GM in SODIUM CHLORIDE 0.9% 100 ML IVPB SCH (16:21)
--- NOTE | 2018-06-26 16:51 | P.PN ---
Subjective This is a pleasant 28 years old FEMALE who presents because of E. coli urinary tract infection and pyelonephritis on the right side, patient is improving with IV antibiotics with less pain in the right flank area and right CVA area. No more fever in the last 24 hours. However patient continued to have recurrent nausea vomiting. No bowel movement for the last 4-5 days. However patient denies abdominal pain or tenderness. Abdominal x-ray: Nonobstructive pattern. Patient was treated with Zofran and Tigan. Continue with IV fluids 04/25/2019 Patient nausea still there but no more vomiting, she still and Tigan and Zofran. She did not eat much today however we can advance diet. She has some burning pain in the chest and chest x-ray showing possible pneumonia, which is suspicious for aspiration and she had frequent vomiting versus atelectasis. Also patient is with no limp. No dyspnea. Her dysuria and right flank pain are improving she has some back discomfort from lying in the bed. Was sent for sputum culture and change antibiotics from subtraction to Zosyn. Keep monitor labs and vitals. Infectious disease input is appreciated Review of systems CONSTITUTIONAL: No fever, no malaise, no fatigue. HEENT: No recent visual problems or hearing problems. Denied any sore throat. CARDIOVASCULAR: No orthopnea, PND, no palpitations, no syncope. PULMONARY: No shortness of breath, no cough, no hemoptysis. GASTROINTESTINAL: No diarrhea, no nausea, no vomiting, no abdominal pain. Normoactive bowel sounds. NEUROLOGICAL: No headaches, no weakness, no numbness. HEMATOLOGICAL: Denies any bleeding or petechiae. GENITOURINARY: Denies any burning micturition, frequency, or urgency. MUSCULOSKELETAL/RHEUMATOLOGICAL: Denies any joint pain, swelling, or any muscle pain. ENDOCRINE: Denies any polyuria or polydipsia. Medication: Albuterol, Tylenol, Bentyl, Colace, heparin, Dilaudid, Narcan, Zofran, Protonix, Zosyn, Zoloft, visceral, Tigan. Objective - Vital Signs Vital signs: Vital Signs Temp 97.4 F L 06/26/18 15:00 Pulse 90 06/26/18 16:43 Resp 20 06/26/18 15:00 BP 125/81 06/26/18 15:00 Pulse Ox 96 06/26/18 15:00 Intake & Output 06/25/18 06/26/18 06/26/18 18:59 06:59 18:59 Output Total 202 1000 Balance -202 -1000 Output: Urine 200 700 Stool 1 Emesis 1 300 Other: Voiding Method Toilet Toilet # Voids 1 # Bowel Movements 1 - Exam GENERAL: The patient is alert and oriented x3, not in any acute distress. Well developed, well nourished. HEENT: Pupils are round and equally reacting to light. EOMI. No scleral icterus. No conjunctival pallor. Normocephalic, atraumatic. No pharyngeal erythema. No thyromegaly. CARDIOVASCULAR: S1 and S2 present. No murmurs, rubs, or gallops. PULMONARY: Chest is clear to auscultation, no wheezing or crackles. -ABDOMEN: Soft, right flank tenderness, no rebound tenderness, nondistended, normoactive bowel sounds. No palpable organomegaly. MUSCULOSKELETAL: No joint swelling or deformity. EXTREMITIES: No cyanosis, clubbing, or pedal edema. NEUROLOGICAL: Gross neurological examination did not reveal any focal deficits. SKIN: No rashes. - Labs CBC & Chem 7: 06/25/18 09:25 06/26/18 06:35 Labs: Abnormal Lab Results - Last 24 Hours (Table) 06/26/18 Range/Units 06:35 Chloride 112 H (98-107) mmol/L Glucose 131 H (74-99) mg/dL Calcium 8.1 L (8.4-10.2) mg/dL Assessment and Plan Assessment: E. coli urinary tract infection Right pyelonephritis Possible aspiration pneumonia Recurrent nausea vomiting Constipation History of marijuana abuse. Plan: This is a pleasant 28 years old female presents with UTI and pyelonephritis, recurrent nausea vomiting. Continue with nothing by mouth and then advance diet gradually., Unlikely of distal obstruction. Patient with constipation. Which was started on Colace. And with antibiotics as per infectious disease team recommendation. IV hydration. My plan
[2018-06-26] MEDS: traZODone HCL 100 MG TAB PO SCH (22:03)
[2018-06-27] MEDS: SODIUM CHLORIDE 0.9% 1,000 ML IV SCH ×3 (00:06→21:15)
[2018-06-27] MEDS: PIPERACILLIN-TAZOBACTAM 3.375 GM in SODIUM CHLORIDE 0.9% 100 ML IVPB SCH ×3 (00:06→16:24)
[2018-06-27] MEDS: HEPARIN SODIUM,PORCINE 5,000 UNIT/ML 1 ML VIAL SQ SCH ×3 (00:06→16:24)
--- NOTE | 2018-06-27 05:27 | PN ---
PROGRESS NOTE DATE OF SERVICE: 06/26/2018 REASON FOR FOLLOWUP: E coli bacteremia secondary to urinary source. INTERVAL HISTORY: The patient is afebrile. Denies any fever or chills. The patient is complaining of some shortness of breath and wheezing for which the patient did have a chest x-ray which shows patchy bilateral infiltrate greater in the upper lobe with concern for pneumonia. This patient currently with no fever or elevated white count. Antibiotic has been broadened to Zosyn. Patient improved, especially the right flank pain has improved. Some nausea but no vomiting and no diarrhea. PHYSICAL EXAMINATION: On examination, blood pressure is 125/81 with a pulse of 77, temperature 97.4. She is 96% on room air. General description is a young female up in the bed in no distress. RESPIRATORY SYSTEM: Unlabored breathing with decreased breath sounds at the base, no wheeze. HEART: S1, S2. Regular rate and rhythm. ABDOMEN: Soft, no tenderness. LABS: BUN of 10, creatinine 0.66. Chest x-ray report as mentioned above. DIAGNOSTIC IMPRESSION AND PLAN: Patient admitted to the hospital with Escherichia coli bacteremia secondary to urinary source in a patient who did have right-sided pyelonephritis with no evidence of , currently was covered with Rocephin. Antibiotic has been transitioned to Zosyn because of the abnormal chest x-ray which could be related to either fluid or atelectasis, for pneumonia. Will monitor her clinical course closely. Continue with supportive care. MMODL / IJN: [id number] /
[2018-06-27] MEDS: PANTOPRAZOLE 40 MG/10 ML VIAL IV SCH ×2 (08:14→21:34)
[2018-06-27] MEDS: DOCUSATE 100 MG CAP PO SCH ×2 (08:15→21:34)
[2018-06-27] MEDS: ONDANSETRON 4 MG/2 ML VIAL IVP PRN ×2 (08:15→21:44)
[2018-06-27] MEDS: DICYCLOMINE 20 MG TAB PO SCH ×3 (08:24→21:42)
[2018-06-27] MEDS: NON-FORMULARY DRUG (Phentermine Hcl [Adipex-P] 37.5 MG) PO SCH (08:30)
[2018-06-27] MEDS: SERTRALINE 100 MG TAB PO SCH (08:31)
[2018-06-27] MEDS: IPRATROPIUM-ALBUTEROL 3 ML NEB INHALATION SCH ×4 (08:46→20:04)
[2018-06-27 08:52] LABS: Basophils % (A) 0 %; Eosinophils # (A) 0.1 k/uL (0-0.7); Eosinophils % (A) 1 %; HCT 32.6 % (34.0-46.0); Lymphocytes # (A) 1.3 k/uL (1.0-4.8); Lymphocytes % (A) 14 %; MCH 33.7 pg (25.0-35.0); MCHC 33.8 g/dL (31.0-37.0); MCV 99.6 fL (80.0-100.0); Macrocytosis Slight; Mean Platelet Volume 6.4; Monocytes # (A) 0.4 k/uL (0-1.0); Monocytes % (A) 5 %; Neutrophils # (A) 7.5 k/uL (1.3-7.7); Neutrophils % (A) 80 %; Platelet Count 302 k/uL (150-450); RBC 3.27 m/uL (3.80-5.40); RDW 14.1 % (11.5-15.5); WBC 9.4 k/uL (3.8-10.6)
[2018-06-27 09:07] LABS: Anion Gap 8 mmol/L; Blood Urea Nitrogen 6 mg/dL (7-17); Calcium 8.4 mg/dL (8.4-10.2); Carbon Dioxide 24 mmol/L (22-30); Chloride 110 mmol/L (98-107); Glucose 112 mg/dL (74-99); Potassium 3.7 mmol/L (3.5-5.1); Sodium 142 mmol/L (137-145)
[2018-06-27] MEDS ORDERED: BENZONATATE 100 MG CAP PO PRN (14:30)
[2018-06-27] MEDS: ACETAMINOPHEN TAB 325 MG TAB PO PRN ×2 (16:23→21:50)
--- NOTE | 2018-06-27 17:16 | P.PN ---
Subjective This is a pleasant 28 years old FEMALE who presents because of E. coli urinary tract infection and pyelonephritis on the right side, patient is improving with IV antibiotics with less pain in the right flank area and right CVA area. No more fever in the last 24 hours. However patient continued to have recurrent nausea vomiting. No bowel movement for the last 4-5 days. However patient denies abdominal pain or tenderness. Abdominal x-ray: Nonobstructive pattern. Patient was treated with Zofran and Tigan. Continue with IV fluids 06/26/2018 Patient nausea still there but no more vomiting, she still and Tigan and Zofran. She did not eat much today however we can advance diet. She has some burning pain in the chest and chest x-ray showing possible pneumonia, which is suspicious for aspiration and she had frequent vomiting versus atelectasis. Also patient is with no limp. No dyspnea. Her dysuria and right flank pain are improving she has some back discomfort from lying in the bed. Was sent for sputum culture and change antibiotics from subtraction to Zosyn. Keep monitor labs and vitals. Infectious disease input is appreciated 06/27/2018 Patient today was developing more dyspnea, and more on exertion. However her chest pain is improving. She still have, associated with some pain. No more vomiting and her nausea is improving, she is able to eat however she has no appetite. Her dyspnea and right flank pain are also improving. Vitals and labs were reviewed and looks stable. Patient remains on 2 L oxygen via nasal cannula and she is saturating 97%. Rest of Vitas looks stable. We will repeat chest x-ray in the morning.. Patient continued to improve, possible discharge in 24-48 hours. Review of systems CONSTITUTIONAL: No fever, no malaise, no fatigue. HEENT: No recent visual problems or hearing problems. Denied any sore throat. CARDIOVASCULAR: No orthopnea, PND, no palpitations, no syncope. PULMONARY: No shortness of breath, no cough, no hemoptysis. GASTROINTESTINAL: No diarrhea, no nausea, no vomiting, no abdominal pain. Normoactive bowel sounds. NEUROLOGICAL: No headaches, no weakness, no numbness. HEMATOLOGICAL: Denies any bleeding or petechiae. GENITOURINARY: Denies any burning micturition, frequency, or urgency. MUSCULOSKELETAL/RHEUMATOLOGICAL: Denies any joint pain, swelling, or any muscle pain. ENDOCRINE: Denies any polyuria or polydipsia. Medication: Albuterol, Tylenol, Bentyl, Colace, heparin, Dilaudid, Narcan, Zofran, Protonix, Zosyn, Zoloft, visceral, Tigan. Objective - Vital Signs Vital signs: Vital Signs Temp 98.1 F 06/27/18 16:00 Pulse 72 06/27/18 16:36 Resp 16 06/27/18 16:00 BP 130/89 06/27/18 16:00 Pulse Ox 97 06/27/18 16:00 Intake & Output 06/26/18 06/27/18 06/27/18 18:59 06:59 18:59 Other: # Voids 2 5 # Bowel Movements 1 - Exam GENERAL: The patient is alert and oriented x3, not in any acute distress. Well developed, well nourished. HEENT: Pupils are round and equally reacting to light. EOMI. No scleral icterus. No conjunctival pallor. Normocephalic, atraumatic. No pharyngeal erythema. No thyromegaly. CARDIOVASCULAR: S1 and S2 present. No murmurs, rubs, or gallops. PULMONARY: Chest is clear to auscultation, no wheezing or crackles. -ABDOMEN: Soft, right flank tenderness, no rebound tenderness, nondistended, normoactive bowel sounds. No palpable organomegaly. MUSCULOSKELETAL: No joint swelling or deformity. EXTREMITIES: No cyanosis, clubbing, or pedal edema. NEUROLOGICAL: Gross neurological examination did not reveal any focal deficits. SKIN: No rashes. - Labs CBC & Chem 7: 06/27/18 08:31 06/27/18 08:31 Labs: Abnormal Lab Results - Last 24 Hours (Table) 06/27/18 06/27/18 Range/Units 08:31 08:31 RBC 3.27 L (3.80-5.40) m/uL Hgb 11.0 L (11.4-16.0) gm/dL Hct 32.6 L (34.0-46.0) % Chloride 110 H (98-107) mmol/L BUN 6 L (7-17) mg/dL Glucose 112 H (74-99) mg/dL Microbiology - Last 24 Hours (Table) 06/26/18 07:00 Gram Stain - Preliminary Sputum Sputum Culture - Preliminary Assessment and Plan Assessment: E. coli urinary tract infection Right pyelonephritis Possible aspiration pneumonia Recurrent nausea vomiting Constipation History of marijuana abuse. Plan: This is a pleasant 28 years old female presents with UTI and pyelonephritis, recurrent nausea vomiting. Continue with nothing by mouth and then advance diet gradually., Unlikely of distal obstruction. Patient with constipation. Which was started on Colace. And with antibiotics as per infectious disease team recommendation. IV hydration. My plan
[2018-06-27] MEDS: traZODone HCL 100 MG TAB PO SCH (21:34)
[2018-06-27] MEDS: BENZONATATE 100 MG CAP PO PRN (21:36)
--- NOTE | 2018-06-27 23:13 | PN ---
PROGRESS NOTE DATE OF SERVICE: 06/27/2018. REASON FOR FOLLOWUP: E coli bacteremia secondary to UTI and a question of pneumonia. INTERVAL HISTORY: The patient is afebrile. The patient is breathing more comfortably. The patient any chest pain. Occasional cough. Slight nausea, vomiting, or any flank pain. Abdominal pain has improved. No diarrhea. PHYSICAL EXAMINATION: Blood pressure 130/89 with a pulse of 75, temperature 98.1. General description: She is 97% on 2 L nasal cannula. General description is a young female lying in bed in no distress. Respiratory system: Unlabored breathing with decreased BS no wheeze. Heart S1, S2. Regular rate and rhythm noted. LABS: BUN of 11, creatinine 9.4, hemoglobin 16, white count of 0.6. DIAGNOSTIC IMPRESSION AND PLAN: Patient with E coli bacteremia with right-sided pyelonephritis. The patient is currently on clinical improvement and is on Zosyn will continue for now. Waiting for the sputum culture to finalize. Finish therapy with oral antibiotic on discharge. Continue supportive care. MMODL / IJN: [id number] /
[2018-06-28] MEDS: ACETAMINOPHEN TAB 325 MG TAB PO PRN ×2 (04:46→11:02)
--- NOTE | 2018-06-28 08:10 | XR ---
EXAMINATION TYPE: XR chest 2V DATE OF EXAM: 06/28/2018 COMPARISON: 06/26/2018 TECHNIQUE: PA and lateral views submitted. HISTORY: Shortness of breath FINDINGS: There is diffuse predominantly interstitial infiltrate which has a somewhat reticular nodular pattern . Small bilateral effusions and basilar consolidation are noted. Heart size stable. Findings are gricelda lar to the prior exam with persistent more focal area of consolidation left upper lobe which may demo nstrate slight improvement. IMPRESSION: 1. Diffuse lung disease persists diffuse pneumonia including atypical pneumonia or opportunistic infe ction in the differential but. Reticular nodular pattern also includes the possibility of neoplastic process. There may be mild improvement within the left upper lobe more focal area of consolidation re lative to the previous exam otherwise no significant interval change.
[2018-06-28] MEDS: BENZONATATE 100 MG CAP PO PRN (08:36)
[2018-06-28] MEDS: DICYCLOMINE 20 MG TAB PO SCH (08:37)
[2018-06-28] MEDS: SERTRALINE 100 MG TAB PO SCH (08:37)
[2018-06-28] MEDS: PANTOPRAZOLE 40 MG/10 ML VIAL IV SCH (08:37)
[2018-06-28] MEDS: DOCUSATE 100 MG CAP PO SCH (08:37)
[2018-06-28] MEDS: ONDANSETRON 4 MG/2 ML VIAL IVP PRN (08:46)
[2018-06-28] MEDS: HEPARIN SODIUM,PORCINE 5,000 UNIT/ML 1 ML VIAL SQ SCH ×2 (08:47)
[2018-06-28] MEDS: PIPERACILLIN-TAZOBACTAM 3.375 GM in SODIUM CHLORIDE 0.9% 100 ML IVPB SCH ×3 (08:48)
[2018-06-28] MEDS: IPRATROPIUM-ALBUTEROL 3 ML NEB INHALATION SCH ×2 (09:28→13:00)
[2018-06-28] MEDS: NON-FORMULARY DRUG (Phentermine Hcl [Adipex-P] 37.5 MG) PO SCH (10:17)
[2018-06-28 12:25] VITALS: BP 142/99; RESP 18; TEMP 98.1
[2018-06-28 13:12] VITALS: PULSE 82
[2018-06-28 13:37] VITALS: BMI 35.6
--- NOTE | 2018-06-28 17:35 | PN ---
PROGRESS NOTE DATE OF SERVICE: 06/28/2018 REASON FOR FOLLOWUP: E coli UTI and bacteremia. INTERVAL HISTORY: The patient is afebrile. The patient was seen on rounds earlier this afternoon. Patient is feeling much better, breathing comfortably. Denies having any chest pain or shortness of breath. Very minimal cough. No nausea. No vomiting. No abdominal pain. No diarrhea. PHYSICAL EXAMINATION: Blood pressure 142/99 with a pulse of 89, temperature 98.1. She is 97% on room air. General description is a middle-aged female up in the bed in no distress. RESPIRATORY SYSTEM: Unlabored breathing. Clear to auscultation anteriorly. No wheeze or crackle. HEART: S1, S2. Regular rate and rhythm. ABDOMEN: Soft. No tenderness. LABS: Hemoglobin is 11, white count 9.4, BUN of 6, creatinine 0.66. DIAGNOSTIC IMPRESSION AND PLAN: Patient with Escherichia coli bacteremia secondary to right-sided pyelonephritis, failing outpatient oral therapy. The patient has shown overall clinical improvement. Plan is to finish therapy with oral Ceftin 500 mg twice a day for 10 days. Prescription has been sent to the pharmacy. Close outpatient followup. Continue with supportive care. MMODL / IJN: [id number] /
--- NOTE | 2018-07-07 21:14 | P.DS ---
Providers Date of admission: 06/22/18 18:56 Attending physician: Yareli Tucker MD Consults: 06/24/18 00:09 Consult Physician Routine Consulting Provider: Bc Knowles Consult Reason/Comments: Gram-negative bacilli bacteremia and UTI Do you want consulting provider notified?: Yes, Notify in am Primary care physician: Deni Vyas [facility] Course: date of service: 05/02/18 Dx E. coli urinary tract infection Right pyelonephritis Possible aspiration pneumonia abnormal chest xray Recurrent nausea vomiting Constipation History of marijuana abuse. Hospital course This is a pleasant 28 years old FEMALE who presents because of E. coli urinary tract infection and pyelonephritis on the right side, patient is improving with IV antibiotics with pain in the right flank area and right CVA area have resolved completely. No more fever in the last 24 hours. However patient had recurrent nausea vomiting which is treated sympotmatically and pt had no more N/V , she tolerated diet well. pt hospital course was complicated with aspiration pneumonia, her antibiotic was adjusted , ID team were following the pt closely , she showed interval improved and she is back to her baseline. repeat CXR: improved left upper consolidation but there was suspicion for diffuse lung disease with reticulonodular pattern and possibility for neoplastic process, pt and mother at bed side were informed about these finding , risks including but not limited to cancer are explained for the pt and she verbalized understanding and acceptance. appointment with pulmonary clinic is made and she agrees with appointment and it timing and told me she will follow up . on the day of discharge she returned to her baseline with no chest pain no dyspnea, no change in urine or bowel habit , no nausea or vomiting , no abd pain , she is tolerating diet well . no fever Pt was instructed about the problems and management plan and Pt verbalized understanding and acceptance Pt is found stable and can be discharged to the community but needs follow up as outpt. pt agrees with appointments and their timing and stated she will follow up Discharge exam Gen.: Patient alert awake and oriented X 3, NOT IN DISTRESS CVS: s1-s2, RRR, no murmur CHEST:bilateral CTA, no wheezing or crepitation Abdomen: Soft, no tenderness, no distention, positive bowel sounds Extremities: No leg edema or induration time spent : more than 35 min Patient Condition at Discharge: Good Plan - Discharge Summary Discharge Rx Participant: Yes New Discharge Prescriptions: New Cefuroxime Axetil [Ceftin] 500 mg PO BID #20 tab Albuterol Inhaler [Ventolin Hfa Inhaler] 1 - 2 puff INHALATION RT-Q6H PRN #1 inhaler PRN Reason: Shortness Of Breath Or Wheezing Trimethobenzamide HCl [Tigan] 300 mg PO Q12H PRN 2 Days #4 capsule PRN Reason: Nausea And Vomiting Continue Sertraline [Zoloft] 100 mg PO DAILY Phentermine HCl [Adipex-P] 37.5 mg PO QAM traZODone HCL [Desyrel] 100 mg PO HS Ondansetron Odt [Zofran ODT] 4 mg PO Q12HR PRN PRN Reason: Nausea Dicyclomine HCl 20 mg PO TID Discharge Medication List Phentermine HCl [Adipex-P] 37.5 mg PO QAM 09/20/17 [History] Sertraline [Zoloft] 100 mg PO DAILY 09/20/17 [History] traZODone HCL [Desyrel] 100 mg PO HS 09/20/17 [History] Dicyclomine HCl 20 mg PO TID 06/22/18 [History] Ondansetron Odt [Zofran ODT] 4 mg PO Q12HR PRN 06/22/18 [History] Cefuroxime Axetil [Ceftin] 500 mg PO BID #20 tab 06/25/18 [Rx] Albuterol Inhaler [Ventolin Hfa Inhaler] 1 - 2 puff INHALATION RT-Q6H PRN #1 inhaler 06/28/18 [Rx] Trimethobenzamide HCl [Tigan] 300 mg PO Q12H PRN 2 Days #4 capsule 06/28/18 [Rx] Follow up Appointment(s)/Referral(s): Bhupinder Bains MD [STAFF PHYSICIAN] - 07/11/18 10:15 am (You have an appointment with DR Bains on June at 10:15 am.) Asael Cheema MD [Primary Care Provider] - 07/08/18 1:00 pm (You have a follow up appointment with Dr Cheema on Sunday, July 08, 2018 at 10:15 am.) Bc Knowles MD [STAFF PHYSICIAN] - 07/09/18 1:45 pm (You have an appointment with Dr Knowles on Monday, July 09, 2018 at 1:45 pm.) Patient Instructions/Handouts: How to Use a Metered-Dose Inhaler (GEN), Pneumonia (GEN) Activity/Diet/Wound Care/Special Instructions: resume regular diet activity is limited till you see your doctor Discharge Disposition: HOME SELF-CARE
== END 2018-06-28 14:05 | disposition home or self-care (01) | DRG 871 ==
LOC: EC 16:15 → 6PED 18:56
PROVIDERS: ADMIT Internal Medicine; ATTEND Internal Medicine
DX: A41.51 Sepsis due to Escherichia coli [E. coli] (principal); J69.0 Pneumonitis due to inhalation of food and vomit; D68.2 Hereditary deficiency of other clotting factors; N10 Acute pyelonephritis; E66.01 Morbid (severe) obesity due to excess calories; F17.210 Nicotine dependence, cigarettes, uncomplicated; F32.9 Major depressive disorder, single episode, unspecified; F41.9 Anxiety disorder, unspecified; I10 Essential (primary) hypertension; K59.00 Constipation, unspecified; Z68.35 Body mass index [BMI] 35.0-35.9, adult; Z79.899 Other long term (current) drug therapy; Z80.8 Family history of malignant neoplasm of other organs or systems; Z83.2 Family history of diseases of the blood and blood-forming organs and certain disorders involving the immune mechanism; Z87.440 Personal history of urinary (tract) infections; Z91.040 Latex allergy status
CPT/HCPCS: 36415; 71046; 74019; 76770; 80048; 80053; 81001; 81025; 83605; 83735; 85025; 87040; 87070; 87077; 87086; 87186; 87205; 87502; 94640; 94760; 96361; 96365; 96375; 99284

== ENCOUNTER → 2019-01-02 | Outpatient (CLI) | payer OTHER ==
[2019-01-02 14:55] LABS: HCT 38.2 % (34.0-46.0); MCH 33.3 pg (25.0-35.0); Mean Platelet Volume 7.4; Platelet Count 299 k/uL (150-450); RDW 13.5 % (11.5-15.5); WBC 7.1 k/uL (3.8-10.6)
[2019-01-02 16:10] LABS: Erythrocyte Sedimentation Rate 16 mm/hr (0-20)
[2019-01-02 19:38] LABS: African American GFR (CKD) 117.9 (60.0-200.0); Albumin 4.5 g/dL (3.80-4.90); Albumin/Globulin Ratio 2.05 (1.60-3.17); BUN/Creat Ratio 8.75 Ratio (12.00-20.00); C Reactive Protein 0.5 mg/dL (0.0-0.8); Globulin 2.2 g/dL (1.6-3.3); Potassium 4.3 mmol/L (3.5-5.5); Total Bilirubin 0.6 mg/dL (0.3-1.2); Total Protein 6.7 g/dL (6.2-8.2)
== END | disposition home or self-care (01) ==
LOC: LABWHC1 14:23
PROVIDERS: ATTEND Physician Assistant
DX: K62.9 Disease of anus and rectum, unspecified (principal)
CPT/HCPCS: 36415; 80053; 85027; 85652; 86140

== ENCOUNTER → 2019-01-29 | Day surgery (SDC) | payer OTHER ==
[2019-01-24 15:43] VITALS: BMI 33.8
[~2019-01-29] MED LIST changes: +LIDOCAINE 1% 20 ML VIAL (10MG/ML) FOR IV START INTRADERMA PRN; +LIDOCAINE 1% INJ 10MG/ML (20 ML MDV) ONE; +PROPOFOL 10 MG/ML 20 ML VIAL IV ONE
[2019-01-29 11:37] VITALS: RESP 16; TEMP 97.1
--- NOTE | 2019-01-29 12:27 | P.PCN ---
Date of Procedure: 01/29/19 Procedure(s) Performed: BRIEF HISTORY: Patient is a 28-year-old pleasant white female scheduled for an elective colonoscopy as a part of evaluation of intermittent rectal bleeding for the last 1 week duration. His 2-3 soft bowel movements daily with occasional blood or mucus in the stool. PROCEDURE PERFORMED: Colonoscopy. PREOPERATIVE DIAGNOSIS: Rectal Bleeding of 1 year duration. IV sedation per Anesthesia. PROCEDURE: After informed consent was obtained, the patient, was brought into the endoscopy unit. IV sedation was administered by Anesthesia under continuous monitoring. Digital rectal examination was normal. Initially the Olympus CF-160 flexible video colonoscope was then inserted in the rectum, gradually advanced into the cecum without any difficulty. Careful examination was performed as the scope was gradually being withdrawn. Ileocecal valve and the appendiceal orifice were visualized and appeared normal. Prep was poor in the right colon. Irrigation was performed. Terminal ileum was intubated and 10 cm visualized appeared normal. Mucosa of the cecum, ascending colon, transverse colon, descending colon, sigmoid colon, and rectum appeared normal. Retroflexion was performed in the rectum and all internal hemorrhoids were seen. The patient tolerated the procedure well. IMPRESSION: Small internal hemorrhoids No evidence of colitis or colorectal neoplasia RECOMMENDATIONS: Findings of this examination were discussed with the patient as well as a family. She was advised to be a high-fiber diet and take fiber supplements a regular basis..
[2019-01-29 12:57] VITALS: BP 107/66; PULSE 82
== END ==
LOC: ORWHC2ENDO 10:41
PROVIDERS: ATTEND Internal Medicine Gastroenterology
DX: K64.8 Other hemorrhoids (principal); F32.9 Major depressive disorder, single episode, unspecified; K21.9 Gastro-esophageal reflux disease without esophagitis; Z98.890 Other specified postprocedural states; Z79.51 Long term (current) use of inhaled steroids; Z79.899 Other long term (current) drug therapy; Z91.040 Latex allergy status; Z88.5 Allergy status to narcotic agent; Z88.1 Allergy status to other antibiotic agents
CPT/HCPCS: 81025; 45378; J2001; J2704

== ENCOUNTER → 2019-09-11 | Outpatient (CLI) | payer OTHER ==
--- NOTE | 2019-09-11 18:49 | MR ---
EXAMINATION TYPE: MR knee RT wo con DATE OF EXAM: 09/11/2019 COMPARISON: none HISTORY: Rt knee pain x 10 months, no history of trauma TECHNIQUE: Multiplanar, multisequence images of the knee is performed without IV contrast. FINDINGS: MEDIAL MENISCUS: Anterior and posterior horns are intact without tear. LATERAL MENISCUS: Anterior and posterior horns are intact without tear. CRUCIATE LIGAMENTS: The anterior and posterior cruciate ligaments are intact and unremarkable. COLLATERAL LIGAMENTS: The medial collateral ligament and lateral collateral ligament complex are inta ct and unremarkable. EXTENSOR MECHANISM: Visualized quadriceps and patellar tendons are intact. EFFUSION: No significant suprapatellar joint effusion. POPLITEAL CYST: No popliteal/aaron cyst. TRICOMPARTMENT SPACES: Preserved CARTILAGE: No significant thinning is evident. BONE MARROW SIGNAL: No focal abnormal marrow signal is appreciated. OTHER: No additional significant abnormality is appreciated. IMPRESSION: No suspicious acute abnormality MRI right knee
== END | disposition home or self-care (01) ==
LOC: RADMRIMAIN 15:31
PROVIDERS: ATTEND Orthopaedic Surgery
DX: M25.561 Pain in right knee (principal)

== ENCOUNTER → 2019-10-16 | Outpatient (CLI) | payer OTHER ==
--- NOTE | 2019-10-16 08:58 | CT ---
EXAMINATION TYPE: CT foot RT wo con DATE OF EXAM: 10/16/2019 COMPARISON: None HISTORY: 29-year-old female S93.699D, right midfoot sprain, Right mid foot pain TECHNIQUE: Contiguous axial scanning of the right foot without IV contrast. Coronal and sagittal eduardo nstructions performed. Reconstructions generated on a dedicated independent workstation. CT DLP: 212.8 mGycm Automated exposure control for dose reduction was used. FINDINGS: Tiny 3 mm trina of bone along the dorsolateral aspect of the fourth TMT joint. Minimally distracted oblique fracture measuring 1.1 x 0.4 cm along the dorsal base of the fifth metat arsal. Some mild adjacent soft tissue swelling remains. No midfoot malalignment No additional acute fracture, subluxation, dislocation seen. Os trigonum. Achilles tendon intact. IMPRESSION: 1. MINIMALLY DISTRACTED OBLIQUE FRACTURE MEASURING 1.1 X 0.4 CM ALONG THE DORSAL BASE OF THE FIFTH ME TATARSAL. 2. TINY 3 MM CHIP FRACTURE ALONG THE DORSAL LATERAL ASPECT OF THE FOURTH TMT JOINT.
== END | disposition home or self-care (01) ==
LOC: RADCTMAIN 07:01
PROVIDERS: ATTEND Orthopaedic Surgery
DX: S92.351A Displaced fracture of fifth metatarsal bone, right foot, initial encounter for closed fracture (principal); S93.69 Other sprain of foot

== ENCOUNTER 2020-08-11 12:13 | Emergency (ER) | payer OTHER ==
[2020-08-11 12:30] VITALS: BP 125/80; PULSE 113; RESP 18; TEMP 98.4
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
== END 2020-08-11 13:16 | disposition home or self-care (01) ==
LOC: EC 12:13
DX: R22.41 Localized swelling, mass and lump, right lower limb (principal); F41.9 Anxiety disorder, unspecified; F32.9 Major depressive disorder, single episode, unspecified; I10 Essential (primary) hypertension; F17.200 Nicotine dependence, unspecified, uncomplicated; Z79.899 Other long term (current) drug therapy; Z91.040 Latex allergy status; Z91.048 Other nonmedicinal substance allergy status; Z88.5 Allergy status to narcotic agent; Z88.1 Allergy status to other antibiotic agents
CPT/HCPCS: 99283

== ENCOUNTER 2023-01-16 10:41 | Emergency (ER) | payer OTHER ==
[2023-01-16 11:11] VITALS: TEMP 98.3
[2023-01-16] MEDS ORDERED: ONDANSETRON 4 MG/2 ML VIAL IVP STA (11:21)
[2023-01-16] MEDS ORDERED: KETOROLAC 15 MG/ML 1 ML VIAL IVP STA (11:21)
[2023-01-16] MEDS ORDERED: SODIUM CHLORIDE 0.9% 1,000 ML IV ONE (11:21)
[2023-01-16] MEDS ORDERED: FAMOTIDINE 20 MG/2 ML VIAL IV STA (11:21)
[2023-01-16 12:05] LABS: Anisocytosis Slight; Basophils % (A) 0 %; Eosinophils # (A) 0.2 k/uL (0-0.7); Eosinophils % (A) 2 %; HCT 35.4 % (34.0-46.0); HGB 12.1 gm/dL (11.4-16.0); Lymphocytes # (A) 1.5 k/uL (1.0-4.8); Lymphocytes % (A) 19 %; MCH 31.6 pg (25.0-35.0); MCHC 34.1 g/dL (31.0-37.0); MCV 92.5 fL (80.0-100.0); Mean Platelet Volume 7.8; Monocytes # (A) 0.4 k/uL (0-1.0); Monocytes % (A) 5 %; Neutrophils % (A) 73 %; Platelet Count 321 k/uL (150-450); RBC 3.82 m/uL (3.80-5.40); RDW 16.2 % (11.5-15.5); WBC 8.3 k/uL (3.8-10.6)
[2023-01-16 12:08] LABS: ALT 46 U/L (4-34); AST 23 U/L (14-36); African American GFR (CKD) >90 (>60 ml/min/1.73 sqM); Albumin 4.2 g/dL (3.5-5.0); Alkaline Phosphatase 103 U/L (38-126); Anion Gap 9 mmol/L; Blood Urea Nitrogen 6 mg/dL (7-17); Carbon Dioxide 25 mmol/L (22-30); Chloride 108 mmol/L (98-107); Glucose 100 mg/dL (74-99); Non-African American GFR(CKD) >90 (>60 ml/min/1.73 sqM); Potassium 4.3 mmol/L (3.5-5.1); Sodium 142 mmol/L (137-145); Total Bilirubin 0.9 mg/dL (0.2-1.3); Total Protein 7.8 g/dL (6.3-8.2)
[2023-01-16] MEDS ORDERED: DICYCLOMINE 10 MG/ML 2 ML AMP IM STA (14:13)
--- NOTE | 2023-01-16 14:24 | CT ---
EXAMINATION TYPE: CT abdomen pelvis w con DATE OF EXAM: 01/16/2023 COMPARISON: 03/31/2018 HISTORY: Diverticulosis CT DLP: 1607.2 mGycm Automated exposure control for dose reduction was used. CONTRAST: CT scan of the abdomen pelvis is performed with IV Contrast, patient injected with 100 ml mL of Isovu e 300. FINDINGS- LUNG BASES- bibasilar atelectasis LIVER/GB- 6 mm hypodensity left lobe liver is stable relative to 12,018 indeterminate by Hounsfield unit measurement. Liver reduced diffusely compatible with atelectasis is PANCREAS- No gross abnormality is seen. SPLEEN- tiny splenic granuloma. ADRENALS- No gross abnormality is seen. KIDNEYS/BLADDER- no hydronephrosis nephrolithiasis or renal mass. BOWEL- there is extensive sigmoid diverticulosis with pericolonic and demonstrate change compatible with acute diverticulitis. There is a small hiatal hernia. Appendix normal. LYMPH NODES- stable appearing 1.1 cm soft tissue density in the peripancreatic pericaval region unch anged from prior exam. OSSEOUS STRUCTURES- No significant abnormality is seen. OTHER- there is a fat-containing periumbilical hernia. 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 IMPRESSION- 1. Acute sigmoid diverticulitis with no evidence of sizable abscess or free air.
--- NOTE | 2023-01-16 14:40 | ED ---
General Adult HPI - General Chief complaint: Abdominal Pain Stated complaint: Diverticulosis Time Seen by Provider: 01/16/23 11:15 Source: patient, RN notes reviewed Mode of arrival: ambulatory Limitations: no limitations - History of Present Illness Initial comments: 32-year-old female with a past medical history significant for diverticulosis presents the emergency department with generalized abdominal pain. She reports worsening crampy abdominal pain for the last 2 weeks. She reports worsening bright red mucousy sputum for the last 2 days however she reports that this is usually normal for her. She denies any known fevers, cough, chills, chest pain, shortness of breath, nausea, vomiting. Patient is concerned that she may have diverticulitis. - Related Data Home Medications Medication Instructions Recorded Confirmed Sertraline [Zoloft] 100 mg PO DAILY 09/20/17 01/29/19 traZODone HCL [Desyrel] 100 mg PO HS 09/20/17 01/29/19 Ondansetron Odt [Zofran ODT] 4 mg PO Q12HR PRN 06/22/18 01/29/19 Omeprazole [PriLOSEC] 40 mg PO DAILY 01/29/19 01/29/19 Previous Rx's Medication Instructions Recorded Albuterol Inhaler [Ventolin Hfa 1 - 2 puff INHALATION RT-Q6H PRN 06/28/18 Inhaler] #1 inhaler Amoxic-Pot Clav 875-125Mg 1 tab PO Q12HR #28 tab 01/16/23 [Augmentin 875-125] Dicyclomine [Bentyl] 20 mg PO TID #30 tablet 01/16/23 Allergies Allergy/AdvReac Type Severity Reaction Status Date / Time adhesive Allergy Rash/Hives Verified 01/16/23 11:06 latex Allergy Rash/Hives Verified 01/16/23 11:06 codeine AdvReac Nausea & Verified 01/16/23 11:06 Vomiting metronidazole [From Flagyl] AdvReac Nausea & Verified 01/16/23 11:06 Vomiting Review of Systems ROS Statement: Those systems with pertinent positive or pertinent negative responses have been documented in the HPI. ROS Other: All systems not noted in ROS Statement are negative. Past Medical History Past Medical History: Blood Disorder, Hypertension Additional Past Medical History / Comment(s): FREQUENT DIARRHEA AND BLOOD IN STOOL- diverticulitis, MTHFR, HX Back pain, miscarriage x4. 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, RT BREAST BENIGN CYST Past Anesthesia/Blood Transfusion Reactions: Motion Sickness, Postoperative Nausea & Vomiting (PONV) Additional Past Anesthesia/Blood Transfusion Reaction / Comment(s): no hx blood transfusion Past Psychological History: Anxiety, Depression Smoking Status: Current every day smoker Past Alcohol Use History: None Reported Past Drug Use History: Marijuana - Past Family History Mother Family Medical History: Cancer Additional Family Medical History / Comment(s): skin cancer FATHER Family Medical History: Cancer, Deep Vein Thrombosis (DVT) Additional Family Medical History / Comment(s): skin cancer General Exam - General Exam Comments Initial Comments: General: Alert, in no acute distress Head: atraumatic normocephalic. Eyes PERRL, EOMI intact, mucous membranes moist Respiratory: Lungs clear to auscultation bilaterally Cardiovascular: Heart rate regular rate Abdominal: Soft without guarding or rebound, generalized tenderness Extremities: Normal inspection with full range of motion and normal capillary refill Neuroogic: alert and oriented 3, CN II-XII intact, able to ambulate with steady gait Skin: warm dry and intact with normal color Limitations: no limitations Course Vital Signs 01/16/23 01/16/23 11:06 15:26 Temperature 98.3 F Pulse Rate 80 70 Respiratory 16 18 Rate Blood Pressure 126/63 108/65 O2 Sat by Pulse 100 95 Oximetry Medical Decision Making - Medical Decision Making Was pt. sent in by a medical professional or institution (, PA, AGRICULTURAL RESEARCH TECHNICIAN, urgent care, hospital, or fci...) When possible be specific @ -[No] Did you speak to anyone other than the patient for history (EMS, parent, family, police, friend...)? What history was obtained from this source @ -[No] Did you review nursing and triage notes (agree or disagree)? Why? @ -[I reviewed and agree with nursing and triage notes] Were old charts reviewed (outside hosp., previous admission, EMS record, old EKG, old radiological studies, urgent care reports/EKG's, fci records)? Report findings @ -[No old charts were reviewed] Differential Diagnosis (chest pain, altered mental status, abdominal pain women, abdominal pain men, vaginal bleeding, weakness, fever, dyspnea, syncope, headache, dizziness, GI bleed, back pain, seizure, CVA, palpatations, mental health, musculoskeletal)? @ -[not applicable] EKG interpreted by me (3pts min.). @ -[As above] X-rays interpreted by me (1pt min.). @ -[None done] CT interpreted by me (1pt min.). @ yes U/S interpreted by me (1pt. min.). @ -[None done] What testing was considered but not performed or refused? (CT, X-rays, U/S, labs)? Why? @ -[None] What meds were considered but not given or refused? Why? @ -[None] Did you discuss the management of the patient with other professionals (professionals i.e. , PA, AGRICULTURAL RESEARCH TECHNICIAN, lab, RT, psych nurse, social media marketing manager, exhaust and muffler repairer, teacher, administrative hearing officer, caseworker)? Give summary @ -[No] Was smoking cessation discussed for >3mins.? @ -[No] Was critical care preformed (if so, how long)? @ -[No] Were there social determinants of health that impacted care today? How? (Homelessness, low income, unemployed, alcoholism, drug addiction, transportation, low edu. Level, literacy, decrease access to med. care, long-term, rehab)? @ -[No] Was there de-escalation of care discussed even if they declined (Discuss DNR or withdrawal of care, Hospice)? DNR status @ -[No] What co-morbidities impacted this encounter? (DM, HTN, Smoking, COPD, CAD, Cancer, CVA, ARF, Chemo, Hep., AIDS, mental health diagnosis, sleep apnea, morbid obesity)? @ -[None] Was patient admitted / discharged? Hospital course, mention meds given and route, prescriptions, significant lab abnormalities, going to OR and other pertinent info. @ -Discharge. This is a pleasant 32-year-old female presents to the emergency department with abdominal pain. Patient with a history and physical e xam performed. Patient afebrile. Generalized abdominal tenderness. Patient had blood work which revealed WBC 18.3, hemoglobin 12.1, sodium 142, potassium 4.8 BUN 6, creatinine 0.76, lactic acid 1.0 Urine negative stool occult negative. Covid influenza RSV negative CT results reveals acute sigmoid diverticulitis without evidence of sizable abscess or free air I discussed the results in detail with the patient verbalized understanding and all questions were addressed. Patient was given Toradol Pepcid, Zofran with symptomatic relief. She was given Bentyl with improvement of symptoms. She'll be discharged home with Augmentin. Recommend close follow-up with PCP in 1-2 days. Case is discussed with [facility] So who agrees with plan of care Undiagnosed new problem with uncertain prognosis? @ -[No] Drug Therapy requiring intensive monitoring for toxicity (Heparin, Nitro, Insulin, Cardizem)? @ -[No] Were any procedures done? @ -[No] Diagnosis/symptom? @ -Abdominal Pain - Diverticulitis Acute, or Chronic, or Acute on Chronic? @ -Acute Uncomplicated (without systemic symptoms) or Complicated (systemic symptoms)? @ -Uncomplicated Side effects of treatment? @ -[No] Exacerbation, Progression, or Severe Exacerbation? @ -[No] Poses a threat to life or bodily function? How? (Chest pain, [place], [place], pneumonia, PE, COPD, DKA, ARF, appy, cholecystitis, CVA, Diverticulitis, Homicidal, Suicidal, threat to staff... and all critical care pts) @ -Low likelihood - Lab Data Result diagrams: 01/16/23 11:30 01/16/23 11:30 Lab Results 01/16/23 01/16/23 01/16/23 Range/Units 11:30 11:30 11:30 WBC 8.3 (3.8-10.6) k/uL RBC 3.82 (3.80-5.40) m/uL Hgb 12.1 (11.4-16.0) gm/dL Hct 35.4 (34.0-46.0) % MCV 92.5 (80.0-100.0) fL MCH 31.6 (25.0-35.0) pg MCHC 34.1 (31.0-37.0) g/dL RDW 16.2 H (11.5-15.5) % Plt Count 321 (150-450) k/uL MPV 7.8 Neutrophils % 73 % Lymphocytes % 19 % Monocytes % 5 % Eosinophils % 2 % Basophils % 0 % Neutrophils # 6.0 (1.3-7.7) k/uL Lymphocytes # 1.5 (1.0-4.8) k/uL Monocytes # 0.4 (0-1.0) k/uL Eosinophils # 0.2 (0-0.7) k/uL Basophils # 0.0 (0-0.2) k/uL Anisocytosis Slight Sodium 142 (137-145) mmol/L Potassium 4.3 (3.5-5.1) mmol/L Chloride 108 H (98-107) mmol/L Carbon Dioxide 25 (22-30) mmol/L Anion Gap 9 mmol/L BUN 6 L (7-17) mg/dL Creatinine 0.76 (0.52-1.04) mg/dL Est GFR (CKD-EPI)AfAm >90 (>60 ml/min/1.73 sqM) Est GFR (CKD-EPI)NonAf >90 (>60 ml/min/1.73 sqM) Glucose 100 H (74-99) mg/dL Plasma Lactic Acid Del 1.0 (0.7-2.0) mmol/L Calcium 9.0 (8.4-10.2) mg/dL Total Bilirubin 0.9 (0.2-1.3) mg/dL AST 23 (14-36) U/L ALT 46 H (4-34) U/L Alkaline Phosphatase 103 (38-126) U/L Total Protein 7.8 (6.3-8.2) g/dL Albumin 4.2 (3.5-5.0) g/dL Urine HCG, Qual (Not Detectd) Stool Occult Blood (Negative) Influenza Type A (PCR) (Not Detectd) Influenza Type B (PCR) (Not Detectd) RSV (PCR) (Not Detectd) SARS-CoV-2 (PCR) (Not Detectd) 01/16/23 01/16/23 01/16/23 Range/Units 11:30 11:30 11:30 WBC (3.8-10.6) k/uL RBC (3.80-5.40) m/uL Hgb (11.4-16.0) gm/dL Hct (34.0-46.0) % MCV (80.0-100.0) fL MCH (25.0-35.0) pg MCHC (31.0-37.0) g/dL RDW (11.5-15.5) % Plt Count (150-450) k/uL MPV Neutrophils % % Lymphocytes % % Monocytes % % Eosinophils % % Basophils % % Neutrophils # (1.3-7.7) k/uL Lymphocytes # (1.0-4.8) k/uL Monocytes # (0-1.0) k/uL Eosinophils # (0-0.7) k/uL Basophils # (0-0.2) k/uL Anisocytosis Sodium (137-145) mmol/L Potassium (3.5-5.1) mmol/L Chloride (98-107) mmol/L Carbon Dioxide (22-30) mmol/L Anion Gap mmol/L BUN (7-17) mg/dL Creatinine (0.52-1.04) mg/dL Est GFR (CKD-EPI)AfAm (>60 ml/min/1.73 sqM) Est GFR (CKD-EPI)NonAf (>60 ml/min/1.73 sqM) Glucose (74-99) mg/dL Plasma Lactic Acid Del (0.7-2.0) mmol/L Calcium (8.4-10.2) mg/dL Total Bilirubin (0.2-1.3) mg/dL AST (14-36) U/L ALT (4-34) U/L Alkaline Phosphatase (38-126) U/L Total Protein (6.3-8.2) g/dL Albumin (3.5-5.0) g/dL Urine HCG, Qual Not Detected (Not Detectd) Stool Occult Blood Negative (Negative) Influenza Type A (PCR) Not Detected (Not Detectd) Influenza Type B (PCR) Not Detected (Not Detectd) RSV (PCR) Not Detected (Not Detectd) SARS-CoV-2 (PCR) Not Detected (Not Detectd) Disposition Clinical Impression: Abdominal pain, Diverticulitis Disposition: HOME SELF-CARE Condition: Stable Additional Instructions: Please take the antibiotics as prescribed Please return to return to the nearest emergency department if fever, dizziness, lightheadedness develop Prescriptions: Amoxic-Pot Clav 875-125Mg [Augmentin 875-125] 1 tab PO Q12HR #28 tab Dicyclomine [Bentyl] 20 mg PO TID #30 tablet Is patient prescribed a controlled substance at d/c from ED?: No Referrals: Brian Rogers MD [Primary Care Provider] - 1-2 days Madelin Carmichael MD [STAFF PHYSICIAN] - 1-2 days Time of Disposition: 14:40
[2023-01-16] MEDS ORDERED: AMOXIC-POT CLAV 875-125MG 1 EACH TAB PO STA (15:13)
[2023-01-16 15:31] VITALS: BP 108/65; PULSE 70; RESP 18
== END 2023-01-16 15:28 | disposition home or self-care (01) ==
LOC: EC 10:41
DX: K57.32 Diverticulitis of large intestine without perforation or abscess without bleeding (principal); I10 Essential (primary) hypertension; F32.A Depression, unspecified; F41.9 Anxiety disorder, unspecified; F17.200 Nicotine dependence, unspecified, uncomplicated; F12.90 Cannabis use, unspecified, uncomplicated; Z20.822 Contact with and (suspected) exposure to COVID-19; Z79.899 Other long term (current) drug therapy; Z88.1 Allergy status to other antibiotic agents; Z88.5 Allergy status to narcotic agent; Z91.040 Latex allergy status; Z91.09 Other allergy status, other than to drugs and biological substances
CPT/HCPCS: 36415; 80053; 83605; 85025; 82272; 81025; 87636; 74177; 99284; 96374; 96375 ×2; 96361; 96372; J0500; J2405; J3490; J1885; Q9967

== ENCOUNTER 2023-10-31 14:36 | Emergency (ER) | payer OTHER ==
[2023-10-31 14:40] VITALS: RESP 20
--- NOTE | 2023-10-31 15:06 | ED ---
General Adult HPI - General Source: patient Mode of arrival: ambulatory Limitations: no limitations - History of Present Illness -: days(s) Location: genitals Quality: aching Consistency: constant Improves with: none Worsens with: other (Palpation) Associated Symptoms: denies other symptoms Treatments Prior to Arrival: none <Rosalino Choudhury - Last Filed: 10/31/23 15:02> - General Source: RN notes reviewed <Belia Carlos - Last Filed: 10/31/23 18:22> - General Chief complaint: Skin/Abscess/Foreign Body Stated complaint: cyst that needs to be drained Time Seen by Provider: 10/31/23 14:52 - History of Present Illness Initial comments: This patient is a 33-year-old woman who presents to have evaluation of what she believes is Bartholin cyst of the left labia. The patient states she had similar couple of months ago and saw her repair miller for this. She states that things had resolved but now over the past few days she has had swelling and now the cyst is large enough that she cannot sit properly. She was not able to get in with her repair miller so she presents here. She has not noted any systemic symptoms no fever or chills. No chest pain, palpitations dyspnea. There is no abdominal pain or dysuria. (MaceyRosalino) Is a 33-year-old female presents emergency department chief complaint of potential Bartholin cyst of the left labia. Patient states that she saw her oncologist for this and was instructed to continue supportive treatment at home using sitz bath's. She states that over the past few weeks the swelling has enlarged. States that she has been having symptoms of dysuria and increasing urinary frequency, denies hematuria. She denies fevers, chills. Was originally evaluated by my attending however due to comfort would like to proceed with a female provider. (Belia Carlos) - Related Data Home Medications Medication Instructions Recorded Confirmed Sertraline [Zoloft] 100 mg PO DAILY 09/20/17 01/29/19 traZODone HCL [Desyrel] 100 mg PO HS 09/20/17 01/29/19 Ondansetron Odt [Zofran ODT] 4 mg PO Q12HR PRN 06/22/18 01/29/19 Omeprazole [PriLOSEC] 40 mg PO DAILY 01/29/19 01/29/19 Previous Rx's Medication Instructions Recorded Albuterol Inhaler [Ventolin Hfa 1 - 2 puff INHALATION RT-Q6H PRN 06/28/18 Inhaler] #1 inhaler Amoxic-Pot Clav 875-125Mg 1 tab PO Q12HR #28 tab 01/16/23 [Augmentin 875-125] Dicyclomine [Bentyl] 20 mg PO TID #30 tablet 01/16/23 Allergies Allergy/AdvReac Type Severity Reaction Status Date / Time adhesive Allergy Rash/Hives Verified 10/31/23 14:40 latex Allergy Rash/Hives Verified 10/31/23 14:40 codeine AdvReac Nausea & Verified 10/31/23 14:40 Vomiting metronidazole [From Flagyl] AdvReac Nausea & Verified 10/31/23 14:40 Vomiting Review of Systems ROS Other: All systems not noted in ROS Statement are negative. Constitutional: Denies: fever, chills Respiratory: Denies: cough, dyspnea, wheezes Cardiovascular: Denies: chest pain, palpitations Gastrointestinal: Denies: abdominal pain, nausea, vomiting, diarrhea Genitourinary: Denies: urgency, dysuria, frequency, discharge Musculoskeletal: Denies: back pain Skin: Reports: as per HPI <Rosalino Choudhury - Last Filed: 10/31/23 15:02> ROS Other: All systems not noted in ROS Statement are negative. <Belia Carlos - Last Filed: 10/31/23 18:22> ROS Statement: Those systems with pertinent positive or pertinent negative responses have been documented in the HPI. Past Medical History Past Medical History: Blood Disorder, Hypertension Additional Past Medical History / Comment(s): FREQUENT DIARRHEA AND BLOOD IN STOOL- diverticulitis, MTHFR, HX Back pain, miscarriage x4. 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, RT BREAST BENIGN CYST Past Anesthesia/Blood Transfusion Reactions: Motion Sickness, Postoperative Nausea & Vomiting (PONV) Additional Past Anesthesia/Blood Transfusion Reaction / Comment(s): no hx blood transfusion Past Psychological History: Anxiety, Depression Smoking Status: Current every day smoker Past Alcohol Use History: None Reported Past Drug Use History: Marijuana - Past Family History Mother Family Medical History: Cancer Additional Family Medical History / Comment(s): skin cancer FATHER Family Medical History: Cancer, Deep Vein Thrombosis (DVT) Additional Family Medical History / Comment(s): skin cancer <Rosalino Choudhury - Filed: 10/31/23 15:02> General Exam Limitations: no limitations General appearance: alert, in no apparent distress Respiratory exam: Present: normal lung sounds bilaterally. Absent: respiratory distress, wheezes, rales, rhonchi, stridor, accessory muscle use Cardiovascular Exam: Present: regular rate, normal rhythm, normal heart sounds. Absent: systolic murmur, diastolic murmur, rubs, gallop GI/Abdominal exam: Present: soft. Absent: distended, tenderness, guarding, rebound Skin exam: Present: warm, dry, intact, normal color. Absent: rash <Rosalino Choudhury - Filed: 10/31/23 15:02> General appearance: alert, in no apparent distress Head exam: Present: atraumatic, normocephalic, normal inspection Eye exam: Present: normal appearance, PERRL, EOMI. Absent: scleral icterus, conjunctival injection, periorbital swelling ENT exam: Present: normal exam, mucous membranes moist Neck exam: Present: normal inspection. Absent: tenderness, meningismus, lymphadenopathy Respiratory exam: Present: normal lung sounds bilaterally. Absent: respiratory distress, wheezes, rales, rhonchi, stridor Cardiovascular Exam: Present: regular rate, normal rhythm, normal heart sounds. Absent: systolic murmur, diastolic murmur, rubs, gallop, clicks GI/Abdominal exam: Present: soft, normal bowel sounds. Absent: distended, tenderness, guarding, rebound, rigid External exam: Present: swelling (left inferior labia with palpable cyst, no signs of purulent drainage) Speculum exam: Present: normal speculum exam. Absent: vaginal discharge By manual exam: Present: normal by manual exam Extremities exam: Present: normal inspection, full ROM, normal capillary refill. Absent: tenderness, pedal edema, joint swelling, calf tenderness Back exam: Present: normal inspection Neurological exam: Present: alert, oriented X3, CN II-XII intact Skin exam: Present: warm, dry, intact, normal color. Absent: rash <Stieler,Belia - Last Filed: 10/31/23 18:22> Course Vital Signs 10/31/23 10/31/23 10/31/23 14:37 16:20 17:08 Temperature 97.8 F 98 F 97.9 F Pulse Rate 106 H 101 H 98 Respiratory 20 20 20 Rate Blood Pressure 143/89 140/87 137/83 O2 Sat by Pulse 100 99 100 Oximetry Medical Decision Making <Belia Carlos - Last Filed: 10/31/23 18:22> - Medical Decision Making Was pt. sent in by a medical professional or institution (, PA, FOREST ENGINEER, urgent care, hospital, or usp...) When possible be specific @ -No Did you speak to anyone other than the patient for history (EMS, parent, family, police, friend...)? What history was obtained from this source @ -No Did you review nursing and triage notes (agree or disagree)? Why? @ -I reviewed and agree with nursing and triage notes Were old charts reviewed (outside hosp., previous admission, EMS record, old EKG, old radiological studies, urgent care reports/EKG's, usp records)? Report findings @ -No old charts were reviewed Differential Diagnosis (chest pain, altered mental status, abdominal pain women, abdominal pain men, vaginal bleeding, weakness, fever, dyspnea, syncope, headache, dizziness, GI bleed, back pain, seizure, CVA, palpatations, mental health, musculoskeletal)? @ -Differential Abdominal Pain Women: Appendicitis, Cholecystitis, diverticulosis, ischemic bowel, pancreatitis, hepatitis, UTI, gastroenteritis, AAA, incarcerated hernia, bowel obstruction, constipation, inflammatory bowel, hepatitis, peptic ulcer disease, splenic infarction, perforated viscus, vulvitis, ovarian torsion, PID, kidney stone, pl acenta abruption, this is not meant to be an all-inclusive list EKG interpreted by me (3pts min.). @ -None X-rays interpreted by me (1pt min.). @ -None done CT interpreted by me (1pt min.). @ -None done U/S interpreted by me (1pt. min.). @ -None done What testing was considered but not performed or refused? (CT, X-rays, U/S, labs)? Why? @ -None What meds were considered but not given or refused? Why? @ -None Did you discuss the management of the patient with other professionals (professionals i.e. Dr., PA, FOREST ENGINEER, lab, RT, psych nurse, social services specialist, concrete crusher loader operator, teacher, sales promotion officer, block and case maker)? Give summary @ -No Was smoking cessation discussed for >3mins.? @ -No Was critical care preformed (if so, how long)? @ -No Were there social determinants of health that impacted care today? How? (Ho melessness, low income, unemployed, alcoholism, drug addiction, transportation, low edu. Level, literacy, decrease access to med. care, fci, rehab)? @ -No Was there de-escalation of care discussed even if they declined (Discuss DNR or withdrawal of care, Hospice)? DNR status @ -No What co-morbidities impacted this encounter? (DM, HTN, Smoking, COPD, CAD, Cancer, CVA, ARF, Chemo, Hep., AIDS, mental health diagnosis, sleep apnea, morbid obesity)? @ -None Was patient admitted / discharged? Hospital course, mention meds given and route, prescriptions, significant lab abnormalities, going to OR and other pertinent info. @ -Discharge. 33-year-old female with possible Bartholin cyst. Patient was originally evaluated by my attending however due to comfort would like to proceed with a female provider. Patient was noted to have a left inferior labial cyst with no signs of active drainage or purulence. Area was cleansed with Betadine and numbed with 1% lidocaine. Attempted incision and drainage with 11 blade was unsuccessful. Additionally patient's urinalysis unremarkable for signs of infection, revealed squamous epithelial cells which are consistent with contamination. Recommend that patient calls OB office to schedule follow- up appointment further evaluation. All questions answered at bedside and strict return parameters discussed with the patient who is verbalized understanding. Case discussed with Dr. Choudhury Undiagnosed new problem with uncertain prognosis? @ -No Drug Therapy requiring intensive monitoring for toxicity (Heparin, Nitro, Insulin, Cardizem)? @ -No Were any procedures done? @ -attempted incision and drainage of Bartholin cyst was unsuccessful. Blood was obtained, no purulent drainage and insertion of catheter was not placed. Diagnosis/symptom? @ -bartholin cyst Acute, or Chronic, or Acute on Chronic? @ -acute Uncomplicated (without systemic symptoms) or Complicated (systemic symptoms)? @ -uncomplicated Side effects of treatment? @ -No Exacerbation, Progression, or Severe Exacerbation? @ -No Poses a threat to life or bodily function? How? (Chest pain, [place], [place], pneumonia, PE, COPD, DKA, ARF, appy, cholecystitis, CVA, Diverticulitis, Homicidal, [place] icidal, threat to staff... and all critical care pts) @ -No (Belia Carlos) - Lab Data Lab Results 10/31/23 Range/Units 16:11 Urine Color Yellow Urine Appearance Cloudy H (Clear) Urine pH 6.5 (5.0-8.0) Ur Specific [place] 1.028 (1.001-1.035) Urine Protein Trace H (Negative) Urine Glucose (UA) Negative (Negative) Urine Ketones Negative (Negative) Urine Blood Negative (Negative) Urine Nitrite Negative (Negative) Urine Bilirubin Negative (Negative) Urine Urobilinogen 2.0 (<2.0) mg/dL Ur Leukocyte Esterase Moderate H (Negative) Urine RBC 7 H (0-5) /hpf Urine WBC 14 H (0-5) /hpf Ur Squamous Epith Cells 37 H (0-4) /hpf Urine Bacteria Rare H (None) /hpf Urine Mucus Occasional H (None) /hpf Disposition <Rosalino Choudhury - Last Filed: 10/31/23 15:02> Is patient prescribed a controlled substance at d/c from ED?: No Time of Disposition: 17:04 <Belia Carlos - Last Filed: 10/31/23 18:22> Clinical Impression: Bartholin gland cyst Disposition: HOME SELF-CARE Condition: Good Instructions (If sedation given, give patient instructions): Bartholin Cyst (ED) Additional Instructions: Return to the emergency department if your symptoms worsen or not improve. Recommend they follow-up with your OB next week for further evaluation. Continue to use sitz bath's to keep the area clean Referrals: Brian Rogers MD [Primary Care Provider] - 1-2 days
[2023-10-31] MEDS: LIDOCAINE 1% INJ 10MG/ML (20 ML MDV) SQ ONE (15:24)
[2023-10-31 16:46] LABS: Appearance,Urine Cloudy (Clear); Bacteria,Urine Rare /hpf; Bilirubin,Urine Negative (Negative); Blood,Urine Negative (Negative); Color,Urine Yellow; Glucose,Urine (UA) Negative (Negative); Ketones,Urine Negative (Negative); Leukocyte Esterase,Urine Moderate (Negative); Mucus,Urine Occasional /hpf; Nitrite,Urine Negative (Negative); PH, Urine 6.5 (5.0-8.0); Protein,Urine Trace (Negative); RBC,Urine 7 /hpf (0-5); Specific Gravity,Urine 1.028 (1.001-1.035); Squamous Epithelial Cell,Urine 37 /hpf (0-4); WBC,Urine 14 /hpf (0-5)
[2023-10-31 17:10] VITALS: BP 137/83; PULSE 98; TEMP 97.9
== END 2023-10-31 17:10 | disposition home or self-care (01) ==
LOC: EC 14:36
DX: N75.0 Cyst of Bartholin's gland (principal); F17.200 Nicotine dependence, unspecified, uncomplicated; F12.90 Cannabis use, unspecified, uncomplicated; Z88.5 Allergy status to narcotic agent; Z91.040 Latex allergy status; Z91.09 Other allergy status, other than to drugs and biological substances; Z88.8 Allergy status to other drugs, medicaments and biological substances
CPT/HCPCS: 81001; 99283; J2001

== ENCOUNTER 2024-04-15 13:18 | Emergency (ER) | payer OTHER ==
--- NOTE | 2024-04-15 13:36 | ED ---
General Adult HPI - General Source: patient, RN notes reviewed <Belia Carlos - Last Filed: 04/15/24 13:35> - General Source: RN notes reviewed, old records reviewed Mode of arrival: ambulatory Limitations: no limitations - History of Present Illness -: days(s) Location: abdomen Radiation: abdomen Severity scale (1-10): 6 Quality: stabbing, aching Consistency: intermittent Improves with: none Worsens with: none Associated Symptoms: denies other symptoms Treatments Prior to Arrival: none <Andrew Dean - Last Filed: 04/21/24 21:59> - General Stated complaint: Abd pain Time Seen by Provider: 04/15/24 13:30 - History of Present Illness Initial comments: Quick [id number] female presenting to emergency room chief complaint of left lower quadrant abdominal pain that has been worsening over the past week. Patient states that she has a history of diverticulitis and this feels similar. Endorses nausea, fevers, chills. Denies diarrhea. Denies previous surgical abdominal history (Belia Carlos) This is a 34-year-old female who believes she is returning for left lower quadrant pain from diverticulitis does not want any further CAT scan and your imaging (Andrew Dean) - Related Data Home Medications Medication Instructions Recorded Confirmed Sertraline [Zoloft] 100 mg PO DAILY 09/20/17 01/29/19 traZODone HCL [Desyrel] 100 mg PO HS 09/20/17 01/29/19 Ondansetron Odt [Zofran ODT] 4 mg PO Q12HR PRN 06/22/18 01/29/19 Omeprazole [PriLOSEC] 40 mg PO DAILY 01/29/19 01/29/19 Previous Rx's Medication Instructions Recorded Albuterol Inhaler [Ventolin Hfa 1 - 2 puff INHALATION RT-Q6H PRN 06/28/18 Inhaler] #1 inhaler Amoxic-Pot Clav 875-125Mg 1 tab PO Q12HR #28 tab 01/16/23 [Augmentin 875-125] Dicyclomine [Bentyl] 20 mg PO TID #30 tablet 01/16/23 Amoxic-Pot Clav 875-125Mg 1 tab PO Q12HR #20 tablet 04/15/24 [Augmentin 875-125] Allergies Allergy/AdvReac Type Severity Reaction Status Date / Time adhesive Allergy Rash/Hives Verified 04/15/24 13:37 latex Allergy Rash/Hives Verified 04/15/24 13:37 codeine AdvReac Nausea & Verified 04/15/24 13:37 Vomiting metronidazole [From Flagyl] AdvReac Nausea & Verified 04/15/24 13:37 Vomiting Review of Systems ROS Other: All systems not noted in ROS Statement are negative. <Belia Carlos - Last Filed: 04/15/24 13:35> ROS Other: All systems not noted in ROS Statement are negative. <Andrew Dean - Last Filed: 04/21/24 21:59> ROS Statement: Those systems with pertinent positive or pertinent negative responses have been documented in the HPI. Past Medical History Past Medical History: Blood Disorder, Hypertension Additional Past Medical History / Comment(s): FREQUENT DIARRHEA AND BLOOD IN STOOL- diverticulitis, MTHFR, HX Back pain, miscarriage x4. 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, RT BREAST BENIGN CYST Past Anesthesia/Blood Transfusion Reactions: Motion Sickness, Postoperative Nausea & Vomiting (PONV) Additional Past Anesthesia/Blood Transfusion Reaction / Comment(s): no hx blood transfusion Past Psychological History: Anxiety, Depression Smoking Status: Current every day smoker Past Alcohol Use History: None Reported Past Drug Use History: Marijuana - Past Family History Mother Family Medical History: Cancer Additional Family Medical History / Comment(s): skin cancer FATHER Family Medical History: Cancer, Deep Vein Thrombosis (DVT) Additional Family Medical History / Comment(s): skin cancer <Belia Carlos - Last Filed: 04/15/24 13:35> General Exam <Belia Carlos - Last Filed: 04/15/24 13:35> General appearance: alert, in no apparent distress Head exam: Present: atraumatic, normocephalic, normal inspection Eye exam: Present: normal appearance, PERRL, EOMI. Absent: scleral icterus, conjunctival injection, periorbital swelling ENT exam: Present: normal exam, mucous membranes moist Neck exam: Present: normal inspection. Absent: tenderness, meningismus, lymphadenopathy Respiratory exam: Present: normal lung sounds bilaterally. Absent: respiratory distress, wheezes, rales, rhonchi, stridor Cardiovascular Exam: Present: regular rate, normal rhythm, normal heart sounds. Absent: systolic murmur, diastolic murmur, rubs, gallop, clicks GI/Abdominal exam: Present: soft, normal bowel sounds. Absent: distended, tenderness, guarding, rebound, rigid Extremities exam: Present: normal inspection, full ROM, normal capillary refill. Absent: tenderness, pedal edema, joint swelling, calf tenderness Back exam: Present: normal inspection Neurological exam: Present: alert, oriented X3, CN II-XII intact Psychiatric exam: Present: normal affect, normal mood Skin exam: Present: warm, dry, intact, normal color. Absent: rash <Andrew Dean - Last Filed: 04/21/24 21:59> - General Exam Comments Initial Comments: Visual Physical Exam Vital signs reviewed General: Well-appearing, nontoxic, no acute distress. Head: Normocephalic, atraumatic Eyes: PERRLA, EOMI ENT: Airway patent Chest: Nonlabored breathing Skin: No visual rash, normal skin tone Neuro: Alert and oriented 3 Musculoskeletal: No gross abnormalities (Stieler,Belia) Course <Andrew Dean - Last Filed: 04/21/24 21:59> Vital Signs 04/15/24 04/15/24 13:35 17:33 Temperature 98.8 F Pulse Rate 86 88 Respiratory 16 20 Rate Blood Pressure 128/86 142/79 O2 Sat by Pulse 100 99 Oximetry - Reevaluation(s) Reevaluation #1: 04/15/24 16:44 Medical records reviewed (Andrew Dean) Reevaluation #2: 04/15/24 16:44 Symptoms improved (Andrew Dean) Reevaluation #3: 04/15/24 16:44 Informed results and questions answered (Andrew Dean) Reevaluation #4: Was pt. sent in by a medical professional or institution (, PA, HUMAN SERVICES WORKER, urgent care, hospital, or longterm...) When possible be specific @ -no Did you speak to anyone other than the patient for history (EMS, parent, family, police, friend...)? What history was obtained from this source @ -no Did you review nursing and triage notes (agree or disagree)? Why? @ -agree Are old charts reviewed (outside hosp., previous admission, EMS record, old EKG, old radiological studies, urgent care reports/EKG's, longterm records)? Report findings @ -yes Differential Diagnosis (chest pain, altered mental status, abdominal pain women, abdominal pain men, vaginal bleeding, weakness, fever, dyspnea, syncope, headache, dizziness, GI bleed, back pain, seizure, CVA, palpatations, mental health, musculoskeletal)? @ -prior EKG interpreted by me (3pts min.). @ -no X-rays interpreted by me (1pt min.). @ -no CT interpreted by me (1pt min.). @ -no U/S interpreted by me (1pt. min.). @ -no What testing was considered but not performed or refused? (CT, X-rays, U/S, lab s)? Why? @ -none What meds were considered but not given or refused? Why? @ -none Did you discuss the management of the patient with other professionals (professionals i.e. , PA, HUMAN SERVICES WORKER, lab, RT, psych nurse, social services technician, shift foreman, teacher, chief compliance officer, pillowcase maker)? Give summary @ -no Was smoking cessation discussed for >3mins.? @ -no Was critical care preformed (if so, how long)? @ -no Were there social determinants of health that impacted care today? How? (Homelessness, low income, unemployed, alcoholism, drug addiction, transportation, low edu. Level, literacy, decrease access to med. care, snf, rehab)? @ -none Was there de-escalation of care discussed even if they declined (Discuss DNR or withdrawal of care, Hospice)? DNR status @ -no What co-morbidities impacted this encounter? (DM, HTN, Smoking, COPD, CAD, Cancer, CVA, ARF, Chemo, Hep., AIDS, mental health diagnosis, sleep apnea, morbid obesity)? @ -none Was patient admitted / discharged? Hospital course, mention meds given and route, prescriptions, significant lab abnormalities, going to OR and other pertinent info. @ - 34 female to the ER for evaluation patient presents today for evaluation of left sided abdominal pain diverticulitis recurrent. Patient given antibiotics pain meds and can be discharged home Discharge Undiagnosed new problem with uncertain prognosis? @ -no Drug Therapy requiring intensive monitoring for toxicity (Heparin, Nitro, Insulin, Cardizem)? @ -no Were any procedures done? @ -no Diagnosis/symptom? @ -Diverticulitis Acute, or Chronic, or Acute on Chronic? @ -Acute Uncomplicated (without systemic symptoms) or Complicated (systemic symptoms)? @ -Complicated Side effects of treatment? @ -no Exacerbation, Progression, or Severe Exacerbation? @ -exacerbation Poses a threat to life or bodily function? How? (Chest pain, [place], [place], pneumonia, PE, COPD, DKA, ARF, appy, cholecystitis, CVA, Diverticulitis, Homicidal, Suicidal, threat to staff... and all critical care pts) @ -yes with significant history of diverticulitis recurrent (Andrew Dean) Reevaluation #5: Differential Abdominal Pain Women: Appendicitis, Cholecystitis, diverticulosis, ischemic bowel, pancreatitis, hepatitis, UTI, gastroenteritis, AAA, incarcerated hernia, bowel obstruction, constipation, inflammatory bowel, hepatitis, peptic ulcer disease, splenic i nfarction, perforated viscus, vulvitis, ovarian torsion, PID, kidney stone, placenta abruption, this is not meant to be an all-inclusive list (Andrew Dean) Medical Decision Making <Belia Carlos - Last Filed: 04/15/24 13:35> - Lab Data Result diagrams: 04/15/24 14:39 04/15/24 14:39 <Andrew Dean - Last Filed: 04/21/24 21:59> - Medical Decision Making I completed the quick note portion of this chart signed Belia Carlos PA-C (Belia Carlos) 34 female to the ER for evaluation patient presents today for evaluation of left sided abdominal pain diverticulitis recurrent. Patient given antibiotics pain meds and can be discharged home (Andrew Dean) - Lab Data Lab Results 04/15/24 04/15/24 04/15/24 Range/Units 14:39 14:39 14:39 WBC 7.4 (3.8-10.6) k/uL RBC 3.83 (3.80-5.40) m/uL Hgb 10.3 L (11.4-16.0) gm/dL Hct 33.3 L (34.0-46.0) % MCV 87.0 (80.0-100.0) fL MCH 26.9 (25.0-35.0) pg MCHC 31.0 (31.0-37.0) g/dL RDW 15.2 (11.5-15.5) % Plt Count 398 (150-450) k/uL MPV 7.5 Neutrophils % 63 % Lymphocytes % 25 % Monocytes % 5 % Eosinophils % 5 % Basophils % 0 % Neutrophils # 4.7 (1.3-7.7) k/uL Lymphocytes # 1.8 (1.0-4.8) k/uL Monocytes # 0.4 (0-1.0) k/uL Eosinophils # 0.3 (0-0.7) k/uL Basophils # 0.0 (0-0.2) k/uL Hypochromasia Moderate Poikilocytosis Slight Sodium (137-145) mmol/L Potassium (3.5-5.1) mmol/L Chloride (98-107) mmol/L Carbon Dioxide (22-30) mmol/L Anion Gap mmol/L BUN (7-17) mg/dL Creatinine (0.52-1.04) mg/dL Est GFR (CKD-EPI)AfAm (>60 ml/min/1.73 sqM) Est GFR (CKD-EPI)NonAf (>60 ml/min/1.73 sqM) Glucose (74-99) mg/dL Plasma Lactic Acid Del (0.7-2.0) mmol/L Calcium (8.4-10.2) mg/dL Total Bilirubin (0.2-1.3) mg/dL AST (14-36) U/L ALT (4-34) U/L Alkaline Phosphatase (38-126) U/L Total Protein (6.3-8.2) g/dL Albumin (3.5-5.0) g/dL Amylase (30-110) U/L Lipase (23-300) U/L Urine Color Yellow Urine Appearance Clear (Clear) Urine pH 7.5 (5.0-8.0) Ur Specific Wann 1.024 (1.001-1.035) Urine Protein Trace H (Negative) Urine Glucose (UA) Negative (Negative) Urine Ketones Negative (Negative) Urine Blood Negative (Negative) Urine Nitrite Negative (Negative) Urine Bilirubin Negative (Negative) Urine Urobilinogen 2.0 (<2.0) mg/dL Ur Leukocyte Esterase Negative (Negative) Urine HCG, Qual Not Detected (Not Detectd) 04/15/24 04/15/24 Range/Units 14:39 14:39 WBC (3.8-10.6) k/uL RBC (3.80-5.40) m/uL Hgb (11.4-16.0) gm/dL Hct (34.0-46.0) % MCV (80.0-100.0) fL MCH (25.0-35.0) pg MCHC (31.0-37.0) g/dL RDW (11.5-15.5) % Plt Count (150-450) k/uL MPV Neutrophils % % Lymphocytes % % Monocytes % % Eosinophils % % Basophils % % Neutrophils # (1.3-7.7) k/uL Lymphocytes # (1.0-4.8) k/uL Monocytes # (0-1.0) k/uL Eosinophils # (0-0.7) k/uL Basophils # (0-0.2) k/uL Hypochromasia Poikilocytosis Sodium 139 (137-145) mmol/L Potassium 4.2 (3.5-5.1) mmol/L Chloride 107 (98-107) mmol/L Carbon Dioxide 25 (22-30) mmol/L Anion Gap 7 mmol/L BUN 10 (7-17) mg/dL Creatinine 0.76 (0.52-1.04) mg/dL Est GFR (CKD-EPI)AfAm >90 (>60 ml/min/1.73 sqM) Est GFR (CKD-EPI)NonAf >90 (>60 ml/min/1.73 sqM) Glucose 90 (74-99) mg/dL Plasma Lactic Acid Del 1.1 (0.7-2.0) mmol/L Calcium 9.1 (8.4-10.2) mg/dL Total Bilirubin 0.4 (0.2-1.3) mg/dL AST 18 (14-36) U/L ALT 13 (4-34) U/L Alkaline Phosphatase 69 (38-126) U/L Total Protein 8.5 H (6.3-8.2) g/dL Albumin 4.7 (3.5-5.0) g/dL Amylase 43 (30-110) U/L Lipase 42 (23-300) U/L Urine Color Urine Appearance (Clear) Urine pH (5.0-8.0) Ur Specific Wann (1.001-1.035) Urine Protein (Negative) Urine Glucose (UA) (Negative) Urine Ketones (Negative) Urine Blood (Negative) Urine Nitrite (Negative) Urine Bilirubin (Negative) Urine Urobilinogen (<2.0) mg/dL Ur Leukocyte Esterase (Negative) Urine HCG, Qual (Not Detectd) Disposition <Belia Carlos - Last Filed: 04/15/24 13:35> Is patient prescribed a controlled substance at d/c from ED?: No Time of Disposition: 16:25 <Andrew Dean - Last Filed: 04/21/24 21:59> Clinical Impression: Abdominal pain, Diverticulitis Disposition: HOME SELF-CARE Condition: Fair Instructions (If sedation given, give patient instructions): Diverticulitis (ED) Prescriptions: Amoxic-Pot Clav 875-125Mg [Augmentin 875-125] 1 tab PO Q12HR #20 tablet Referrals: Brian Rogers MD [Primary Care Provider] - 1-2 days
[2024-04-15 13:37] VITALS: TEMP 98.8
[2024-04-15 14:45] LABS: Basophils % (A) 0 %; Eosinophils # (A) 0.3 k/uL (0-0.7); Eosinophils % (A) 5 %; HCT 33.3 % (34.0-46.0); HGB 10.3 gm/dL (11.4-16.0); Hypochromasia Moderate; Lymphocytes # (A) 1.8 k/uL (1.0-4.8); Lymphocytes % (A) 25 %; MCH 26.9 pg (25.0-35.0); Mean Platelet Volume 7.5; Monocytes # (A) 0.4 k/uL (0-1.0); Monocytes % (A) 5 %; Neutrophils # (A) 4.7 k/uL (1.3-7.7); Neutrophils % (A) 63 %; Platelet Count 398 k/uL (150-450); Poikilocytosis Slight; RBC 3.83 m/uL (3.80-5.40); RDW 15.2 % (11.5-15.5); WBC 7.4 k/uL (3.8-10.6)
[2024-04-15 14:46] LABS: Appearance,Urine Clear (Clear); Bilirubin,Urine Negative (Negative); Blood,Urine Negative (Negative); Color,Urine Yellow; Glucose,Urine (UA) Negative (Negative); Ketones,Urine Negative (Negative); Leukocyte Esterase,Urine Negative (Negative); Nitrite,Urine Negative (Negative); PH, Urine 7.5 (5.0-8.0); Protein,Urine Trace (Negative); Specific Gravity,Urine 1.024 (1.001-1.035)
[2024-04-15 15:02] LABS: ALT 13 U/L (4-34); AST 18 U/L (14-36); African American GFR (CKD) >90 (>60 ml/min/1.73 sqM); Albumin 4.7 g/dL (3.5-5.0); Alkaline Phosphatase 69 U/L (38-126); Amylase 43 U/L (30-110); Anion Gap 7 mmol/L; Blood Urea Nitrogen 10 mg/dL (7-17); Calcium 9.1 mg/dL (8.4-10.2); Carbon Dioxide 25 mmol/L (22-30); Chloride 107 mmol/L (98-107); Glucose 90 mg/dL (74-99); Lipase 42 U/L (23-300); Non-African American GFR(CKD) >90 (>60 ml/min/1.73 sqM); Potassium 4.2 mmol/L (3.5-5.1); Sodium 139 mmol/L (137-145); Total Bilirubin 0.4 mg/dL (0.2-1.3); Total Protein 8.5 g/dL (6.3-8.2)
[2024-04-15] MEDS: SODIUM CHLORIDE 0.9% 2,000 ML IV STA (16:05)
[2024-04-15] MEDS: ONDANSETRON 4 MG/2 ML VIAL IVP STA (16:06)
[2024-04-15] MEDS: HYDROmorphone 1 MG/ML 1 ML SYRINGE IVP STA (16:07)
[2024-04-15] MEDS: AMPICILLIN-SULBACTAM 3 GM in SODIUM CHLORIDE 0.9% 100 ML IVPB STA (16:10)
[2024-04-15] MEDS: AMOXIC-POT CLAV 875MG STARTER PACK 2 TAB BTL PO STA (17:29)
[2024-04-15] MEDS: traMADol 50 MG STARTER PACK 3 TAB BTL PO STA (17:29)
[2024-04-15] MEDS: ONDANSETRON 4 MG ODT STARTER PACK 2 TAB BTL PO STA (17:29)
[2024-04-15 17:34] VITALS: BP 142/79; PULSE 88; RESP 20
== END 2024-04-15 17:34 | disposition home or self-care (01) ==
LOC: EC 13:18
DX: R10.9 Unspecified abdominal pain (principal); K57.32 Diverticulitis of large intestine without perforation or abscess without bleeding; F17.200 Nicotine dependence, unspecified, uncomplicated; Z88.1 Allergy status to other antibiotic agents; Z88.5 Allergy status to narcotic agent; Z91.09 Other allergy status, other than to drugs and biological substances; Z91.040 Latex allergy status
CPT/HCPCS: 36415; 80053; 82150; 83605; 83690; 85025; 81003; 81025; 99284; 96365; 96375; 96361; J2405; J1171; J0295; S0119

== ENCOUNTER 2024-10-24 12:11 | Day surgery (SDC) | payer OTHER ==
[~2024-10-24 12:11] MED LIST changes: -LIDOCAINE 1% 20 ML VIAL (10MG/ML) FOR IV START INTRADERMA PRN; -LIDOCAINE 1% INJ 10MG/ML (20 ML MDV) ONE; -PROPOFOL 10 MG/ML 20 ML VIAL IV ONE
[2024-10-24] MEDS: IV FLUID CONTINUATION 1,000 ML IV ONE (13:25)
[2024-10-24 13:34] VITALS: TEMP 96.8
[2024-10-24] MEDS ORDERED: PROPOFOL 10 MG/ML 20 ML VIAL IV ONE (14:29)
--- NOTE | 2024-10-24 14:48 | P.PCN ---
Date of Procedure: 10/24/24 Procedure(s) Performed: BRIEF HISTORY: Patient is a 34-year-old pleasant white female scheduled for an elective colonoscopy as a part of evaluation of intermittent rectal bleeding. PROCEDURE PERFORMED: Colonoscopy. PREOPERATIVE DIAGNOSIS: Intermittent rectal bleeding. IV sedation per Anesthesia. PROCEDURE: After informed consent was obtained, the patient, was brought into the endoscopy unit. IV sedation was administered by Anesthesia under continuous monitoring. Digital rectal examination was normal. Initially the Olympus CF-160 flexible video colonoscope was then inserted in the rectum, gradually advanced into the cecum without any difficulty. Careful examination was performed as the scope was gradually being withdrawn. Ileocecal valve and the appendiceal orifice were visualized and appeared normal. Prep was excellent. Mucosa of the cecum, ascending colon, transverse colon, descending colon, sigmoid colon, and rectum appeared normal. Scattered sigmoid diverticulosis. Retroflexion was performed in the rectum and grade 2 internal hemorrhoids. Were seen. The patient tolerated the procedure well. IMPRESSION: Normal-appearing colon from rectum to cecum with no evidence of colitis or colorectal neoplasia.. Scattered sigmoid diverticulosis Grade 2 internal hemorrhoids RECOMMENDATIONS: Findings of this examination were discussed with the patient as well as her family. She was advised to be on high-fiber diet and fiber supplements on regular basis and while sitting and constipation..
[2024-10-24 15:16] VITALS: BP 135/92; PULSE 70; RESP 18
== END 2024-10-24 15:31 | disposition home or self-care (01) ==
LOC: ORWHC2ENDO 12:11
PROVIDERS: ATTEND Internal Medicine Gastroenterology
DX: K64.1 Second degree hemorrhoids (principal); K57.30 Diverticulosis of large intestine without perforation or abscess without bleeding; I10 Essential (primary) hypertension; J45.909 Unspecified asthma, uncomplicated; K21.9 Gastro-esophageal reflux disease without esophagitis; F41.9 Anxiety disorder, unspecified; F32.A Depression, unspecified; Z91.89 Other specified personal risk factors, not elsewhere classified; F17.200 Nicotine dependence, unspecified, uncomplicated; Z79.899 Other long term (current) drug therapy; Z91.040 Latex allergy status; Z88.5 Allergy status to narcotic agent; Z88.8 Allergy status to other drugs, medicaments and biological substances; Z91.048 Other nonmedicinal substance allergy status
CPT/HCPCS: 81025; 45378; J2704